=== PATIENT | female | born 1955 | race Caucasian/White ===

== ENCOUNTER 2019-11-29 20:14 | Emergency (ER) | payer MEDICARE, MEDICAID, SELFPAY ==
[2019-11-29 20:29] VITALS: BP 96/64; PULSE 96; RESP 16; TEMP 36.5; O2SAT 98; BMI 17.7
--- NOTE | 2019-11-29 22:26 | W.ED.GENADLT ---
HPI - General Adult General: Chief complaint: General Medical Stated complaint: cut hannah tubing from surgery Time Seen by Provider: 11/29/19 20:59 Source: patient Mode of arrival: ambulatory Limitations: no limitations History of Present Illness: HPI narrative: Patient is a 64-year-old unfortunate lady who was gynecologic and gastrointestinal malignancy and has had multiple surgeries for the same. She most recently had a pelvic clear out surgery in August 2019 and has colostomy and a HANNAH drain. She changes the dressing on her HANNAH drain every day and today well changing the dressing on was caught in the gauze she inadvertently caught to the HANNAH drain tubing. She had material leaking out of the cut end. She is here for evaluation. She has no other symptoms. Associated symptoms: Deny dyspnea, headache(s), nausea, rash, palpitations or vomiting Review of Systems General: Reports: 10 or more systems reviewed and unremarkable except in HPI and below Const: Denies: fever(s), chills or body aches Eyes: Denies: change in vision or blurry vision ENMT: Denies: throat pain, enlarged tonsils, odynophagia, hoarseness, mouth pain or swelling of lips/tongue Card: Denies: palpitations, irregular heart rhythm, edema or swelling of feet/ankles Resp: Denies: dyspnea, productive cough or non-productive cough GI: Reports: abdominal pain (Chronic); Denies: nausea or vomiting : Denies: flank pain, difficulty voiding, dysuria, urinary frequency, urinary urgency or urinary hesitancy Musc: Denies: neck pain, back pain or extremity swelling Skin/Breast: Denies: rash, pruritus or erythema Neuro: Denies: headache(s), numbness in extremities or weakness in extremities Endo: Denies: polyuria, polydipsia or tired all the time PFSH ED PFSH: Social History Smoking and tobacco status: never smoked Alcohol intake: never Substance/Drug Use: never Physical Exam Const: COMMON NORMALS: no acute distress, average body habitus, patient oriented x3, no limitations, healthy appearing, alert and well nourished Neck/C-Spine: COMMON NORMALS: no meningeal signs and no JVD Resp: COMMON NORMALS: normal respiratory effort, No retractions, No use of accessory muscles, clear to auscultation bilaterally and percussion normal AUSCULTATION: clear to auscultation bilaterally PERCUSSION: percussion normal Cardio: COMMON NORMALS: no JVD, regular rate, regular rhythm, S1 normal heart sound present, S2 normal heart sound present, No gallops present (Cardio), No clicks present (Cardio), No murmurs present (Cardio), No rub (Cardio) and Peripheral pulses 2+ throughout RATE: regular rate RHYTHM: regular rhythm HEART SOUNDS: S1 normal heart sound present and S2 normal heart sound present PERIPHERAL PULSES: Peripheral pulses 2+ throughout GI: COMMON NORMALS: Soft to palpation, No hepatosplenomegaly present, no masses and no bruits PALPATION: Yes Soft to palpation and Yes No hepatosplenomegaly present OTHER: She has a urostomy and a colostomy on her lower abdominal wall. She also has a HANNAH drain around the right upper quadrant region. HANNAH drain has been cut and, cut in a diagonal fashion with some brownish material leaking out. About 2 inches of the drain is taken out There is mild erythema around the HANNAH drain sites. : COMMON NORMALS: Yes no CVA tenderness BLADDER/KIDNEY EXAM: Yes no CVA tenderness Back/Pelvis: COMMON NORMALS: no CVA tenderness Neuro: COMMON NORMALS: patient oriented x3 SENSORIUM/ORIENTATION: Yes alert MENINGEAL SIGNS: Yes no meningeal signs Skin: COMMON NORMALS: no rashes or lesions noted, no wounds, turgor normal, no jaundice, no petechiae and no mottling GENERAL SKIN EXAM: no rashes or lesions noted and turgor normal Course Consultations: Consultation #1: Discussed with the surgeon on-call at [facility] he advised that we try to connect the bulb of the HANNAH tube to what his left of the HANNAH tube. She should call tomorrow to follow-up with her surgeons. Vital Signs: Vital signs: Vital Signs Temperature 97.7 F 11/29/19 20:29 Pulse Rate 86 11/29/19 22:41 Respiratory Rate 16 11/29/19 22:41 Blood Pressure 131/58 11/29/19 22:41 Pulse Oximetry 98 11/29/19 22:41 MDM - General Adult MDM Narrative: Medical decision making narrative: 64-year-old female with drain that unfortunately inadvertently cuts the drain while trying to change the dressing. I was able to connect to bulb of the HANNAH drain to the tubing of the HANNAH drain coming out on her abdomen via a size 8 urinary catheter. The connections were taped and a bulky dressing was applied to her abdomen. She is discharged to follow-up with her surgeons tomorrow Medical Records: Attestation: I reviewed the patient's medical records. Discharge Plan Discharge Patient Disposition: Home Clinical Impression: HANNAH drain, broken Qualifiers: Encounter type: initial encounter Qualified Code(s): T85.698A - Other mechanical complication of other specified internal prosthetic devices, implants and grafts, initial encounter Condition: Stable Discharge Orders: Discharge Order (Routine); Ordered 11/29/19 Ordered By: Pasquale Bloom Activity Restrictions/Additional Instructions: Return for any new or worsening symptoms. Take care not to pull the HANNAH drain out. Call the office of the surgeon either Dr. Donovan or Dr. Anders tomorrow for follow-up and to see what the advice you do. Continue other medications and management. Discharge Date/Time: 11/29/19 22:30 Coding Level of Care Code ED Research Test Engine Operator for Chg Fwd Exam Detailed
[2019-11-29 22:41] VITALS: BP 131/58; PULSE 86; RESP 16; O2SAT 98
== END 2019-11-29 22:30 | disposition home or self-care (01) ==
PROVIDERS: Emergency Provider Family Medicine
DX: T85.698A Other mechanical complication of other specified internal prosthetic devices, implants and grafts, initial encounter (principal)
CPT/HCPCS: 12345; 99281

== ENCOUNTER 2020-01-08 19:35 | Emergency (ER) | payer MEDICARE, MEDICAID, SELFPAY ==
[2020-01-08 20:33] VITALS: BP 133/89; PULSE 121; RESP 20; TEMP 36.8; O2SAT 100; BMI 17.6
[2020-01-08 21:00] LABS: Basophils % 0.4 %; Hematocrit 37.4 % (37.0-47.0); Hemoglobin 11.6 g/dL (11.5-15.3); Lymphocytes # 1.4 10^3/uL (0.8-4.8); Mean Corpuscular Volume 83.9 fL (81-99); Mean Platelet Volume 9.9 fL (7.4-10.4); Monocytes # 0.5 10^3/uL (0.2-0.9); Monocytes % 5.2 %; Nucleated Red Blood Cells % 0 %; Platelet Count 430 10^3/cmm (130-400); Red Blood Count 4.46 10^6/uL (4.1-5.3); White Blood Count 9.3 10^3/uL (4.0-10.0)
[2020-01-08 21:17] LABS: Alanine Aminotransferase 46 U/L (0-33); Albumin Level 2.9 g/dL (3.5-5.2); Alkaline Phosphatase 158 IU/L (35-105); Blood Urea Nitrogen 35 mg/dL (8-23); Calcium 9.2 mg/dL (8.5-10.5); Carbon Dioxide 17 mmol/L (22-29); Chloride 102 mmol/L (98-107); Creatinine Clr Calc Pharmacy 54.8777; Globulin 3.7 g/dL (1.3-4.6); Glomerular Filtration Rate 100.3 mL/min (90-130); Glucose 157 mg/dL (65-115); Osmolality Calculated 283 mOsm/kg (285-295); Sodium 131 mmol/L (136-145); Total Bilirubin 0.8 mg/dL (0.15-1.2); Total Protein 6.6 g/dL (6.6-8.7)
[2020-01-08 21:19] LABS: Anion Gap 16.7 (5-19); Aspartate Amino Transferase 38 U/L (0-32); Potassium 4.7 mmol/L (3.5-5.1)
== END 2020-01-09 00:08 ==
LOC: ER 20:21
PROVIDERS: Emergency Provider Family Medicine
DX: Z53.21 Procedure and treatment not carried out due to patient leaving prior to being seen by health care provider (principal)
CPT/HCPCS: 36415; 80053; 85025; 99281

== ENCOUNTER 2020-02-15 15:01 | Outpatient (CLI) | payer MEDICARE, MEDICAID, SELFPAY ==
[2020-02-15 17:12] LABS: Hematocrit 32.1 % (37.0-47.0); Hemoglobin 9.3 g/dL (11.5-15.3); Mean Corpuscular Hemoglobin 27.5 pg (28.0-34.0); Mean Platelet Volume 10.8 fL (7.4-10.4); Platelet Count 323 10^3/cmm (130-400); Red Blood Count 3.38 10^6/uL (4.1-5.3); Red Cell Distribution Width 16.7 % (12.1-15.1); White Blood Count 7.4 10^3/uL (4.0-10.0)
[2020-02-15 17:47] LABS: Alanine Aminotransferase 11 U/L (0-33); Albumin Level 2.9 g/dL (3.5-5.2); Alkaline Phosphatase 121 IU/L (35-105); Aspartate Amino Transferase 16 U/L (0-32); Blood Urea Nitrogen 28 mg/dL (8-23); Calcium 8.8 mg/dL (8.5-10.5); Carbon Dioxide 28 mmol/L (22-29); Chloride 99 mmol/L (98-107); Globulin 3.5 g/dL (1.3-4.6); Glomerular Filtration Rate 160.2 mL/min (90-130); Glucose 91 mg/dL (65-115); Magnesium 2.1 mg/dL (1.7-2.3); Osmolality Calculated 291 mOsm/kg (285-295); Phosphorus 4.5 mg/dL (2.5-4.5); Sodium 138 mmol/L (136-145); Total Bilirubin 0.2 mg/dL (0.15-1.2); Total Protein 6.4 g/dL (6.6-8.7)
[2020-02-15 19:50] LABS: Absolute Segmented Neutrophil 5.6 10/cmm (1.6-7.1); Lymphocytes 21 %; Monocytes Absolute 0.2 10^3/cmm (0.1-0.6); Segmented Neutrophils 75 %; Total Cells Counted 100 (0-100)
[2020-02-15 19:54] LABS: Platelet Estimate Normal (Normal)
[2020-02-15 19:55] LABS: Absolute Neutrophil 5.6 10^3/cmm (1.4-6.5); Eosinophils 0 %
== END 2020-02-15 15:02 | disposition home or self-care (01) ==
LOC: LAB 15:04
PROVIDERS: Visit Provider Colon & Rectal Surgery
DX: Z45.2 Encounter for adjustment and management of vascular access device (principal)
CPT/HCPCS: 80053; 83735; 84100; 85007; 85027

== ENCOUNTER 2020-02-22 16:57 | Outpatient (CLI) | payer MEDICARE, MEDICAID, SELFPAY ==
[2020-02-22 17:38] LABS: Hematocrit 29.4 % (37.0-47.0); Hemoglobin 8.8 g/dL (11.5-15.3); Mean Corpuscular HGB Conc 29.9 g/dL (30.0-36.0); Mean Corpuscular Hemoglobin 27.5 pg (28.0-34.0); Mean Corpuscular Volume 91.9 fL (81-99); Mean Platelet Volume 10.5 fL (7.4-10.4); Platelet Count 333 10^3/cmm (130-400); Red Cell Distribution Width 15.5 % (12.1-15.1); White Blood Count 5.7 10^3/uL (4.0-10.0)
[2020-02-22 18:13] LABS: Absolute Segmented Neutrophil 3.9 10/cmm (1.6-7.1); Band Neutrophils Absolute 0.1 10^3/cmm (0.0-1.2); Eosinophils 1 %; Lymphocytes 24 %; Monocytes Absolute 0.2 10^3/cmm (0.1-0.6); Segmented Neutrophils 69 %; Total Cells Counted 100 (0-100)
[2020-02-22 18:14] LABS: Platelet Estimate Normal (Normal)
[2020-02-22 19:21] LABS: Alanine Aminotransferase 9 U/L (0-33); Albumin Level 2.9 g/dL (3.5-5.2); Alkaline Phosphatase 110 IU/L (35-105); Anion Gap 13.1 (5-19); Aspartate Amino Transferase 20 U/L (0-32); Blood Urea Nitrogen 20 mg/dL (8-23); Carbon Dioxide 25 mmol/L (22-29); Chloride 103 mmol/L (98-107); Globulin 3.7 g/dL (1.3-4.6); Glomerular Filtration Rate 123.8 mL/min (90-130); Glucose 88 mg/dL (65-115); Osmolality Calculated 286 mOsm/kg (285-295); Phosphorus 4.3 mg/dL (2.5-4.5); Potassium 4.1 mmol/L (3.5-5.1); Sodium 137 mmol/L (136-145); Total Bilirubin 0.2 mg/dL (0.15-1.2); Total Protein 6.6 g/dL (6.6-8.7)
== END 2020-02-22 16:58 | disposition home or self-care (01) ==
LOC: LAB 17:01
PROVIDERS: Visit Provider Colon & Rectal Surgery
DX: K63.2 Fistula of intestine (principal)
CPT/HCPCS: 80053; 83735; 84100; 85007; 85027

== ENCOUNTER 2020-02-29 15:06 | Outpatient (CLI) | payer MEDICARE, MEDICAID, SELFPAY ==
[2020-02-29 15:27] LABS: Basophils % 0.6 %; Eosinophils # 0.1 10^3/uL (0.0-0.8); Hematocrit 31.1 % (37.0-47.0); Hemoglobin 9.1 g/dL (11.5-15.3); Lymphocytes # 1.5 10^3/uL (0.8-4.8); Lymphocytes % 31.1 %; Mean Corpuscular HGB Conc 29.3 g/dL (30.0-36.0); Mean Corpuscular Hemoglobin 26.5 pg (28.0-34.0); Mean Corpuscular Volume 90.7 fL (81-99); Mean Platelet Volume 10.4 fL (7.4-10.4); Monocytes # 0.4 10^3/uL (0.2-0.9); Neutrophils % 59.3 %; Nucleated Red Blood Cells % 0 %; Platelet Count 346 10^3/cmm (130-400); Red Blood Count 3.43 10^6/uL (4.1-5.3); Red Cell Distribution Width 15.4 % (12.1-15.1); White Blood Count 4.9 10^3/uL (4.0-10.0)
[2020-02-29 16:15] LABS: Alanine Aminotransferase 10 U/L (0-33); Albumin Level 3.1 g/dL (3.5-5.2); Alkaline Phosphatase 114 IU/L (35-105); Anion Gap 14.5 (5-19); Aspartate Amino Transferase 18 U/L (0-32); Blood Urea Nitrogen 22 mg/dL (8-23); Calcium 9.1 mg/dL (8.5-10.5); Carbon Dioxide 26 mmol/L (22-29); Chloride 103 mmol/L (98-107); Globulin 3.4 g/dL (1.3-4.6); Glomerular Filtration Rate 123.8 mL/min (90-130); Glucose 99 mg/dL (65-115); Osmolality Calculated 291 mOsm/kg (285-295); Phosphorus 4.2 mg/dL (2.5-4.5); Potassium 4.5 mmol/L (3.5-5.1); Sodium 139 mmol/L (136-145); Total Bilirubin 0.2 mg/dL (0.15-1.2); Total Protein 6.5 g/dL (6.6-8.7)
== END 2020-02-29 15:07 | disposition home or self-care (01) ==
PROVIDERS: Visit Provider Colon & Rectal Surgery
DX: K63.2 Fistula of intestine (principal)
CPT/HCPCS: 80053; 83735; 84100; 85025

== ENCOUNTER 2020-03-08 12:13 | Outpatient (CLI) | payer MEDICARE, MEDICAID, SELFPAY ==
[2020-03-08 12:48] LABS: Basophils % 0.5 %; Eosinophils # 0.1 10^3/uL (0.0-0.8); Eosinophils % 0.9 %; Hematocrit 32.6 % (37.0-47.0); Hemoglobin 9.4 g/dL (11.5-15.3); Lymphocytes # 1.5 10^3/uL (0.8-4.8); Lymphocytes % 19.5 %; Mean Corpuscular HGB Conc 28.8 g/dL (30.0-36.0); Mean Corpuscular Hemoglobin 26.1 pg (28.0-34.0); Mean Corpuscular Volume 90.6 fL (81-99); Mean Platelet Volume 10.7 fL (7.4-10.4); Monocytes # 0.5 10^3/uL (0.2-0.9); Monocytes % 6.1 %; Neutrophils # 5.44 10^3/uL (1.8-7.7); Neutrophils % 72.9 %; Nucleated Red Blood Cells % 0 %; Platelet Count 343 10^3/cmm (130-400); Red Cell Distribution Width 15.4 % (12.1-15.1); White Blood Count 7.5 10^3/uL (4.0-10.0)
[2020-03-08 13:23] LABS: Alanine Aminotransferase 12 U/L (0-33); Albumin Level 3.1 g/dL (3.5-5.2); Alkaline Phosphatase 108 IU/L (35-105); Anion Gap 11.4 (5-19); Aspartate Amino Transferase 17 U/L (0-32); Blood Urea Nitrogen 27 mg/dL (8-23); Calcium 8.8 mg/dL (8.5-10.5); Carbon Dioxide 28 mmol/L (22-29); Chloride 104 mmol/L (98-107); Globulin 3.4 g/dL (1.3-4.6); Glomerular Filtration Rate 123.8 mL/min (90-130); Glucose 104 mg/dL (65-115); Magnesium 1.9 mg/dL (1.7-2.3); Osmolality Calculated 293 mOsm/kg (285-295); Phosphorus 4.3 mg/dL (2.5-4.5); Potassium 4.4 mmol/L (3.5-5.1); Sodium 139 mmol/L (136-145); Total Bilirubin 0.2 mg/dL (0.15-1.2); Total Protein 6.5 g/dL (6.6-8.7)
== END 2020-03-08 12:14 | disposition home or self-care (01) ==
LOC: LAB 12:13
PROVIDERS: Visit Provider Colon & Rectal Surgery
DX: K63.2 Fistula of intestine (principal)
CPT/HCPCS: 80053; 83735; 84100; 85025

== ENCOUNTER 2020-03-14 14:32 | Outpatient (CLI) | payer MEDICARE, MEDICAID, SELFPAY ==
[2020-03-14 15:11] LABS: Basophils % 0.3 %; Eosinophils % 0.2 %; Hematocrit 32.9 % (37.0-47.0); Hemoglobin 9.7 g/dL (11.5-15.3); Lymphocytes % 9.9 %; Mean Corpuscular HGB Conc 29.5 g/dL (30.0-36.0); Mean Corpuscular Hemoglobin 25.9 pg (28.0-34.0); Mean Platelet Volume 10.7 fL (7.4-10.4); Monocytes # 0.6 10^3/uL (0.2-0.9); Monocytes % 5.7 %; Neutrophils # 8.63 10^3/uL (1.8-7.7); Neutrophils % 83.7 %; Nucleated Red Blood Cells % 0 %; Platelet Count 350 10^3/cmm (130-400); Red Blood Count 3.74 10^6/uL (4.1-5.3); Red Cell Distribution Width 15.8 % (12.1-15.1); White Blood Count 10.3 10^3/uL (4.0-10.0)
[2020-03-14 15:27] LABS: Alanine Aminotransferase 14 U/L (0-33); Albumin Level 3.3 g/dL (3.5-5.2); Alkaline Phosphatase 117 IU/L (35-105); Anion Gap 16.4 (5-19); Aspartate Amino Transferase 19 U/L (0-32); Blood Urea Nitrogen 29 mg/dL (8-23); Carbon Dioxide 25 mmol/L (22-29); Chloride 101 mmol/L (98-107); Globulin 3.3 g/dL (1.3-4.6); Glomerular Filtration Rate 100.3 mL/min (90-130); Glucose 107 mg/dL (65-115); Osmolality Calculated 292 mOsm/kg (285-295); Phosphorus 4.5 mg/dL (2.5-4.5); Potassium 4.4 mmol/L (3.5-5.1); Sodium 138 mmol/L (136-145); Total Bilirubin 0.2 mg/dL (0.15-1.2); Total Protein 6.6 g/dL (6.6-8.7)
== END 2020-03-14 14:33 | disposition home or self-care (01) ==
PROVIDERS: Visit Provider Colon & Rectal Surgery
DX: K63.2 Fistula of intestine (principal)
CPT/HCPCS: 80053; 83735; 84100; 85025

== ENCOUNTER 2020-03-21 15:06 | Outpatient (CLI) | payer MEDICARE, MEDICAID, SELFPAY ==
[2020-03-21 15:49] LABS: Basophils % 0.5 %; Eosinophils # 0.1 10^3/uL (0.0-0.8); Eosinophils % 1.4 %; Hematocrit 30.8 % (37.0-47.0); Hemoglobin 9.1 g/dL (11.5-15.3); Lymphocytes # 1.9 10^3/uL (0.8-4.8); Lymphocytes % 33.9 %; Mean Corpuscular HGB Conc 29.5 g/dL (30.0-36.0); Mean Corpuscular Hemoglobin 25.8 pg (28.0-34.0); Mean Corpuscular Volume 87.3 fL (81-99); Mean Platelet Volume 10.4 fL (7.4-10.4); Monocytes # 0.4 10^3/uL (0.2-0.9); Monocytes % 7.3 %; Neutrophils # 3.24 10^3/uL (1.8-7.7); Neutrophils % 56.7 %; Nucleated Red Blood Cells % 0 %; Platelet Count 355 10^3/cmm (130-400); Red Blood Count 3.53 10^6/uL (4.1-5.3); Red Cell Distribution Width 15.6 % (12.1-15.1); White Blood Count 5.7 10^3/uL (4.0-10.0)
[2020-03-21 16:37] LABS: Alanine Aminotransferase 10 U/L (0-33); Albumin Level 3.2 g/dL (3.5-5.2); Alkaline Phosphatase 103 IU/L (35-105); Anion Gap 13.3 (5-19); Aspartate Amino Transferase 17 U/L (0-32); Blood Urea Nitrogen 24 mg/dL (8-23); Calcium 9.3 mg/dL (8.5-10.5); Carbon Dioxide 26 mmol/L (22-29); Chloride 107 mmol/L (98-107); Globulin 3.5 g/dL (1.3-4.6); Glomerular Filtration Rate 100.3 mL/min (90-130); Glucose 100 mg/dL (65-115); Osmolality Calculated 298 mOsm/kg (285-295); Phosphorus 3.8 mg/dL (2.5-4.5); Potassium 4.3 mmol/L (3.5-5.1); Sodium 142 mmol/L (136-145); Total Bilirubin 0.2 mg/dL (0.15-1.2); Total Protein 6.7 g/dL (6.6-8.7)
== END 2020-03-21 15:07 | disposition home or self-care (01) ==
PROVIDERS: Visit Provider Colon & Rectal Surgery
DX: K63.2 Fistula of intestine (principal)
CPT/HCPCS: 80053; 83735; 84100; 85025

== ENCOUNTER 2020-03-28 14:34 | Outpatient (CLI) | payer MEDICARE, MEDICAID, SELFPAY ==
[2020-03-28 14:51] LABS: Hemoglobin 9.6 g/dL (11.5-15.3); Mean Corpuscular HGB Conc 29.1 g/dL (30.0-36.0); Mean Corpuscular Hemoglobin 25.5 pg (28.0-34.0); Mean Corpuscular Volume 87.8 fL (81-99); Mean Platelet Volume 10.5 fL (7.4-10.4); Platelet Count 342 10^3/cmm (130-400); Red Blood Count 3.76 10^6/uL (4.1-5.3); Red Cell Distribution Width 15.8 % (12.1-15.1); White Blood Count 7.2 10^3/uL (4.0-10.0)
[2020-03-28 15:12] LABS: Alanine Aminotransferase 11 U/L (0-33); Albumin Level 3.3 g/dL (3.5-5.2); Alkaline Phosphatase 107 IU/L (35-105); Anion Gap 13.1 (5-19); Aspartate Amino Transferase 18 U/L (0-32); Blood Urea Nitrogen 32 mg/dL (8-23); Calcium 9.3 mg/dL (8.5-10.5); Carbon Dioxide 23 mmol/L (22-29); Chloride 109 mmol/L (98-107); Globulin 3.7 g/dL (1.3-4.6); Glomerular Filtration Rate 100.3 mL/min (90-130); Glucose 103 mg/dL (65-115); Osmolality Calculated 299 mOsm/kg (285-295); Phosphorus 3.9 mg/dL (2.5-4.5); Potassium 4.1 mmol/L (3.5-5.1); Sodium 141 mmol/L (136-145); Total Bilirubin 0.3 mg/dL (0.15-1.2)
[2020-03-28 15:43] LABS: Total Cells Counted 100 (0-100)
[2020-03-28 15:46] LABS: Absolute Neutrophil 6.1 10^3/cmm (1.4-6.5); Absolute Segmented Neutrophil 6.1 10/cmm (1.6-7.1); Anisocytosis 1+; Eosinophils 0 %; Lymphocytes 11 %; Monocytes Absolute 0.1 10^3/cmm (0.1-0.6); Platelet Estimate Normal (Normal); Segmented Neutrophils 85 %
== END 2020-03-28 14:35 | disposition home or self-care (01) ==
LOC: LAB 14:37
PROVIDERS: Visit Provider Colon & Rectal Surgery
DX: K63.2 Fistula of intestine (principal)
CPT/HCPCS: 80053; 83735; 84100; 85007; 85027

== ENCOUNTER 2020-04-04 10:08 | Outpatient (CLI) | payer MEDICARE, MEDICAID, SELFPAY ==
[2020-04-04 10:39] LABS: Basophils % 0.5 %; Eosinophils % 0.5 %; Hematocrit 31.2 % (37.0-47.0); Hemoglobin 9.2 g/dL (11.5-15.3); Lymphocytes # 1.5 10^3/uL (0.8-4.8); Lymphocytes % 22.8 %; Mean Corpuscular HGB Conc 29.5 g/dL (30.0-36.0); Mean Corpuscular Hemoglobin 24.7 pg (28.0-34.0); Mean Corpuscular Volume 83.9 fL (81-99); Mean Platelet Volume 11.2 fL (7.4-10.4); Monocytes # 0.5 10^3/uL (0.2-0.9); Monocytes % 7.8 %; Neutrophils # 4.55 10^3/uL (1.8-7.7); Neutrophils % 68.2 %; Nucleated Red Blood Cells % 0 %; Platelet Count 338 10^3/cmm (130-400); Red Blood Count 3.72 10^6/uL (4.1-5.3); Red Cell Distribution Width 15.7 % (12.1-15.1); White Blood Count 6.7 10^3/uL (4.0-10.0)
[2020-04-04 10:56] LABS: Magnesium 1.8 mg/dL (1.7-2.3); Phosphorus 3.8 mg/dL (2.5-4.5)
[2020-04-04 11:50] LABS: Alanine Aminotransferase 10 U/L (0-33); Albumin Level 3.5 g/dL (3.5-5.2); Alkaline Phosphatase 106 IU/L (35-105); Aspartate Amino Transferase 16 U/L (0-32); Blood Urea Nitrogen 27 mg/dL (8-23); Carbon Dioxide 23 mmol/L (22-29); Chloride 105 mmol/L (98-107); Globulin 3.2 g/dL (1.3-4.6); Glomerular Filtration Rate 100.3 mL/min (90-130); Glucose 104 mg/dL (65-115); Osmolality Calculated 297 mOsm/kg (285-295); Sodium 141 mmol/L (136-145); Total Bilirubin 0.2 mg/dL (0.15-1.2); Total Protein 6.7 g/dL (6.6-8.7)
== END 2020-04-04 10:09 | disposition home or self-care (01) ==
LOC: LAB 10:10
PROVIDERS: Visit Provider Colon & Rectal Surgery
DX: K63.2 Fistula of intestine (principal)
CPT/HCPCS: 80053; 83735; 84100; 85025

== ENCOUNTER 2020-04-11 13:37 | Outpatient (CLI) | payer MEDICARE, MEDICAID, SELFPAY ==
[2020-04-11 14:00] LABS: Hematocrit 36.9 % (37.0-47.0); Hemoglobin 10.6 g/dL (11.5-15.3); Mean Corpuscular HGB Conc 28.7 g/dL (30.0-36.0); Mean Corpuscular Hemoglobin 24.1 pg (28.0-34.0); Mean Corpuscular Volume 84.1 fL (81-99); Mean Platelet Volume 10.3 fL (7.4-10.4); Platelet Count 404 10^3/cmm (130-400); Red Blood Count 4.39 10^6/uL (4.1-5.3); Red Cell Distribution Width 15.3 % (12.1-15.1); White Blood Count 7.2 10^3/uL (4.0-10.0)
[2020-04-11 14:33] LABS: Absolute Segmented Neutrophil 5.5 10/cmm (1.6-7.1); Band Neutrophils Absolute 0.1 10^3/cmm (0.0-1.2); Lymphocytes 19 %; Monocytes Absolute 0.2 10^3/cmm (0.1-0.6); Segmented Neutrophils 76 %; Total Cells Counted 100 (0-100)
[2020-04-11 14:35] LABS: Alanine Aminotransferase 8 U/L (0-33); Albumin Level 4.2 g/dL (3.5-5.2); Alkaline Phosphatase 140 IU/L (35-105); Anion Gap 17.2 (5-19); Aspartate Amino Transferase 18 U/L (0-32); Blood Urea Nitrogen 30 mg/dL (8-23); Calcium 9.6 mg/dL (8.5-10.5); Carbon Dioxide 25 mmol/L (22-29); Chloride 101 mmol/L (98-107); Globulin 3.8 g/dL (1.3-4.6); Glucose 94 mg/dL (65-115); Magnesium 2.2 mg/dL (1.7-2.3); Osmolality Calculated 294 mOsm/kg (285-295); Potassium 4.2 mmol/L (3.5-5.1); Sodium 139 mmol/L (136-145); Total Bilirubin 0.2 mg/dL (0.15-1.2)
[2020-04-11 14:39] LABS: Absolute Neutrophil 5.6 10^3/cmm (1.4-6.5); Anisocytosis 1+; Platelet Estimate Normal (Normal)
[2020-04-11 15:31] LABS: Eosinophils 0 %
== END 2020-04-11 13:38 | disposition home or self-care (01) ==
LOC: LAB 13:40
PROVIDERS: Visit Provider Colon & Rectal Surgery
DX: K63.2 Fistula of intestine (principal)
CPT/HCPCS: 80053; 83735; 84100; 85007; 85027

== ENCOUNTER 2020-04-18 16:34 | Outpatient (CLI) | payer MEDICARE, MEDICAID, SELFPAY ==
[2020-04-18 17:14] LABS: Hematocrit 31.6 % (37.0-47.0); Hemoglobin 9.4 g/dL (11.5-15.3); Mean Corpuscular HGB Conc 29.7 g/dL (30.0-36.0); Mean Corpuscular Hemoglobin 24.5 pg (28.0-34.0); Mean Corpuscular Volume 82.5 fL (81-99); Mean Platelet Volume 10.9 fL (7.4-10.4); Platelet Count 346 10^3/cmm (130-400); Red Blood Count 3.83 10^6/uL (4.1-5.3); Red Cell Distribution Width 15.5 % (12.1-15.1); White Blood Count 4.7 10^3/uL (4.0-10.0)
[2020-04-18 17:18] LABS: Alanine Aminotransferase 9 U/L (0-33); Albumin Level 3.8 g/dL (3.5-5.2); Alkaline Phosphatase 124 IU/L (35-105); Anion Gap 16.7 (5-19); Aspartate Amino Transferase 18 U/L (0-32); Blood Urea Nitrogen 22 mg/dL (8-23); Calcium 9.3 mg/dL (8.5-10.5); Carbon Dioxide 26 mmol/L (22-29); Chloride 103 mmol/L (98-107); Globulin 3.7 g/dL (1.3-4.6); Glucose 95 mg/dL (65-115); Magnesium 2.1 mg/dL (1.7-2.3); Osmolality Calculated 297 mOsm/kg (285-295); Phosphorus 3.8 mg/dL (2.5-4.5); Potassium 3.7 mmol/L (3.5-5.1); Sodium 142 mmol/L (136-145); Total Bilirubin 0.2 mg/dL (0.15-1.2); Total Protein 7.5 g/dL (6.6-8.7)
[2020-04-18 17:19] LABS: Absolute Segmented Neutrophil 2.6 10/cmm (1.6-7.1); Band Neutrophils Absolute 0.2 10^3/cmm (0.0-1.2); Eosinophils 0 %; Lymphocytes 38 %; Monocytes Absolute 0.1 10^3/cmm (0.1-0.6); Segmented Neutrophils 55 %; Total Cells Counted 100 (0-100)
[2020-04-18 17:20] LABS: Absolute Neutrophil 2.8 10^3/cmm (1.4-6.5); Anisocytosis Trace; Platelet Estimate Normal (Normal); Poikilocytosis Trace; Smudge Cells 1+
== END 2020-04-18 16:35 | disposition home or self-care (01) ==
LOC: LAB 16:39
PROVIDERS: Visit Provider Colon & Rectal Surgery
DX: K63.2 Fistula of intestine (principal)
CPT/HCPCS: 80053; 83735; 84100; 85007; 85027

== ENCOUNTER 2020-04-25 14:22 | Outpatient (CLI) | payer MEDICARE, MEDICAID, SELFPAY ==
[2020-04-25 14:33] LABS: Basophils % 0.4 %; Eosinophils % 0.1 %; Hematocrit 30.6 % (37.0-47.0); Lymphocytes # 1.3 10^3/uL (0.8-4.8); Lymphocytes % 15.3 %; Mean Corpuscular HGB Conc 29.4 g/dL (30.0-36.0); Mean Corpuscular Hemoglobin 23.6 pg (28.0-34.0); Mean Corpuscular Volume 80.3 fL (81-99); Mean Platelet Volume 10.7 fL (7.4-10.4); Monocytes # 0.5 10^3/uL (0.2-0.9); Monocytes % 5.5 %; Neutrophils # 6.58 10^3/uL (1.8-7.7); Neutrophils % 78.3 %; Nucleated Red Blood Cells % 0 %; Platelet Count 260 10^3/cmm (130-400); Red Blood Count 3.81 10^6/uL (4.1-5.3); Red Cell Distribution Width 15.7 % (12.1-15.1); White Blood Count 8.4 10^3/uL (4.0-10.0)
[2020-04-25 15:06] LABS: Alanine Aminotransferase 8 U/L (0-33); Albumin Level 3.2 g/dL (3.5-5.2); Alkaline Phosphatase 105 IU/L (35-105); Anion Gap 14.6 (5-19); Aspartate Amino Transferase 16 U/L (0-32); Blood Urea Nitrogen 29 mg/dL (8-23); Calcium 8.5 mg/dL (8.5-10.5); Carbon Dioxide 24 mmol/L (22-29); Chloride 100 mmol/L (98-107); Globulin 3.6 g/dL (1.3-4.6); Glomerular Filtration Rate 71.8 mL/min (90-130); Glucose 195 mg/dL (65-115); Magnesium 2.1 mg/dL (1.7-2.3); Osmolality Calculated 291 mOsm/kg (285-295); Phosphorus 3.3 mg/dL (2.5-4.5); Potassium 3.6 mmol/L (3.5-5.1); Sodium 135 mmol/L (136-145); Total Bilirubin 0.4 mg/dL (0.15-1.2); Total Protein 6.8 g/dL (6.6-8.7)
== END 2020-04-25 14:23 | disposition home or self-care (01) ==
LOC: LAB 14:25
PROVIDERS: Visit Provider Colon & Rectal Surgery
DX: K63.2 Fistula of intestine (principal)
CPT/HCPCS: 80053; 83735; 84100; 85025

== ENCOUNTER 2020-05-02 10:45 | Outpatient (CLI) | payer MEDICARE, MEDICAID, SELFPAY ==
[2020-05-02 11:26] LABS: Basophils % 0.5 %; Eosinophils # 0.1 10^3/uL (0.0-0.8); Eosinophils % 1.3 %; Hematocrit 32.6 % (37.0-47.0); Hemoglobin 9.4 g/dL (11.5-15.3); Lymphocytes # 1.6 10^3/uL (0.8-4.8); Lymphocytes % 26.3 %; Mean Corpuscular HGB Conc 28.8 g/dL (30.0-36.0); Mean Corpuscular Hemoglobin 23.6 pg (28.0-34.0); Mean Corpuscular Volume 81.9 fL (81-99); Mean Platelet Volume 10.6 fL (7.4-10.4); Monocytes # 0.5 10^3/uL (0.2-0.9); Monocytes % 8.3 %; Neutrophils # 3.82 10^3/uL (1.8-7.7); Neutrophils % 63.3 %; Nucleated Red Blood Cells % 0 %; Platelet Count 340 10^3/cmm (130-400); Red Blood Count 3.98 10^6/uL (4.1-5.3); Red Cell Distribution Width 15.8 % (12.1-15.1)
[2020-05-02 12:04] LABS: Alanine Aminotransferase 11 U/L (0-33); Albumin Level 3.6 g/dL (3.5-5.2); Alkaline Phosphatase 105 IU/L (35-105); Anion Gap 13.6 (5-19); Aspartate Amino Transferase 17 U/L (0-32); Blood Urea Nitrogen 35 mg/dL (8-23); Calcium 9.2 mg/dL (8.5-10.5); Carbon Dioxide 23 mmol/L (22-29); Chloride 105 mmol/L (98-107); Globulin 3.6 g/dL (1.3-4.6); Glomerular Filtration Rate 83.7 mL/min (90-130); Glucose 134 mg/dL (65-115); Magnesium 2.1 mg/dL (1.7-2.3); Osmolality Calculated 294 mOsm/kg (285-295); Phosphorus 4.3 mg/dL (2.5-4.5); Potassium 4.6 mmol/L (3.5-5.1); Sodium 137 mmol/L (136-145); Total Bilirubin 0.2 mg/dL (0.15-1.2); Total Protein 7.2 g/dL (6.6-8.7)
[2020-05-03 10:51] LABS: Ferritin 56 ng/mL (15-150); Iron 22 ug/dL (37-145); Percent Saturation 6.7 % (20-50); Total Iron Binding Capacity 328 mcg/dl; Unsaturated Iron Binding 306 ug/dL (112-347)
== END 2020-05-02 10:46 | disposition home or self-care (01) ==
PROVIDERS: Visit Provider Colon & Rectal Surgery
DX: Z43.3 Encounter for attention to colostomy; R62.7 Adult failure to thrive; K63.2 Fistula of intestine
CPT/HCPCS: 80053; 82728; 83540; 83550; 83735; 84100; 85025

== ENCOUNTER 2020-05-16 11:22 | Outpatient (CLI) | payer MEDICARE, MEDICAID, SELFPAY ==
[2020-05-16 11:54] LABS: Hematocrit 31.9 % (37.0-47.0); Hemoglobin 9.6 g/dL (11.5-15.3); Mean Corpuscular HGB Conc 30.1 g/dL (30.0-36.0); Mean Corpuscular Hemoglobin 23.8 pg (28.0-34.0); Mean Corpuscular Volume 79.2 fL (81-99); Mean Platelet Volume 11.1 fL (7.4-10.4); Platelet Count 297 10^3/cmm (130-400); Red Blood Count 4.03 10^6/uL (4.1-5.3); Red Cell Distribution Width 16.4 % (12.1-15.1); White Blood Count 9.6 10^3/uL (4.0-10.0)
[2020-05-16 12:09] LABS: Alanine Aminotransferase 12 U/L (0-33); Albumin Level 3.6 g/dL (3.5-5.2); Alkaline Phosphatase 109 IU/L (35-105); Aspartate Amino Transferase 17 U/L (0-32); Blood Urea Nitrogen 27 mg/dL (8-23); Carbon Dioxide 22 mmol/L (22-29); Chloride 101 mmol/L (98-107); Globulin 3.7 g/dL (1.3-4.6); Glomerular Filtration Rate 83.7 mL/min (90-130); Glucose 140 mg/dL (65-115); Magnesium 2.2 mg/dL (1.7-2.3); Osmolality Calculated 289 mOsm/kg (285-295); Sodium 136 mmol/L (136-145); Total Bilirubin 0.6 mg/dL (0.15-1.2); Total Protein 7.3 g/dL (6.6-8.7)
[2020-05-16 12:18] LABS: Absolute Segmented Neutrophil 7.4 10/cmm (1.6-7.1); Lymphocytes 21 %; Monocytes Absolute 0.1 10^3/cmm (0.1-0.6); Segmented Neutrophils 77 %; Total Cells Counted 100 (0-100)
[2020-05-16 12:19] LABS: Anisocytosis Trace; Platelet Estimate Normal (Normal); Poikilocytosis Trace
[2020-05-16 12:20] LABS: Absolute Neutrophil 7.4 10^3/cmm (1.4-6.5); Eosinophils 0 %
== END 2020-05-16 11:23 | disposition home or self-care (01) ==
PROVIDERS: Visit Provider Colon & Rectal Surgery
DX: K63.2 Fistula of intestine (principal)
CPT/HCPCS: 80053; 83735; 84100; 85007; 85027

== ENCOUNTER 2020-06-04 15:55 | Emergency (ER) | payer MEDICARE, MEDICAID, SELFPAY ==
[2020-06-04 16:08] VITALS: BP 154/83; PULSE 86; RESP 18; TEMP 36.8; O2SAT 100; BMI 21.6
--- NOTE | 2020-06-04 16:21 | ECG_ITS ---
[facility] Test Date: 2020-06-04 Pat Name: Deborah Inman Department: Room: Gender: Female Social Service Agency Director: : 1955 Requested By: Pasquale Bloom I Order Number: [id number] Mercedes MD: Sherri Baird M.D. Measurements Intervals [place] Rate: 81 P: 24 MN: 149 QRS: 67 QRSD: 85 T: 48 QT: 367 QTc: 427 Interpretive Statements SINUS RHYTHM No previous ECG available for comparison Electronically Signed On 06-04-2020 19:26:05 VEGETABLE SPECKER by Sherri Baird M.D. [id number]
--- NOTE | 2020-06-04 16:22 | W.ED.GENADLT ---
HPI - General Adult General: Chief complaint: General Medical Stated complaint: Physician requested EKG Time Seen by Provider: 06/04/20 16:07 Source: patient Mode of arrival: ambulatory Limitations: no limitations History of Present Illness: HPI narrative: The patient is a 65-year-old female with history of multiple cancers and has had multiple surgeries for the cancer. She is currently on methadone for pain and her pain specialist needs to increase the dose of the methadone, however prior to that they require an EKG. It appears an EKG request was faxed to outpatient but somehow it was not received or something happened to the order. She is here to obtain an EKG to be faxed to her doctor prior to increase the dose of methadone. The patient has no complaints today. Associated symptoms: Deny dyspnea, headache(s), nausea, rash, palpitations or vomiting Review of Systems General: Reports: 10 or more systems reviewed and unremarkable except in HPI and below Const: Denies: fever(s), chills or body aches Eyes: Denies: change in vision or blurry vision ENMT: Denies: throat pain, enlarged tonsils, odynophagia, hoarseness, mouth pain or swelling of lips/tongue Card: Denies: palpitations, irregular heart rhythm, edema or swelling of feet/ankles Resp: Denies: dyspnea, productive cough or non-productive cough GI: Denies: abdominal pain, nausea or vomiting : Denies: flank pain, difficulty voiding, dysuria, urinary frequency, urinary urgency or urinary hesitancy Musc: Denies: neck pain, back pain or extremity swelling Skin/Breast: Denies: rash, pruritus or erythema Neuro: Denies: headache(s), numbness in extremities or weakness in extremities Endo: Denies: polyuria, polydipsia or tired all the time PFSH ED PFSH: Social History (Reviewed 11/29/19 @ 23:48 by Pasquale Bloom MD, [facility] [place]) Smoking and tobacco status: never smoked Alcohol intake: never Physical Exam Const: COMMON NORMALS: no acute distress, average body habitus, patient oriented x3, no limitations, healthy appearing, alert and well nourished Neck/C-Spine: COMMON NORMALS: no meningeal signs and no JVD Resp: COMMON NORMALS: normal respiratory effort, No retractions, No use of accessory muscles, clear to auscultation bilaterally and percussion normal AUSCULTATION: clear to auscultation bilaterally PERCUSSION: percussion normal Cardio: COMMON NORMALS: no JVD, regular rate, regular rhythm, S1 normal heart sound present, S2 normal heart sound present, No gallops present (Cardio), No clicks present (Cardio), No murmurs present (Cardio), No rub (Cardio) and Peripheral pulses 2+ throughout RATE: regular rate RHYTHM: regular rhythm HEART SOUNDS: S1 normal heart sound present and S2 normal heart sound present PERIPHERAL PULSES: Peripheral pulses 2+ throughout GI: COMMON NORMALS: Normal to inspection, nondistended, normoactive bowel sounds present, Soft to palpation, non-tender, No hepatosplenomegaly present, no masses and no bruits PALPATION: Yes Soft to palpation and Yes No hepatosplenomegaly present Extremity: COMMON NORMALS: normal to inspection, full ROM, capillary refill normal, no calf tenderness and no pedal edema NARRATIVE EXTREMITY EXAM: PICC line in left upper arm. Appears clean and dry, no signs of erythema or cellulitis noted. Neuro: COMMON NORMALS: patient oriented x3 SENSORIUM/ORIENTATION: Yes alert MENINGEAL SIGNS: Yes no meningeal signs Course Reevaluation(s): Reevaluation #1: Discussed my conversation with Dr. Pacheco with her. Explained that I will fax the EKG to her requesting doctor. I also gave her a copy of her EKG so she can have that in case the fax does not go through. She voiced understanding and is in agreement with the plan. She will be discharged home. Time: 16:36 Consultations: Consultation #1: Discussed the patient with Dr. Pacheco who is on-call for Dr. Vivian De Guzman who is the one who requested the EKG. He advised that I fax the EKG to [phone]. Time: 16:20 Vital Signs: Vital signs: Vital Signs Temperature 98.2 F 06/04/20 16:49 Pulse Rate 86 06/04/20 16:49 Respiratory Rate 18 06/04/20 16:49 Blood Pressure 154/83 06/04/20 16:49 Pulse Oximetry 96 06/04/20 16:49 MDM - General Adult MDM Narrative: Medical decision making narrative: 65-year-old female patient who came to the emergency room because she needs an EKG done so her doctor can increase the dose of her methadone. She has no complaints. EKG done and was normal. EKG was faxed to her doctor and she also was given a copy. Medical Records: Attestation: I reviewed the patient's medical records. Discharge Plan Discharge Patient Disposition: Home Clinical Impression: Worried well Condition: Stable Prescriptions: Continued tizanidine 4 mg tablet 4 mg PO Q8H PRN (Reason: Pain) RF: 0 methadone 5 mg tablet 5 mg PO BID PRN (Reason: Pain) RF: 0 Discharge Orders: Discharge ED (Routine); Ordered 06/04/20 Ordered By: Paqsuale Bloom Discharge Diet: Usual diet Discharge Activity: Resume usual activity Patient Instructions: Opioid Safety Activity Restrictions/Additional Instructions: Return for any new or worsening symptoms. Follow-up with your primary care provider within 3 days and pain specialist as scheduled. You have been given a copy of your EKG and one will be faxed to your doctor's office. Coding Level of Care Code ED Orthotist Prosthetist for Jarrett Anna
[2020-06-04 16:49] VITALS: BP 154/83; PULSE 86; RESP 18; TEMP 36.8; O2SAT 96
== END 2020-06-04 16:51 | disposition home or self-care (01) ==
PROVIDERS: Emergency Provider Family Medicine
DX: Z71.1 Person with feared health complaint in whom no diagnosis is made (principal)
CPT/HCPCS: 93005; 99282

== ENCOUNTER 2020-06-06 10:33 | Outpatient (CLI) | payer MEDICARE, MEDICAID, SELFPAY ==
[2020-06-06 11:08] LABS: Hematocrit 29.4 % (37.0-47.0); Hemoglobin 8.5 g/dL (11.5-15.3); Mean Corpuscular HGB Conc 28.9 g/dL (30.0-36.0); Mean Corpuscular Hemoglobin 22.8 pg (28.0-34.0); Mean Corpuscular Volume 78.8 fL (81-99); Mean Platelet Volume 11.1 fL (7.4-10.4); Platelet Count 289 10^3/cmm (130-400); Red Blood Count 3.73 10^6/uL (4.1-5.3); Red Cell Distribution Width 16.9 % (12.1-15.1)
[2020-06-06 11:21] LABS: Alanine Aminotransferase 8 U/L (0-33); Albumin Level 3.4 g/dL (3.5-5.2); Alkaline Phosphatase 105 IU/L (35-105); Anion Gap 13.9 (5-19); Aspartate Amino Transferase 14 U/L (0-32); Blood Urea Nitrogen 30 mg/dL (8-23); Calcium 9.1 mg/dL (8.5-10.5); Carbon Dioxide 28 mmol/L (22-29); Chloride 100 mmol/L (98-107); Globulin 3.6 g/dL (1.3-4.6); Glomerular Filtration Rate 83.7 mL/min (90-130); Glucose 167 mg/dL (65-115); Magnesium 2.2 mg/dL (1.7-2.3); Osmolality Calculated 296 mOsm/kg (285-295); Phosphorus 4.4 mg/dL (2.5-4.5); Potassium 3.9 mmol/L (3.5-5.1); Sodium 138 mmol/L (136-145); Total Bilirubin 0.3 mg/dL (0.15-1.2)
[2020-06-06 11:40] LABS: Absolute Segmented Neutrophil 2.8 10/cmm (1.6-7.1); Band Neutrophils Absolute 0.1 10^3/cmm (0.0-1.2); Eosinophils 1 %; Lymphocytes 24 %; Monocytes Absolute 0.1 10^3/cmm (0.1-0.6); Segmented Neutrophils 70 %; Total Cells Counted 100 (0-100)
[2020-06-06 11:41] LABS: Absolute Neutrophil 2.9 10^3/cmm (1.4-6.5); Anisocytosis Trace; Platelet Estimate Normal (Normal)
== END 2020-06-06 10:34 | disposition home or self-care (01) ==
LOC: LAB 10:37
PROVIDERS: Visit Provider Colon & Rectal Surgery
DX: K63.2 Fistula of intestine (principal)
CPT/HCPCS: 80053; 83735; 84100; 85007; 85027

== ENCOUNTER 2020-08-08 13:17 | Outpatient (CLI) | payer MEDICARE, MEDICAID, SELFPAY ==
[2020-08-08 13:47] LABS: Hematocrit 34.4 % (37.0-47.0); Hemoglobin 10.6 g/dL (11.5-15.3); Mean Corpuscular HGB Conc 30.8 g/dL (30.0-36.0); Mean Corpuscular Hemoglobin 25.7 pg (28.0-34.0); Mean Corpuscular Volume 83.3 fL (81-99); Mean Platelet Volume 9.6 fL (7.4-10.4); Platelet Count 500 10^3/cmm (130-400); Red Blood Count 4.13 10^6/uL (4.1-5.3); White Blood Count 8.3 10^3/uL (4.0-10.0)
[2020-08-08 14:22] LABS: Absolute Segmented Neutrophil 5.9 10/cmm (1.6-7.1); Basophils Absolute 0.1 10^3/cmm (0.0-0.2); Eosinophils 0 %; Lymphocytes 21 %; Monocytes Absolute 0.3 10^3/cmm (0.1-0.6); Segmented Neutrophils 71 %; Total Cells Counted 100 (0-100)
[2020-08-08 14:23] LABS: Absolute Neutrophil 5.9 10^3/cmm (1.4-6.5); Anion Gap 18.2 (5-19); Anisocytosis 1+; Blood Urea Nitrogen 25 mg/dL (8-23); Carbon Dioxide 14 mmol/L (22-29); Chloride 104 mmol/L (98-107); Glomerular Filtration Rate 55.5 mL/min (90-130); Glucose 161 mg/dL (65-115); Magnesium 1.9 mg/dL (1.7-2.3); Osmolality Calculated 282 mOsm/kg (285-295); Phosphorus 3.3 mg/dL (2.5-4.5); Platelet Estimate Normal (Normal); Potassium 4.2 mmol/L (3.5-5.1); Sodium 132 mmol/L (136-145)
== END 2020-08-08 13:18 | disposition home or self-care (01) ==
PROVIDERS: Visit Provider Colon & Rectal Surgery
DX: Z43.1 Encounter for attention to gastrostomy (principal)
CPT/HCPCS: 80048; 83735; 84100; 85007; 85027

== ENCOUNTER → 2021-09-15 15:35 | Outpatient (BNVA) | payer MEDICARE, MEDICAID, SELFPAY | PROVIDERS: Visit Provider Family Medicine | DX: M47.812 Spondylosis without myelopathy or radiculopathy, cervical region (principal); Z76.89 Persons encountering health services in other specified circumstances; Z85.9 Personal history of malignant neoplasm, unspecified; E78.2 Mixed hyperlipidemia | CPT/HCPCS: 80053; 80061; 85025 ==

== ENCOUNTER → 2022-01-10 16:23 | Outpatient (BNVA) | payer MEDICARE, MEDICAID, SELFPAY | PROVIDERS: Visit Provider Family Medicine | DX: K52.9 Noninfective gastroenteritis and colitis, unspecified (principal); L65.9 Nonscarring hair loss, unspecified; R53.83 Other fatigue; R68.89 Other general symptoms and signs; Z85.9 Personal history of malignant neoplasm, unspecified; M47.812 Spondylosis without myelopathy or radiculopathy, cervical region | CPT/HCPCS: 82607; 82746; 84439; 84443; 85025; 87177; 87209; 87493; 87506 ==

== ENCOUNTER 2022-01-15 21:46 | Inpatient (IN) | payer MEDICARE, MEDICAID, SELFPAY ==
[2022-01-15 21:49] VITALS: BMI 13.6
[2022-01-15 21:54] VITALS: BP 154/71; PULSE 73; RESP 22; O2SAT 99
--- NOTE | 2022-01-15 21:57 | CTR_ITS ---
PROCEDURE INFORMATION: Exam: CT Head Without Contrast Exam date and time: 01/15/2022 11:06 PM Age: 66 years old Clinical indication: Injury or trauma; Blunt trauma (contusions or hematomas); Patient HX: Patient found laying in kitchen floor on RT side. Reported patient left alone approximately 1.5 days. States struck head during fall but doesnt remember after. Patient very lethargic with labored breathing. Also C/O of RT side rib pain. History of colon cancer. TECHNIQUE: Imaging protocol: Computed tomography of the head without contrast. Radiation optimization: All CT scans at this facility use at least one of these dose optimization techniques: automated exposure control; mA and/or kV adjustment per patient size (includes targeted exams where dose is matched to clinical indication); or iterative reconstruction. COMPARISON: No relevant prior studies available. RADIATION DOSE METRICS: Total DLP (mGy-cm): 921.98 FINDINGS: Brain: Mild parenchymal volume loss noted. There is decreased attenuation of the periventricular white matter, consistent with mild chronic microangiopathic white matter disease. No intracranial hemorrhage noted. No parenchymal edema identified. Cerebral ventricles: No ventriculomegaly. Paranasal sinuses: Visualized sinuses are unremarkable. No fluid levels. Mastoid air cells: Unremarkable as visualized. No mastoid effusion. Bones/joints: Unremarkable. No acute fracture. Soft tissues: Unremarkable. CT/CT head wo con* [id number] IMPRESSION: No acute intracranial abnormality demonstrated.
--- NOTE | 2022-01-15 21:57 | XRR_ITS ---
PROCEDURE INFORMATION: Exam: XR Chest Exam date and time: 01/15/2022 10:05 PM Age: 66 years old Clinical indication: Pain; Other: PT fell; Patient HX: Very confused unable to cooperate. Unknown history; Additional info: Fall TECHNIQUE: Imaging protocol: Radiologic exam of the chest. Views: 1 view. COMPARISON: No relevant prior studies available. FINDINGS: Lungs: Multiple calcified granulomas scattered throughout both lungs. Dense opacification with surrounding ground-glass opacity in the lateral right upper and middle lobes. Pleural spaces: No pleural effusion. No pneumothorax. Heart/Mediastinum: The cardiac silhouette is mildly enlarged. Mediastinal contours are unremarkable. Surgical clips in the upper abdomen and lower mediastinum. Vasculature: Vascular calcifications in the aorta. Bones/joints: Bones are diffusely osteopenic. Patient has had a previous fusion in the lower cervical spine. No acute fracture. XR/XR chest 1V portable [id number] IMPRESSION: 1. Dense opacification with surrounding ground-glass opacity in the lateral right upper and middle lobes. Findings are mostly suspicious for a right-sided pneumonia. Possible pulmonary contusion cannot be completely ruled out given recent trauma history. Recommend clinical correlation. CT scan of the chest may be obtained for further evaluation if it will change clinical management. Also recommend followup chest imaging after treatment to insure resolution of these findings. 2. No acute fracture. 3. Incidental/nonacute findings are listed in the report. COMMENTS: Urgent results were discussed with CLEVE Knott on 01/15/2022 at 11:36 PM CDT.
--- NOTE | 2022-01-15 21:57 | CTR_ITS ---
PROCEDURE INFORMATION: Exam: CT Cervical Spine Without Contrast Exam date and time: 01/15/2022 11:09 PM Age: 66 years old Clinical indication: Injury or trauma; Blunt trauma; Prior surgery; Surgery type: Cervical fusion; Patient HX: Patient found laying in kitchen floor on RT side. Reported patient left alone approximately 1.5 days. States struck head during fall but doesnt remember after. Patient very lethargic with labored breathing. Also C/O of RT side rib pain. History of colon cancer. TECHNIQUE: Imaging protocol: Computed tomography of the cervical spine without contrast. Radiation optimization: All CT scans at this facility use at least one of these dose optimization techniques: automated exposure control; mA and/or kV adjustment per patient size (includes targeted exams where dose is matched to clinical indication); or iterative reconstruction. COMPARISON: CT head wo con* [id number] 01/15/2022 11:06 PM RADIATION DOSE METRICS: Total DLP (mGy-cm): 127.27 FINDINGS: Bones/joints: Status post anterior interbody fusion C5 through C7. Degenerative disc narrowing noted at C4-C5. No severe cervical spinal canal stenosis demonstrated at any level. Mild degenerative facet joint changes are noted throughout the cervical spine. Lungs: Visualized portions of the lung apices are unremarkable. Pleural spaces: No apical pneumothorax demonstrated. Soft tissues: Unremarkable. CT/CT cervical spin wo con* [id number] IMPRESSION: 1. Status post anterior interbody fusion C5 through C7. Visualized hardware appears intact, and fusions appear solid. 2. No acute abnormality of the cervical spine demonstrated.
--- NOTE | 2022-01-15 22:01 | CTR_ITS ---
PROCEDURE INFORMATION: Exam: CT Chest Without Contrast; Diagnostic Exam date and time: 01/15/2022 11:13 PM Age: 66 years old Clinical indication: Injury or trauma; Generalized; Blunt trauma (contusions or hematomas); Prior surgery; Surgery type: Gb. Colectomy. Colostomy. Urostomy. Patient HX: Patient found laying in kitchen floor on RT side. Reported patient left alone approximately 1.5 days. States struck head during fall but doesnt remember after. Patient very lethargic with labored breathing. Also C/O of RT side rib pain. History of colon cancer. TECHNIQUE: Imaging protocol: Diagnostic computed tomography of the chest without contrast. Radiation optimization: All CT scans at this facility use at least one of these dose optimization techniques: automated exposure control; mA and/or kV adjustment per patient size (includes targeted exams where dose is matched to clinical indication); or iterative reconstruction. COMPARISON: CR (CHEST, ) 01/15/2022 10:05 PM RADIATION DOSE METRICS: Total DLP (mGy-cm): 583.3 FINDINGS: Lungs: Right lung peripheral diffuse airspace opacification suggestive of a pulmonary contusion given history of trauma. Pleural spaces: Unremarkable. No pneumothorax. No pleural effusion. Heart: Cardiomegaly. Coronary artery atherosclerotic calcifications. Lymph nodes: Unremarkable. No enlarged lymph nodes. Vasculature: Unremarkable. No aortic aneurysm. Bones/joints: Right 3rd and 4th lateral possible rib fractures versus motion artifact. Soft tissues: Unremarkable. PROCEDURE INFORMATION: Exam: CT Abdomen And Pelvis Without Contrast Exam date and time: 01/15/2022 11:13 PM Age: 66 years old Clinical indication: Injury or trauma; Generalized; Blunt trauma (contusions or hematomas); Prior surgery; Surgery type: Gb. Colectomy. Colostomy. Urostomy. Patient HX: Patient found laying in kitchen floor on RT side. Reported patient left alone approximately 1.5 days. States struck head during fall but doesnt remember after. Patient very lethargic with labored breathing. Also C/O of RT side rib pain. History of colon cancer. TECHNIQUE: Imaging protocol: Computed tomography of the abdomen and pelvis without contrast. Radiation optimization: All CT scans at this facility use at least one of these dose optimization techniques: automated exposure control; mA and/or kV adjustment per patient size (includes targeted exams where dose is matched to clinical indication); or iterative reconstruction. COMPARISON: CR (CHEST, ) 01/15/2022 10:05 PM RADIATION DOSE METRICS: Total DLP (mGy-cm): 583.3 FINDINGS: Liver: Normal. No mass. Gallbladder and bile ducts: Cholecystectomy. Pancreas: Normal. No ductal dilation. Spleen: Normal. No splenomegaly. Adrenal glands: Normal. No mass. Kidneys and ureters: Left kidney staghorn type calculus without hydronephrosis. Bilateral solitary simple renal cysts, negative for follow-up advised. Right kidney nonobstructive calyceal stone. Moderate right hydronephrosis and hydroureter without obstructing lesion seen. Stomach and bowel: Apparent multiple loops of bowel in the deep pelvis with a right-sided ostomy and left upper abdominal ostomy. Appendix: No evidence of appendicitis. Intraperitoneal space: Unremarkable. No free air. No significant fluid collection. Vasculature: Unremarkable. No abdominal aortic aneurysm. Lymph nodes: Unremarkable. No enlarged lymph nodes. Urinary bladder: Urinary bladder may be absent, please correlate with history. Reproductive: Unremarkable as visualized. Bones/joints: Unremarkable. No acute fracture. Soft tissues: Unremarkable. CT/[place] [id number] IMPRESSION: 1. Right lung peripheral diffuse airspace opacification suggestive of a pulmonary contusion given history of trauma. 2. Cardiomegaly. 3. Coronary artery atherosclerotic calcifications. 4. Right 3rd and 4th lateral possible rib fractures versus motion artifact. IMPRESSION: 1. Negative for traumatic injury to the abdomen or pelvis. 2. Cholecystectomy. 3. Left kidney staghorn type calculus without hydronephrosis. 4. Bilateral solitary simple renal cysts, negative for follow-up advised. 5. Right kidney nonobstructive calyceal stone. 6. Moderate right hydronephrosis and hydroureter without obstructing lesion seen. 7. Apparent multiple loops of bowel in the deep pelvis with a right-sided ostomy and left upper abdominal ostomy. 8. Urinary bladder may be absent, please correlate with history. COMMENTS: Consistent with the [employer]'s Incidental Findings Committee white paper (J Am Sydni Radiol 2018): Any incidental renal lesion less than 1 cm or classified as too small to characterize, or any incidental cystic renal lesion characterized as simple-appearing, is likely benign. No follow-up imaging is recommended for these lesions per consensus recommendations based on imaging criteria.
--- NOTE | 2022-01-15 22:05 | W.ED.GENADLT ---
HPI - General Adult General: Chief complaint: General Medical Stated complaint: FALL Time Seen by Provider: 01/15/22 21:49 Source: patient Mode of arrival: ambulatory Limitations: no limitations History of Present Illness: 66-year-old female is here with EMS for a fall. Patient has had a history of cancer in the past she has had a colectomy she has indwelling Shin patient is extremely frail appearing here and cachectic patient is unsure when she had fell no was seen her in 2 days she thinks she may have fell yesterday has been laying in the floor since then. Patient does appear dehydrated. She does have a headache along with chest and abdominal pain. Associated symptoms: Reports chest pain, headache(s) and malaise; Deny dyspnea, nausea, rash or vomiting Review of Systems Const: Reports: fatigue and malaise; Denies: fever(s), chills, body aches or change in appetite Eyes: Denies: blurry vision or eye discomfort ENMT: Denies: throat pain or dental pain Card: Reports: chest pain Resp: Denies: dyspnea GI: Reports: abdominal pain; Denies: nausea, vomiting or diarrhea : Denies: dysuria Musc: Reports: neck pain; Denies: back pain Skin/Breast: Denies: rash Neuro: Reports: headache(s) and weakness in extremities Psych: Denies: depression Bony/Lymph: Denies: easy bruising All/Imm: Denies: urticaria PFSH ED PFSH: Social History Smoking and tobacco status: never smoked Alcohol intake: never Female Reproductive History: Spontaneous abortions: No Physical Exam Const: COMMON NORMALS: patient oriented x3 GENERAL APPEARANCE: ill appearing and frail appearing HENMT: COMMON NORMALS: normocephalic and atraumatic HEAD & SCALP: normocephalic and atraumatic Eye: COMMON NORMALS: Equal, round and reactive pupils present, EOMs intact bilaterally and conjunctivae normal CONJUNCTIVA: Yes conjunctivae normal PUPIL: Yes Equal, round and reactive pupils present Neck/C-Spine: COMMON NORMALS: full ROM and supple Chest: OTHER: tenderness over right chest wall Resp: COMMON NORMALS: normal respiratory effort, No retractions, No use of accessory muscles and clear to auscultation bilaterally AUSCULTATION: clear to auscultation bilaterally Cardio: COMMON NORMALS: regular rate, regular rhythm and No murmurs present (Cardio) RATE: regular rate RHYTHM: regular rhythm GI: COMMON NORMALS: Soft to palpation and no masses PALPATION: Yes Soft to palpation OTHER: tenderness over right side of abdomen Extremity: COMMON NORMALS: normal to inspection and full ROM Neuro: COMMON NORMALS: patient oriented x3, moves all extremities and no focal motor deficits Psych: COMMON NORMALS: mental status grossly normal, Normal thought process present and cooperative THOUGHT PROCESS: Normal thought process present Skin: COMMON NORMALS: no rashes or lesions noted and no wounds GENERAL SKIN EXAM: no rashes or lesions noted Course Vital Signs: Vital signs: Vital Signs Pulse Rate 74 01/16/22 00:50 Respiratory Rate 10 L 01/16/22 00:50 Blood Pressure 121/71 01/16/22 00:50 Pulse Oximetry 95 01/16/22 00:50 Oxygen Delivery Me thod 01/16/22 00:50 MDM - General Adult Medical Decision Making Patient presents here after a fall likely a long downtime patient is in rhabdomyolysis with elevated CK she is also severely acidotic with acute kidney injury I spoken to family at length patient is DNR/DNI they do not want any aggressive treatment at this time including dialysis we will continue fluids bicarb and antibiotics did discuss comfort care family wants to see how patient does overnight I spoke to hospitalist will admit to ICU. Lab Data : 01/15/22 22:03 01/15/22 22:37 Radiology Impressions Cervical Spine CT 01/15/22 21:57 IMPRESSION: 1. Status post anterior interbody fusion C5 through C7. Visualized hardware appears intact, and fusions appear solid. 2. No acute abnormality of the cervical spine demonstrated. Chest X-Ray 01/15/22 21:57 IMPRESSION: 1. Dense opacification with surrounding ground-glass opacity in the lateral right upper and middle lobes. Findings are mostly suspicious for a right-sided pneumonia. Possible pulmonary contusion cannot be completely ruled out given recent trauma history. Recommend clinical correlation. CT scan of the chest may be obtained for further evaluation if it will change clinical management. Also recommend followup chest imaging after treatment to insure resolution of these findings. 2. No acute fracture. 3. Incidental/nonacute findings are listed in the report. COMMENTS: Urgent results were discussed with CLEVE Knott on 01/15/2022 at 11:[address] 01/15/22 21:57 IMPRESSION: No acute intracranial abnormality demonstrated. Chest/Abdomen/Pelvis CT 01/15/22 22:01 IMPRESSION: 1. Right lung peripheral diffuse airspace opacification suggestive of a pulmonary contusion given history of trauma. 2. Cardiomegaly. 3. Coronary artery atherosclerotic calcifications. 4. Right 3rd and 4th lateral possible rib fractures versus motion artifact. IMPRESSION: 1. Negative for traumatic injury to the abdomen or pelvis. 2. Cholecystectomy. 3. Left kidney staghorn type calculus without hydronephrosis. 4. Bilateral solitary simple renal cysts, negative for follow-up advised. 5. Right kidney nonobstructive calyceal stone. 6. Moderate right hydronephrosis and hydroureter without obstructing lesion seen. 7. Apparent multiple loops of bowel in the deep pelvis with a right-sided ostomy and left upper abdominal ostomy. 8. Urinary bladder may be absent, please correlate with history. COMMENTS: Consistent with the [employer]'s Incidental Findings Committee white paper (J Am Sydni Radiol 2018): Any incidental renal lesion less than 1 cm or classified as too small to characterize, or any incidental cystic renal lesion characterized as simple-appearing, is likely benign. No follow-up imaging is recommended for these lesions per consensus recommendations based on imaging criteria. Laboratory Results WBC 27.3 10^3/uL (4.0-10.0) H 01/15/22 22:03 RBC 4.51 10^6/uL (4.1-5.3) 01/15/22 22:03 Hgb 13.3 g/dL (11.5-15.3) 01/15/22 22:03 Hct 44.4 % (37.0-47.0) 01/15/22 22:03 MCV 98.4 fl (81-99) 01/15/22 22:03 MCH 29.5 pg (28.0-34.0) 01/15/22 22:03 MCHC 30.0 g/dL (30.0-36.0) 01/15/22 22:03 RDW 17.4 % (12.1-15.1) H 10/03/22 22:03 Plt Count 247 10^3/cmm (130-400) 01/15/22 22:03 MPV 10.8 fL (7.4-10.4) H 01/15/22 22:03 Neut % (Auto) 90.3 % 01/15/22 22:03 Lymph % (Auto) 4.9 % 01/15/22 22: [place] % (Auto) 2.4 % 01/15/22 22:03 Eos % (Auto) 0.0 % 01/15/22 22: Baso % (Auto) 0.3 % 01/15/22 22:03 Neut # (Auto) 24.69 10^3/uL (1.8-7.7) H 01/15/22 22: Lymph # (Auto) 1.3 10^3/uL (0.8-4.8) 01/15/22 22: [place] # (Auto) 0.7 10^3/uL (0.2-0.9) 01/15/22 22:03 Eos # (Auto) 0.0 10^3/uL (0.0-0.8) 01/15/22 22:03 Baso # (Auto) 0.1 10^3/uL (0.0-0.1) 01/15/22 22: Nucleated RBC % (auto) 2.2 % 01/15/22: Nucleated RBCs # 0.6 /100WBC 01/15/22 22: PT 15.40 SECONDS (12.1-14.9) H 01/15/22: INR 1.19 (0.8-1.2) 01/15/22: Specimen Type Arterial 01/15/22: Sample Site Brachial, left 01/15/22: ABG pH 6.75 (7.35-7.45) L* 01/15/22: ABG pCO2 19.1 mmHg (35-45) L* 01/15/22: ABG pO2 110.0 mmHg (80.0-100.0) H 01/15/22: ABG HCO3 2.6 mmol/L (22-26) L 01/15/22: ABG Base Excess -32.1 mmol/L (-2.0-2.0) L 01/15/22 23:21 Blane Test Pos 01/15/22 23:21 Hematocrit 40.6 % (37-47) 01/15/22 23:21 O2 Delivery Device Room air 01/15/22 23:21 FiO2 21.0 % 01/15/22 23:21 Public Welfare Worker ID Aracelis 01/15/22 23:21 Sodium 136 mmol/L (136-145) 01/15/22 22:37 Potassium 4.5 mmol/L (3.5-5.1) 01/15/22 22:37 Chloride 114 mmol/L (98-107) H 01/15/22 22:37 Carbon Dioxide 2 mmol/L (22-29) L* 01/15/22 22:37 Anion Gap 24.5 (5-19) H 01/15/22 22:37 BUN 60 mg/dL (8-23) H 01/15/22 22:37 Creatinine 4.2 mg/dL (0.5-0.9) H 01/15/22 22:37 GFR Calculation 10.6 mL/min (90-130) L 01/15/22 22:37 Glucose 173 mg/dL (65-115) H 01/15/22 22:37 Calculated Osmolality 303 mOsm/kg (285-295) H 01/15/22 22:37 Lactate 1.5 mmol/L (0.5-2.2) 01/15/22 22:03 Calcium 8.1 mg/dL (8.5-10.5) L 01/15/22 22:37 Magnesium 2.5 mg/dL (1.7-2.3) H 01/15/22 22:37 Total Bilirubin 0.3 mg/dL (0.15-1.2) 01/15/22 22:37 AST 154 U/L (0-32) H 01/15/22 22:37 ALT 48 U/L (0-33) H 01/15/22 22:37 Alkaline Phosphatase 289 U/L (35-105) H 01/15/22 22:37 Creatine Kinase 7801 U/L (26-192) H* 01/15/22 22:37 Troponin T Baseline 118 ng/L (0-10) H* 01/15/22 22:37 Total Protein 6.2 g/dL (6.6-8.7) L 01/15/22 22:37 Albumin 3.4 g/dL (3.5-5.2) L 01/15/22 22:37 Globulin 2.8 g/dL (1.3-4.6) 01/15/22 22:37 EKG Data EKG 1: I personally reviewed and interpreted this EKG as follows: EKG interpretation date: 01/15/22 EKG interpretation time: 22:36 Interpretation: nsr hr [address] or t wave abnormalities qrs 94 qtc 494 Computer generated interpretation: Cervical Spine CT 01/15/22 21:57 IMPRESSION: 1. Status post anterior interbody fusion C5 through C7. Visualized hardware appears intact, and fusions appear solid. 2. No acute abnormality of the cervical spine demonstrated. Chest X-Ray 01/15/22 21:57 IMPRESSION: 1. Dense opacification with surrounding ground-glass opacity in the lateral right upper and middle lobes. Findings are mostly suspicious for a right-sided pneumonia. Possible pulmonary contusion cannot be completely ruled out given recent trauma history. Recommend clinical correlation. CT scan of the chest may be obtained for further evaluation if it will change clinical management. Also recommend followup chest imaging after treatment to insure resolution of these findings. 2. No acute fracture. 3. Incidental/nonacute findings are listed in the report. COMMENTS: Urgent results were discussed with CLEVE Knott on 01/15/2022 at 11:[address] 01/15/22 21:57 IMPRESSION: No acute intracranial abnormality demonstrated. Chest/Abdomen/Pelvis CT 01/15/22 22:01 IMPRESSION: 1. Right lung peripheral diffuse airspace opacification suggestive of a pulmonary contusion given history of trauma. 2. Cardiomegaly. 3. Coronary artery atherosclerotic calcifications. 4. Right 3rd and 4th lateral possible rib fractures versus motion artifact. IMPRESSION: 1. Negative for traumatic injury to the abdomen or pelvis. 2. Cholecystectomy. 3. Left kidney staghorn type calculus without hydronephrosis. 4. Bilateral solitary simple renal cysts, negative for follow-up advised. 5. Right kidney nonobstructive calyceal stone. 6. Moderate right hydronephrosis and hydroureter without obstructing lesion seen. 7. Apparent multiple loops of bowel in the deep pelvis with a right-sided ostomy and left upper abdominal ostomy. 8. Urinary bladder may be absent, please correlate with history. COMMENTS: Consistent with the [employer]'s Incidental Findings Committee white paper (J Am Sydni Radiol 2018): Any incidental renal lesion less than 1 cm or classified as too small to characterize, or any incidental cystic renal lesion characterized as simple-appearing, is likely benign. No follow-up imaging is recommended for these lesions per consensus recommendations based on imaging criteria. Critical Care Time Critical Care Time: Critical Care Time: Yes Total Critical Care Time: 45 Attestation: The high probability of a clinically significant, sudden or life threatening deterioration of the patient's endocrine system(s) required my full and direct attention, intervention and personal management. The critical care time is as shown. This time is in addition to time spent performing any reported procedures but includes the following: [x] Data and vital sign review and interpretation [x] Patient assessment, examination and intervention [x] Documentation [x] Medication orders and management Discharge Plan Discharge Patient Disposition: Admitted As Inpatient Admit Provider: Caitlyn Parry Clinical Impression: Fall, Rhabdomyolysis, Acidosis, Pneumonia Condition: Stable Coding Level of Care Code ED Tensioning 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 for Chg Fwd Exam Comprehensive
[2022-01-15 22:16] LABS: Basophils # 0.1 10^3/uL (0.0-0.1); Basophils % 0.3 %; Hematocrit 44.4 % (37.0-47.0); Hemoglobin 13.3 g/dL (11.5-15.3); Lymphocytes # 1.3 10^3/uL (0.8-4.8); Lymphocytes % 4.9 %; Mean Corpuscular Hemoglobin 29.5 pg (28.0-34.0); Mean Corpuscular Volume 98.4 fl (81-99); Mean Platelet Volume 10.8 fL (7.4-10.4); Monocytes # 0.7 10^3/uL (0.2-0.9); Monocytes % 2.4 %; Neutrophils # 24.69 10^3/uL (1.8-7.7); Neutrophils % 90.3 %; Nucleated Red Blood Cells # 0.6 /100WBC; Nucleated Red Blood Cells % 2.2 %; Platelet Count 247 10^3/cmm (130-400); Red Blood Count 4.51 10^6/uL (4.1-5.3); Red Cell Distribution Width 17.4 % (12.1-15.1); White Blood Count 27.3 10^3/uL (4.0-10.0)
--- NOTE | 2022-01-15 22:32 | PC.NURSE ---
patient presented with colostomy and urostomy in place; patient had taped up both to skin, all the tape was removed as the colostomy was draining around the appliance and on to the urostomy area; the urostomy is draining to a caballero bag and is cloudy and foul. patient has skin breakdown to the right hip area, unstagable at this time; patient has skin breakdown to the abdomen where the tape was holding the colostomy to. patient is cachetic in appearance.
--- NOTE | 2022-01-15 22:36 | ECG_ITS ---
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 Measurements Intervals [place] Rate: 71 P: 73 NE: 152 QRS: -11 QRSD: 94 T: 77 QT: 472 QTc: 513 Interpretive Statements SINUS RHYTHM POSSIBLE LEFT ATRIAL ENLARGEMENT [-0.1mV P-WAVE IN V1/V2] PROLONGED QT INTERVAL Compared to ECG 06/04/2020 16:32:20 Prolonged QT interval now present Electronically Signed On 01-15-2022 22:42:37 CDT by Jamie Chew M.D. [email or web address] adult care unitUnyqemercy health [facility].[employer]/store/[id number]
[2022-01-15 22:43] LABS: INR 1.19 (0.8-1.2)
[2022-01-15 22:56] LABS: Magnesium 2.5 mg/dL (1.7-2.3)
[2022-01-15 22:57] LABS: Alanine Aminotransferase 48 U/L (0-33); Albumin Level 3.4 g/dL (3.5-5.2); Alkaline Phosphatase 289 U/L (35-105); Blood Urea Nitrogen 60 mg/dL (8-23); Calcium 8.1 mg/dL (8.5-10.5); Chloride 114 mmol/L (98-107); Creatinine Clr Calc Pharmacy 8.3765; Globulin 2.8 g/dL (1.3-4.6); Glomerular Filtration Rate 10.6 mL/min (90-130); Glucose 173 mg/dL (65-115); Osmolality Calculated 303 mOsm/kg (285-295); Sodium 136 mmol/L (136-145); Total Bilirubin 0.3 mg/dL (0.15-1.2); Total Protein 6.2 g/dL (6.6-8.7)
[2022-01-15 23:00] VITALS: RESP 20; O2SAT 99
[2022-01-15] MEDS: HYDROmorphone 1 mg/mL INJ 1 mL 0.5 MG IVP (23:00)
[2022-01-15] MEDS: ondansetron 2 mg/ML SDV 2 mL 4 MG IVP (23:01)
[2022-01-15] MEDS: lactated ringers 1,000 ML 999 ML IV ×2 (23:01→23:48)
[2022-01-15 23:02] VITALS: BP 154/79; PULSE 80; RESP 25; O2SAT 99
[2022-01-15 23:05] LABS: Anion Gap 24.5 (5-19)
[2022-01-15 23:06] LABS: Aspartate Amino Transferase 154 U/L (0-32); Potassium 4.5 mmol/L (3.5-5.1)
[2022-01-15 23:11] LABS: Carbon Dioxide 2 mmol/L (22-29); Troponin(5th) Baseline 118 ng/L (0-10)
[2022-01-15 23:12] LABS: Creatine Phosphokinase 7801 U/L (26-192)
[2022-01-15 23:30] LABS: Lactate (Lactic Acid level) 1.5 mmol/L (0.5-2.2)
[2022-01-15 23:33] LABS: Arterial Blood Gas Hematocrit 40.6 % (37-47); Base Excess ABG -32.1 mmol/L (-2.0-2.0); Blood Gas Allen Test Pos; Blood Gas Operator Identificat MONRO; Blood Gas Sample Site Brachial, left; Blood Gas Sample Type Arterial; HCO3 ABG 2.6 mmol/L (22-26); Oxygen Device ROOM AIR
[2022-01-15 23:34] LABS: ABG PCO2 19.1 mmHg (35-45); ABG PH Result 6.75 (7.35-7.45)
[2022-01-15] MEDS: sodium bicarbonate 8.4% 1 mEq/mL 50mL Syr 50 MEQ IVP (23:48)
[2022-01-15 23:49] VITALS: BP 173/81; PULSE 78; RESP 18; O2SAT 100
[2022-01-15] MEDS: vancomycin 1,000 MG in sodium chloride 0.9% 250 ML 250 MG IV (23:50)
[2022-01-15] MEDS: piperacillin-tazobactam 3.375 GM in sodium chloride 0.9% (plus) 50 ML IV (23:58)
[2022-01-16] VITALS (91 sets, daily range): BP systolic 95–142; BP diastolic 44–95; PULSE 60–120; RESP 7–28; TEMP 33.4–37.4; O2SAT 95–100; BMI 15.0
--- NOTE | 2022-01-16 00:35 | USCV_ITS ---
Deborah Inman Age: 66 Gender: F : 1955 Exam Date: 01/16/2022 02:29 Ordering Phys: Caitlyn Parry MD Technologist: ALVARO Exam Location: [facility] [place] Indication: NSTEMI BP: 141 / 79 HR: 78 Rhythm: Sinus Technical Quality: Adequate MEASUREMENTS (Male / Female) Normal Values 2D ECHO LV Diastolic Diameter PLAX 3.5 cm 4.2 - 5.9 / 3.9 - 5.3 cm LV Systolic Diameter PLAX 2.5 cm IVS Diastolic Thickness 0.9 cm 0.6 - 1.0 / 0.6 - 0.9 cm IVS Systolic Thickness 1.5 cm LVPW Diastolic Thickness 1.0 cm 0.6 - 1.0 / 0.6 - 0.9 cm LVPW Systolic Thickness 1.3 cm LVOT Diameter 2.0 cm LV Ejection Fraction 2D Teich 56.4 % LV Ejection Fraction MOD 2C 71.1 % LV Ejection Fraction 2C AL 71.2 % LA Diameter 3.0 cm LA Width 3.5 cm LA Height 3.4 cm RA Width 2.8 cm RA Height 3.3 cm Aorta at Sinotubular Diameter 3.3 cm IVC Diameter 1.2 cm M-MODE Aortic Annulus Diameter 2.4 cm LA Ao Ratio MM 1.3 MV E Point Septal Separation 0.4 cm DOPPLER AV Peak Velocity 115.0 cm/s LVOT Peak Velocity 96.0 cm/s AV Area Cont Eq vti 2.6 cm squared AV Area Cont Eq pk 2.7 cm squared MV Area PHT 3.3 cm squared Mitral E to A Ratio 0.8 MV E' Velocity 43.5 cm/s Mitral E to MV E' Ratio 9.9 Mitral E to LV E' Lateral Ratio 7.4 Mitral E to LV E' Septal Ratio 14.9 TR Peak Velocity 237.3 cm/s TR Peak Gradient 22.5 mmHg TV Peak E Velocity 48.0 cm/s Right Atrial Pressure 5.0 mmHg Pulmonary Artery Systolic Pressu 27.5 mmHg PV Peak Velocity 98.0 cm/s RV Acceleration Time 0.1 s RV Ejection Time 0.4 s RV AcT/ET 0.3 FINDINGS Left Ventricle Normal left ventricular size, systolic function and wall thickness, with no regional wall motion abnormalities. Left ventricular ejection fraction is estimated at 60 %. Normal diastolic function. Right Ventricle Normal right ventricular size and systolic function. Right ventricular systolic pressure 22 mmHg. Right Atrium Normal right atrial size. Left Atrium Normal left atrial size. Mitral Valve Thickened mitral valve. No mitral valve stenosis. Trace mitral valve regurgitation. Aortic Valve Structurally normal trileaflet aortic valve. No aortic valve stenosis. No aortic valve regurgitation. Tricuspid Valve Structurally normal tricuspid valve. Trace to mild tricuspid valve regurgitation. Pulmonic Valve Pulmonic valve not well visualized. No pulmonary valve stenosis. Pericardium No pericardial effusion. Aorta Normal size aortic root and proximal ascending aorta. IVC Normal sized inferior vena cava. CONCLUSIONS 1. Normal left ventricular size, systolic function and wall thickness, with no regional wall motion abnormalities. Left ventricular ejection fraction is estimated at 60 %. Normal diastolic function. 2. Normal right ventricular size and systolic function. 3. Trace to mild tricuspid valve regurgitation. 4. No prior similar studies to compare. Sherri Baird MD (Electronically Signed) Final Date: 16 January 2022 17:12 S
--- NOTE | 2022-01-16 00:38 | ECG_ITS ---
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 Measurements Intervals [place] Rate: 69 P: 70 ND: 175 QRS: 12 QRSD: 88 T: 74 QT: 390 QTc: 421 Interpretive Statements SINUS RHYTHM POSSIBLE LEFT ATRIAL ENLARGEMENT [-0.1mV P-WAVE IN V1/V2] NONSPECIFIC T-WAVE ABNORMALITY Compared to ECG 01/15/2022 22:36:15 T-wave abnormality now present Prolonged QT interval no longer present Electronically Signed On 01-16-2022 13:55:55 CDT by Sherri Baird M.D. [email or web address] [facility]ubatorst. [facility].[employer]/store/[id number]
--- NOTE | 2022-01-16 01:00 | P.HP_ITS ---
Providers/Chief Complaint Admitting Physician: Caitlyn Parry MD Chief Complaint: FALL History of Present Illness Deborah Inman is a 66 year old female with PMH vulvar cancer s/p ileostomy and colostomy, last surgery 2019, no h/o chemoradiation , known to be cancer free as of 2019, chronic pain brought to the ER today after being found down for an unknown amount of time by her sister. Patient was last seen normal on Saturday (today is Saturday). She was not responding to phone calls, so her sister checked on her and found her on the floor, in altered mental status, lethargic with labored breathing. Brought to ER where she is noted to have severe metabolic acidosis with pH 6.2, bicarb of 2. CT CAP with rib fracture, pulmonary contusion and possible pneumonia. Noted staghorn calculus left kidney, right hydronephrosis with no stones. LORRI cr 4.2. CT head without acute changes. She has a h/o chronic pain and recently visited with her PCP to increase pain medication, however this was declined- it appears she may have been getting opiates from multiple sources- was referred to pain management. Sister denies any suicidal ideation. 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 No h/o alcohol consumption. Review of Systems General: Reports: ROS unobtainable due to medical condition Medications/Allergies Home Medications Medication Instructions Recorded Confirmed Last Taken Type tizanidine 4 mg tablet 4 mg PO Q8H PRN Pain #90 tabs 10/11/21 01/10/22 Unknown Rx oxycodone 20 mg tablet,crush 20 mg PO TID 30 days #90 tabs 01/10/22 01/10/22 Unknown Rx resistant,extended release 12 hr (OxyContin) Allergies Allergy/AdvReac Type Severity Reaction Status Date / Time amitriptyline Allergy ADR-Halluci Verified 01/16/22 04:21 nating gabapentin Allergy ADR-Halluci Verified 01/16/22 04:21 nating haloperidol [From Haldol] Allergy ADR-Confusi Verified 01/16/22 04:21 on morphine Allergy Unconscious Verified 01/16/22 04:21 tiagabine [From Gabitril] Allergy ADR-Agitate Verified 01/16/22 04:21 d PFSH Acute PFSH: Medical History (Updated 01/16/22 @ 03:24 by Caitlyn Parry MD) Colostomy in place Surgical History (Updated 01/16/22 @ 03:18 by Caitlyn Parry MD) History of urostomy Social History Smoking and tobacco status: never smoked Alcohol intake: never Female Reproductive History: Spontaneous abortions: No Vitals/I&O/Wt Last Vital Signs Pulse 74 01/16/22 00:50 Resp 10 L 01/16/22 00:50 BP 121/71 01/16/22 00:50 Pulse Ox 95 01/16/22 00:50 O2 Del Method 01/16/22 00:50 01/15/22 01/15/22 01/16/22 14:59 22:59 06:59 Intake Total 1050 / 1050 Balance 1050 / 1050 Weight last 48 hrs Weight 40.823 kg Physical Exam Narrative: General: Lethargic, states name as Leanna Inman after multiple prompts, unable to participate in conversation, speaks 1-2 words. oriented x 1. Grossly dehydrated. HEENT: PERRLA, pupils bilaterally equal and reactive. Dry conjunctiva Chest: Normal vesicular breath sounds, no added sounds, equal good air entry bilaterally CVS: S1-S2 regular, no murmurs, no tachycardia, no gallops, no rubs Abdomen: Soft, nontender, ileostomy and colostomy in place Neuro: Lethargic, moves both upper etremities in bed, poor tone B/L LE. Data : 01/16/22 03:47 01/16/22 03:47 Other Labs: Radiology Impressions Cervical Spine CT 01/15/22 21:57 IMPRESSION: 1. Status post anterior interbody fusion C5 through C7. Visualized hardware appears intact, and fusions appear solid. 2. No acute abnormality of the cervical spine demonstrated. Chest X-Ray 01/15/22 21:57 IMPRESSION: 1. Dense opacification with surrounding ground-glass opacity in the lateral right upper and middle lobes. Findings are mostly suspicious for a right-sided pneumonia. Possible pulmonary contusion cannot be completely ruled out given recent trauma history. Recommend clinical correlation. CT scan of the chest may be obtained for further evaluation if it will change clinical management. Also recommend followup chest imaging after treatment to insure resolution of these findings. 2. No acute fracture. 3. Incidental/nonacute findings are listed in the report. COMMENTS: Urgent results were discussed with CLEVE Knott on 01/15/2022 at 11:[address] 01/15/22 21:57 IMPRESSION: No acute intracranial abnormality demonstrated. Chest/Abdomen/Pelvis CT 01/15/22 22:01 IMPRESSION: 1. Right lung peripheral diffuse airspace opacification suggestive of a pulmonary contusion given history of trauma. 2. Cardiomegaly. 3. Coronary artery atherosclerotic calcifications. 4. Right 3rd and 4th lateral possible rib fractures versus motion artifact. IMPRESSION: 1. Negative for traumatic injury to the abdomen or pelvis. 2. Cholecystectomy. 3. Left kidney staghorn type calculus without hydronephrosis. 4. Bilateral solitary simple renal cysts, negative for follow-up advised. 5. Right kidney nonobstructive calyceal stone. 6. Moderate right hydronephrosis and hydroureter without obstructing lesion seen. 7. Apparent multiple loops of bowel in the deep pelvis with a right-sided ostomy and left upper abdominal ostomy. 8. Urinary bladder may be absent, please correlate with history. COMMENTS: Consistent with the [place] [employer]'s Incidental Findings Committee white paper (J Am Sydni Radiol 2018): Any incidental renal lesion less than 1 cm or classified as too small to characterize, or any incidental cystic renal lesion characterized as simple-appearing, is likely benign. No follow-up imaging is recommended for these lesions per consensus recommendations based on imaging criteria. Laboratory Results WBC 27.3 10^3/uL (4.0-10.0) H 01/15/22 22:03 RBC 4.51 10^6/uL (4.1-5.3) 01/15/22 22:03 Hgb 13.3 g/dL (11.5-15.3) 01/15/22 22:03 Hct 44.4 % (37.0-47.0) 01/15/22 22:03 MCV 98.4 fl (81-99) 01/15/22 22:03 MCH 29.5 pg (28.0-34.0) 01/15/22 22:03 MCHC 30.0 g/dL (30.0-36.0) 01/15/22 22: RDW 17.4 % (12.1-15.1) H 01/15/22 22:03 Plt Count 247 10^3/cmm (130-400) 01/15/22 22:03 MPV 10.8 fL (7.4-10.4) H 01/15/22 22:03 Neut % (Auto) 90.3 % 01/15/22 22: Lymph % (Auto) 4.9 % 01/15/22 22: [place] % (Auto) 2.4 % 01/15/22 22: Eos % (Auto) 0.0 % 01/15/22: Baso % (Auto) 0.3 % 01/15/22: Neut # (Auto) 24.69 10^3/uL (1.8-7.7) H 01/15/22 22: Lymph # (Auto) 1.3 10^3/uL (0.8-4.8) 01/15/22 22:03 [place] # (Auto) 0.7 10^3/uL (0.2-0.9) 01/15/22 22: Eos # (Auto) 0.0 10^3/uL (0.0-0.8) 01/15/22 22: Baso # (Auto) 0.1 10^3/uL (0.0-0.1) 01/15/22 22: Nucleated RBC % (auto) 2.2 % 01/15/22: Nucleated RBCs # 0.6 /100WBC 01/15/22 22: PT 15.40 SECONDS (12.1-14.9) H 01/15/22: INR 1.19 (0.8-1.2) 01/15/22: Specimen Type Arterial 01/15/22: Sample Site Brachial, left 01/15/22: ABG pH 6.75 (7.35-7.45) L* 01/15/22: ABG pCO2 19.1 mmHg (35-45) L* 01/15/22: ABG pO2 110.0 mmHg (80.0-100.0) H 01/15/22 23:21 ABG HCO3 2.6 mmol/L (22-26) L 01/15/22 23:21 ABG Base Excess -32.1 mmol/L (-2.0-2.0) L 01/15/22 23:21 Blane Test Pos 01/15/22 23:21 Hematocrit 40.6 % (37-47) 01/15/22 23:21 O2 Delivery Device Room air 01/15/22 23:21 FiO2 21.0 % 01/15/22 23:21 Vine Fruit Farming Supervisor ID [place] 01/15/22 23:21 Sodium 136 mmol/L (136-145) 01/15/22 22:37 Potassium 4.5 mmol/L (3.5-5.1) 01/15/22 22:37 Chloride 114 mmol/L (98-107) H 01/15/22 22:37 Carbon Dioxide 2 mmol/L (22-29) L* 01/15/22 22:37 Anion Gap 24.5 (5-19) H 01/15/22 22:37 BUN 60 mg/dL (8-23) H 01/15/22 22:37 Creatinine 4.2 mg/dL (0.5-0.9) H 01/15/22 22:37 GFR Calculation 10.6 mL/min (90-130) L 01/15/22 22:37 Glucose 173 mg/dL (65-115) H 01/15/22 22:37 Calculated Osmolality 303 mOsm/kg (285-295) H 01/15/22 22:37 Lactate 1.5 mmol/L (0.5-2.2) 01/15/22 22:03 Calcium 8.1 mg/dL (8.5-10.5) L 01/15/22 22:37 Magnesium 2.5 mg/dL (1.7-2.3) H 01/15/22 22:37 Total Bilirubin 0.3 mg/dL (0.15-1.2) 01/15/22 22:37 AST 154 U/L (0-32) H 01/15/22 22:37 ALT 48 U/L (0-33) H 01/15/22 22:37 Alkaline Phosphatase 289 U/L (35-105) H 01/15/22 22:37 Creatine Kinase 7801 U/L (26-192) H* 01/15/22 22:37 Troponin T Baseline 118 ng/L (0-10) H* 01/15/22 22:37 Troponin T 120 Minute 107.3 ng/L (0-10) H 01/16/22 01:24 Delta Troponin T -10.7 ABS# (0-10) L 01/16/22 01:24 Total Protein 6.2 g/dL (6.6-8.7) L 01/15/22 22:37 Albumin 3.4 g/dL (3.5-5.2) L 01/15/22 22:37 Globulin 2.8 g/dL (1.3-4.6) 01/15/22 22:37 TSH 0.80 uIU/mL (0.27-4.20) 01/16/22 01:24 Urine Color Leonie (Yellow) 01/16/22 01:08 Urine Appearance Cloudy (CLEAR) 01/16/22 01:08 Urine pH 7.0 (5-7) 01/16/22 01:08 Ur Specific [place] 1.020 (1.005-1.030) 01/16/22 01:08 Urine Protein 2+ (Negative) A 01/16/22 01:08 Urine Glucose (UA) Negative (Normal) 01/16/22 01:08 Urine Ketones Negative (Negative) 01/16/22 01:08 Urine Blood Large (Negative) A 01/16/22 01:08 Urine Nitrate Negative 01/16/22 01:08 Urine Bilirubin Negative (Negative) 01/16/22 01:08 Urine Urobilinogen 0.2 mg/dL (Negative) 01/16/22 01:08 Ur Leukocyte Esterase 3+ (Negative) A 01/16/22 01:08 Urine RBC Too numerous to cnt /hpf (0-2) H 01/16/22 01:08 Urine WBC Too numerous to cnt /hpf (0-5) H 01/16/22 01:08 Ur Squamous Epith Cells 0-4 /hpf (0-5) H 01/16/22 01:08 Amorphous Sediment Not Reportable 01/16/22 01:08 Urine Bacteria 3+ /hpf (NONE) H 01/16/22 01:08 Salicylates < 0.3 mg/dL (3-10) L 01/16/22 01:24 Urine Opiates Screen Negative ng/mL (Negative) 01/16/22 01:08 Acetaminophen < 5.0 ug/mL (10-30) L 01/16/22 01:24 Ur Barbiturates Screen Negative ng/mL (Negative) 01/16/22 01:08 Ur Phencyclidine Scrn Negative ng/mL (Negative) 01/16/22 01:08 Ur Amphetamines Screen Negative ng/mL (Negative) 01/16/22 01:08 U Benzodiazepines Scrn Negative ng/mL (Negative) 01/16/22 01:08 Urine Cocaine Screen Negative ng/mL (Negative) 01/16/22 01:08 U Marijuana (THC) Screen Negative ng/mL (Negative) 01/16/22 01:08 Ethyl Alcohol < 10 mg/dL (0-10) 01/16/22 01:24 SARS-CoV-2 Ag (Rapid) Negative (Negative) 01/16/22 01:08 Micro: Microbiology 01/15/22 23:35 Blood Culture - Preliminary Blood SPECIMEN COLLECTED 01/15/22 23:35 Blood Culture - Preliminary Blood SPECIMEN COLLECTED A&P Assessment and plan (1) Chronic pain: (2) Rhabdomyolysis: (3) Pneumonia: (4) Sepsis: (5) Metabolic acidosis: (6) Hydronephrosis: (7) LORRI (acute kidney injury): (8) Rib fracture: Plan 66F with PMH vulvar ca, not currently known to be active, p/w altered mental status, sepsis, HAGMA # Sepsis as evidenced by leukocytosis, metabolic acidosis, signs of organ dysfunction incl LORRI, metabolic encephalopathy Source may be related to pneumonia vs complicated UTI Empiric treatment with ZOsyn and vancomycin Recieved sepsis bolus in ER, cotninue NS @ 100 cc/hr # severe metabolic acidosis Unclear etilology at this time May be related to sepsis, acute renal failure start bicarb infusion check ABG, CMP in 8 hrs check urine drug screen, blood alcohol and methylalcohol level, salicylate, acetaminopehn level # AMS, likely metabolic encephalopathy CT head normal Check TSH Check drug screen. Patient with h/o opiate use with recently asking for increased doses of opiates. Does not have pin point pupils at this time. Would prefer to try Narcan and assess if encephalopathy improves, however patient's sister currently at bedside does not wish to reverse opiate effect and precipitate pain. This is in keeping with her overall GOC. # Rib fracture : likely from unwitnessed fall with underlyg pulmonary contusion and secondary pneumonia. Abx as above. Spirometry once mental status improved # LORRI: May be related to dehydration, ATN from sepsis, obstructive uropathy from renal stones, rhabdomyolysis left side staghorn calculi, right hydronephrosis, no obvious stone noted on right monitor urine output in stoma may need urology assessment if fails to improve # Rhabdoyolysis : IV hydration as above # Elevated troponins : Baseline troponin at 118, pending 2 hr and [address]-T wave changes on EKG. May be NSTEMI vs type 2 MD. check echocardiogram. Start ASA rectally. will add a/c if significant delta trend or echo with RWMA. CODE status: DNR/DNI: Patient's son in next of kin. There has been discussion between ER physician and patient's son over phone and between me and patient's sister at bedside (I am unable to reach the son at this time). Patient has had poor health dating back many years and has chronic pain. Her GOC at this time would be to try all medical management with IVF, abx, etc, however not to proceed with CPR, intubation, mechanical ventilation or hemodialysis. DVT ppx: lovenox 40 s/c GI ppx: protonix 40mg ivP daily Attestations Medical Necessity Statement*: greater than 2 midnight admission will be needed for above defined care Critical Care Time: The high probability of a clinically significant, sudden or life threatening deterioration of the patient's [renal, pulmonary,cardiac, neurology] system(s) required my full and direct attention, intervention and personal management. The critical care time is as shown. This time is in addition to time spent performing any reported procedures but includes the following: [x] Data and vital sign review and interpretation [x] Patient assessment, examination and intervention [x] Documentation [x] Medication orders and management Critical Care Time (min): 70 Coding Level of Care Code Acute Necktie Centralizing 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 for g Fwd Diagnoses Chronic pain G89.29 Rhabdomyolysis M62.82 Pneumonia J18.9 Sepsis A41.9 Metabolic acidosis E87.20 Hydronephrosis N13.30 LORRI (acute kidney injury) N17.9 Rib fracture S22.39XA
[2022-01-16] MEDS: enoxaparin 40 mg/0.4 mL Syringe SUBCUT (01:02)
[2022-01-16 01:15] LABS: Bilirubin Urine Negative (Negative); Blood Urine Large (Negative); Glucose Urine UA Negative (Normal); Ketones Urine Negative (Negative); Leukocyte Esterase Urine 3+ (Negative); Nitrate Urine Negative; Protein Urine 2+ (Negative); Urine Appearance Cloudy (CLEAR); Urine Color Amber (Yellow); Urobilinogen Urine 0.2 mg/dL (Negative)
[2022-01-16 01:16] LABS: Add Urine Microscopic? YES
[2022-01-16 01:22] LABS: Amphetamines Screen Urine Negative (Negative); Barbiturates Screen Urine Negative (Negative); Benzodiazepines Screen Urine Negative (Negative); Cocaine Screen Urine Negative (Negative); Opiate Screen Urine Negative (Negative); PCP Screen Urine Negative (Negative); THC Screen Urine Negative (Negative)
[2022-01-16 01:28] LABS: Add Urine Culture? Yes; Bacteria Urine 3+ /hpf; RBC Urine TOO NUMEROUS TO CNT /hpf (0-2); Squamous Epithelial Cell Urine 0-4 /hpf (0-5); WBC Urine TOO NUMEROUS TO CNT /hpf (0-5)
[2022-01-16 01:33] LABS: SARS Covid-2 Antigen Negative (Negative)
[2022-01-16 02:04] LABS: Acetaminophen < 5.0 ug/mL (10-30); Alcohol Level < 10 mg/dL (0-10); Salicylate < 0.3 mg/dL (3-10)
[2022-01-16 02:06] LABS: Troponin 5 2HR 107.3 ng/L (0-10); Troponin 5 2HR Delta -10.7 ABS# (0-10)
--- NOTE | 2022-01-16 03:25 | PC.NURSE ---
Received report from ANTOINE Law. Pt arrived from ER via stretcher @[id number]. Belongings at bedside include shirt, pants, and eye glasses. Family in waiting room. Pt connected to continuos pulse ox and cardiac monitoring. Pt on 2L NC breathing deep and labored, SpO2 96%. Pt temp 92.1 on arrival. Several warm blankets placed over pt and room temperature increased to 85. colostomy and urostomy inspected.
[2022-01-16 03:49] LABS: Glucose Point of Care 108 mg/dL (70-110)
[2022-01-16] MEDS: sodium bicarbonate 150 MEQ in dextrose 5% 1,000 ML 100 MEQ IV ×2 (04:04→14:41)
[2022-01-16 04:10] LABS: Basophils # 0.1 10^3/uL (0.0-0.1); Basophils % 0.4 %; Eosinophils # 0.1 10^3/uL (0.0-0.8); Eosinophils % 0.2 %; Hematocrit 41.4 % (37.0-47.0); Hemoglobin 12.6 g/dL (11.5-15.3); Lymphocytes # 1.5 10^3/uL (0.8-4.8); Lymphocytes % 4.9 %; Mean Corpuscular HGB Conc 30.4 g/dL (30.0-36.0); Mean Corpuscular Hemoglobin 29.3 pg (28.0-34.0); Mean Corpuscular Volume 96.3 fl (81-99); Mean Platelet Volume 10.4 fL (7.4-10.4); Monocytes # 1.3 10^3/uL (0.2-0.9); Monocytes % 4.2 %; Neutrophils # 27.58 10^3/uL (1.8-7.7); Neutrophils % 89.1 %; Nucleated Red Blood Cells # 0.5 /100WBC; Nucleated Red Blood Cells % 1.5 %; Platelet Count 207 10^3/cmm (130-400); Red Cell Distribution Width 17.4 % (12.1-15.1)
[2022-01-16] MEDS: dextrose 5%-sod chloride 0.9% 1,000 ML 150 ML IV (04:19)
[2022-01-16 04:33] LABS: Alanine Aminotransferase 57 U/L (0-33); Albumin Level 3.2 g/dL (3.5-5.2); Alkaline Phosphatase 265 U/L (35-105); Anion Gap 24.8 (5-19); Aspartate Amino Transferase 178 U/L (0-32); Blood Urea Nitrogen 59 mg/dL (8-23); Calcium 8.2 mg/dL (8.5-10.5); Chloride 114 mmol/L (98-107); Globulin 2.5 g/dL (1.3-4.6); Glomerular Filtration Rate 12.6 mL/min (90-130); Glucose 122 mg/dL (65-115); Magnesium 2.5 mg/dL (1.7-2.3); Osmolality Calculated 308 mOsm/kg (285-295); Potassium 3.8 mmol/L (3.5-5.1); Sodium 140 mmol/L (136-145); Total Bilirubin 0.4 mg/dL (0.15-1.2); Total Protein 5.7 g/dL (6.6-8.7)
--- NOTE | 2022-01-16 04:38 | ECG_ITS ---
[facility] Test Date: 2022-01-16 Pat Name: Deborah Inman Department: Room: [facility] Gender: Female Machine Tailer: : 1955 Requested By: Tatum Lerma Order Number: [id number] Mercedes MD: Sherri Baird M.D. Measurements Intervals [place] Rate: 81 P: 70 TX: 159 QRS: 11 QRSD: 85 T: 68 QT: 449 QTc: 521 Interpretive Statements SINUS RHYTHM LEFT ATRIAL ENLARGEMENT [-0.15mV P-WAVE IN V1/V2] PROLONGED QT INTERVAL Compared to ECG 01/16/2022 00:34:07 Prolonged QT interval now present T-wave abnormality no longer present Electronically Signed On 01-16-2022 13:55:26 CDT by Sherri Baird M.D. [email or web address]
[2022-01-16 04:54] LABS: Troponin 5 6HR Delta 7.6 ng/L (0-12)
[2022-01-16 04:55] LABS: Carbon Dioxide 5 mmol/L (22-29); Troponin 5 6HR 125.6 ng/L (0-10)
[2022-01-16] MEDS: aspirin 300 mg Supp PR (08:04)
[2022-01-16] MEDS: pantoprazole 40 mg SDV IVP (08:04)
--- NOTE | 2022-01-16 10:40 | PC.CHAP ---
Pastoral Care Encounter/Spiritual Assessment Type of Contact [] Declined drosser visit [] Patient/Family/Request visit [] Outpatient visit [] Follow-up visit [] Physician referral [] Code/Alert [x] Routine visit [] Staff referral [] Actively dying [x] Patient sleeping [] Family support [] [] Out of room [] Palliative care [] [] Receiving care in room [] Pre-surgical visit [] Trauma [] Long length of stay [x] ICU visit [] Other: Relational/Emotional Strength [] Patient feels connected with others/family/visitors/staff [] Distress [] Loneliness/isolation [] Abandonment Spirituality of Patient [] Person of Jerrica [] Attends Holiness of their Jerrica [] Believes in Prayer [] Reads Bible or Alevism materials [] There are Spiritual issues to be addressed Railway Signal Operator Interventions [x] Prayer [] Active listening [] Non-anxious presence [] Spiritual/emotional support [] Crisis/trauma care [] Spiritual counseling [] Bereavement support [] Provided bereavement packet [] Provided Bible/devotional materials [] Provided toy/stuffed animal, coloring book to patient or family member [] Provided Communion [] Anointing/[place] [] Salvation [x] Completed spiritual assessment [] Other: Impact on Illness or Injury [] Angry [] Fearful [] Anxious [] Often cries [] Exhaustion [] Unable to work [] Unable to attend anglican [] Unable to walk/stand [] Unable to read [] Unable to drive [] Unable to eat/drink [] Unable to sleep [] Unable to be with family [] Patient intubated [] Other: Summary Time spent with patient
[2022-01-16 12:28] LABS: Alanine Aminotransferase 47 U/L (0-33); Albumin Level 2.4 g/dL (3.5-5.2); Alkaline Phosphatase 182 U/L (35-105); Anion Gap 20.6 (5-19); Aspartate Amino Transferase 127 U/L (0-32); Blood Urea Nitrogen 55 mg/dL (8-23); Chloride 116 mmol/L (98-107); Globulin 2.2 g/dL (1.3-4.6); Glucose 252 mg/dL (65-115); Osmolality Calculated 316 mOsm/kg (285-295); Sodium 141 mmol/L (136-145); Total Bilirubin 0.3 mg/dL (0.15-1.2); Total Protein 4.6 g/dL (6.6-8.7)
[2022-01-16 12:42] LABS: Carbon Dioxide 7 mmol/L (22-29); Potassium 2.6 mmol/L (3.5-5.1)
[2022-01-16] MEDS: lanolin oint 7 gm 1 APPLIC TOPICAL (12:47)
[2022-01-16] MEDS: artificial tears Op Soln 15 mL Btl 1 DROP EYE-BOTH (12:48)
[2022-01-16 12:52] LABS: Glucose Point of Care 226 mg/dL (70-110)
[2022-01-16] MEDS: piperacillin-tazobactam 3.375 GM in sodium chloride 0.9% (plus) 50 ML IV (13:35)
--- NOTE | 2022-01-16 15:09 | PM.PN ---
Subjective Subjective: Admitted overnight. On examination family at bedside including patient's daughter, son and sister. As per the family patient does not have a DPOA and next of kin daughters and son said family will make the decisions together. We discussed the critical nature of patient's illness secondary to severe metabolic acidosis, rhabdomyolysis, leukocytosis and acute renal failure most likely precipitated by dehydration and fall. We discussed the need for possible dialysis given pH of less than 7 and bicarb of 5. They state patient is DNR/DNI, and past have declined chemotherapy, they do not think patient would want dialysis even if it is for lifesaving measures. We discussed the 2 options including dialysis versus management with fluid and frequent lab work check for next 24 to 48 hours. We also discussed if your numbers do not improve in the next 24 to 48 hours with significant improvement in patient's mentation we will have to have further goals of care discussion regarding hospice care versus comfort measures. Family is agreeable for option 2. Vitals/I&O/Wt Last Vital Signs Temp 97.1 F L 01/16/22 11:30 Pulse 79 01/16/22 13:30 Resp 13 01/16/22 13:30 BP 107/54 01/16/22 13:30 Pulse Ox 99 01/16/22 12:15 O2 Del Method 01/16/22 11:30 O2 Flow Rate 2 01/16/22 11:30 01/16/22 01/16/22 01/16/22 06:59 14:59 22:59 Intake Total 2300 / 2300 2061.667 / 2061.667 Output Total 525 / 525 300 / 300 Balance 1775 / 1775 1761.667 / 1761.667 Weight last 48 hrs Weight 44.996 kg Weight 44.996 kg Weight 40.823 kg Physical Exam Narrative: General: Lethargic, states name as Leanna Inman after multiple prompts, unable to participate in conversation, speaks 1-2 words. oriented x 1. Grossly dehydrated. HEENT: PERRLA, pupils bilaterally equal and reactive. Dry conjunctiva Chest: Normal vesicular breath sounds, no added sounds, equal good air entry bilaterally CVS: S1-S2 regular, no murmurs, no tachycardia, no gallops, no rubs Abdomen: Soft, nontender, ileostomy and colostomy in place Neuro: Lethargic, moves both upper etremities in bed, poor tone B/L LE. Data : 01/16/22 03:47 01/16/22 12:04 Micro: Microbiology 01/15/22 23:35 Blood Culture - Preliminary Blood SPECIMEN COLLECTED 01/15/22 23:35 Blood Culture - Preliminary Blood SPECIMEN COLLECTED A&P Assessment and plan (1) Chronic pain: (2) Rhabdomyolysis: (3) Pneumonia: (4) Sepsis: (5) Metabolic acidosis: (6) Hydronephrosis: (7) LORRI (acute kidney injury): (8) Rib fracture: (9) Goals of care, counseling/discussion: Plan 59-year-old female with past medical history of vulvar cancer, with urostomy and colostomy in place, fibromyalgia on pain medication with possibility of pain medication seeking behavior as an outpatient as per PCPs note brought into the ER after being found down for unknown amount of time and found to be with rib fracture, pneumonia, possible lung contusion, rhabdomyolysis with severe metabolic acidosis and acute kidney injury. As per family members patient would not want any invasive aggressive treatment. Severe metabolic acidosis/acute renal failure: Most likely secondary to rhabdomyolysis and acute renal failure. Family not agreeable for dialysis. For now continue D5W with 150 mg of sodium bicarbonate. Monitor CMP every 8 hourly. Medical reconciliation done for nephrotoxic drugs. Replete electrolytes as needed. Altered mental status: Metabolic encephalopathy: Most likely secondary to severe metabolic acidosis. Urine drug screen negative. Ethyl alcohol level negative. Withheld alcohol level pending. CT head negative for any stroke. Sepsis: As evidenced by leukocytosis, metabolic acidosis, signs of organ dysfunction incl LORRI, metabolic encephalopathy Source may be related to pneumonia vs complicated UTI Empiric treatment with ZOsyn and vancomycin Recieved sepsis bolus in ER, cotninue NS @ 100 cc/hr Rib fracture : likely from unwitnessed fall with underlyg pulmonary contusion and secondary pneumonia. Abx as above. Spirometry once mental status improved Rhabdoyolysis : IV hydration as above Elevated troponins : Most likely type II [place]. Baseline troponin at 118, pending 2 hr and [address]-T wave changes on EKG. May be NSTEMI vs type 2 NH. check echocardiogram. Start ASA rectally. will add a/c if significant delta trend or echo with RWMA. CODE status: DNR/DNI: No aggressive treatment. Discussed in detail with patient's DPOA including son, daughter and sister at bedside. Do not want dialysis. DVT ppx: lovenox 40 s/c GI ppx: protonix 40mg IV Analgesia: Tylenol as needed. Hold off on narcotics given poor mental status Glycemic control: Hypoglycemia protocol Nutrition: N.p.o. Discharge planning: Pending as patient is critically sick. Transfer to [facility]. This documentation was created by [employer] ornamental plaster sticker software. Every effort was made to ensure accuracy of ornamental plaster sticker. Any obvious errors or omissions should be clarified with the author of the document. Attestations Medical Necessity Statement*: Requires further hospitalization for management of severe metabolic acidosis, acute renal failure, rhabdomyolysis, possible sepsis Critical Care Time: The high probability of a clinically significant, sudden or life threatening deterioration of the patient's [renal, ID, goals of care] system(s) required my full and direct attention, intervention and personal management. The critical care time is as shown. This time is in addition to time spent performing any reported procedures but includes the following: [x] Data and vital sign review and interpretation [x] Patient assessment, examination and intervention [x] Documentation [x] Medication orders and management Critical Care Time (min): 60 Coding Level of Care Code Acute Cloth Grader Supervisor for g Fwd Diagnoses Chronic pain G89.29 Rhabdomyolysis M62.82 Pneumonia J18.9 Sepsis A41.9 Metabolic acidosis E87.20 Hydronephrosis N13.30 LORRI (acute kidney injury) N17.9 Rib fracture S22.39XA Goals of care, counseling/discussion Z71.89
[2022-01-16 17:50] LABS: Glucose Point of Care 178 mg/dL (70-110)
--- NOTE | 2022-01-16 17:55 | PC.NURSE ---
Addendum entered by Mitul Waggoner RN 01/16/22 17:58: Shift Summary: Uneventful shift. Patient rested in bed throughout the day. Red, but blanchable area noted to coccyx. Patient has a low BMI and has many bony prominences, Has been frequently turned. Mental status remains unchanged. Withdrawn from pain only. Patient may be attempting to open eyes to command, but difficult to say as the patient doesn't reliably do so. Family reports she will squeeze their hands or move feet to command, but this hasn't been observed by nurse. Urine output has been 475. Original Note: Shift Summary: Uneventful shift. Patient rested in bed throughout the day. Red, but blanchable area noted to coccyx. Patient has a low BMI and has many bony prominences, Has been frequently turned. Mental status remains unchanged. Withdrawn from pain only. Patient may be attempting to open eyes to command, but difficult to say as the patient doesn't reliably do so. Family remorts she qill squeeze their hands or move feet to command, but this hasn't been observed by nurse.
[2022-01-16 20:57] LABS: Glucose Point of Care 220 mg/dL (70-110)
[2022-01-16 22:16] LABS: Alanine Aminotransferase 44 U/L (0-33); Albumin Level 2.4 g/dL (3.5-5.2); Alkaline Phosphatase 162 U/L (35-105); Anion Gap 15.4 (5-19); Aspartate Amino Transferase 97 U/L (0-32); Blood Urea Nitrogen 56 mg/dL (8-23); Carbon Dioxide 14 mmol/L (22-29); Chloride 117 mmol/L (98-107); Glomerular Filtration Rate 11.5 mL/min (90-130); Glucose 246 mg/dL (65-115); Osmolality Calculated 320 mOsm/kg (285-295); Potassium 3.4 mmol/L (3.5-5.1); Sodium 143 mmol/L (136-145); Total Bilirubin 0.3 mg/dL (0.15-1.2); Total Protein 4.4 g/dL (6.6-8.7)
[2022-01-17] VITALS (84 sets, daily range): BP systolic 98–136; BP diastolic 44–75; PULSE 66–95; RESP 0–21; TEMP 36.6–38.1; O2SAT 96–100
[2022-01-17] MEDS: enoxaparin 40 mg/0.4 mL Syringe SUBCUT (00:10)
[2022-01-17] MEDS: artificial tears Op Soln 15 mL Btl 1 DROP EYE-BOTH (00:11)
[2022-01-17] MEDS: lanolin oint 7 gm 1 APPLIC TOPICAL (00:11)
[2022-01-17] MEDS: piperacillin-tazobactam 3.375 GM in sodium chloride 0.9% (plus) 50 ML IV ×2 (01:37→14:23)
[2022-01-17] MEDS: sodium bicarbonate 150 MEQ in dextrose 5% 1,000 ML 100 MEQ IV (03:12)
[2022-01-17 04:11] LABS: Alanine Aminotransferase 42 U/L (0-33); Albumin Level 2.3 g/dL (3.5-5.2); Alkaline Phosphatase 171 U/L (35-105); Aspartate Amino Transferase 92 U/L (0-32); Blood Urea Nitrogen 56 mg/dL (8-23); Carbon Dioxide 15 mmol/L (22-29); Chloride 116 mmol/L (98-107); Globulin 2.1 g/dL (1.3-4.6); Glomerular Filtration Rate 11.8 mL/min (90-130); Glucose 274 mg/dL (65-115); Magnesium 1.7 mg/dL (1.7-2.3); Osmolality Calculated 323 mOsm/kg (285-295); Sodium 144 mmol/L (136-145); Total Bilirubin 0.3 mg/dL (0.15-1.2); Total Protein 4.4 g/dL (6.6-8.7)
[2022-01-17] MEDS: pantoprazole 40 mg SDV IVP (08:35)
[2022-01-17] MEDS: aspirin 300 mg Supp PR (08:39)
[2022-01-17 09:38] LABS: Glucose Point of Care 217 mg/dL (70-110)
--- NOTE | 2022-01-17 09:55 | PC.NURSE ---
Upon morning assessment, here has been a significant improvement in mental status compared to yesterday Yesterday patient was unresponsive. Patient is now answering person, place, and time orientation questions. Following simple commands, and giving short appropriate responses to family's questions. NUrse alerted Dr butler.
[2022-01-17 10:18] LABS: Basophils % 0.1 %; Hematocrit 28.2 % (37.0-47.0); Hemoglobin 9.3 g/dL (11.5-15.3); Lymphocytes # 0.5 10^3/uL (0.8-4.8); Lymphocytes % 3.3 %; Mean Corpuscular Hemoglobin 29.6 pg (28.0-34.0); Mean Corpuscular Volume 89.8 fl (81-99); Mean Platelet Volume 10.4 fL (7.4-10.4); Monocytes # 0.5 10^3/uL (0.2-0.9); Monocytes % 3.5 %; Neutrophils # 13.72 10^3/uL (1.8-7.7); Nucleated Red Blood Cells % 0.1 %; Platelet Count 144 10^3/cmm (130-400); Red Blood Count 3.14 10^6/uL (4.1-5.3); Red Cell Distribution Width 17.3 % (12.1-15.1); White Blood Count 14.9 10^3/uL (4.0-10.0)
[2022-01-17] MEDS: potassium chloride premix 100 ML 25 MEQ IV ×2 (10:35→15:12)
--- NOTE | 2022-01-17 10:38 | PC.CHAP ---
Pastoral Care Encounter/Spiritual Assessment Type of Contact [] Declined commissioned fire officer visit [] Patient/Family/Request visit [] Outpatient visit [] Follow-up visit [] Physician referral [] Code/Alert [x] Routine visit [] Staff referral [] Actively dying [] Patient sleeping [] Family support [] [] Out of room [] Palliative care [] [] Receiving care in room [] Pre-surgical visit [] Trauma [] Long length of stay [x] ICU visit [] Other: Relational/Emotional Strength [] Patient feels connected with others/family/visitors/staff [] Distress [] Loneliness/isolation [] Abandonment Spirituality of Patient [] Person of Jerrica [] Attends Church of their [place] [] Believes in Prayer [] Reads Bible or Hinduism materials [] There are Spiritual issues to be addressed Chain 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 Interventions [x] Prayer [] Active listening [] Non-anxious presence [] Spiritual/emotional support [] Crisis/trauma care [] Spiritual counseling [] Bereavement support [] Provided bereavement packet [] Provided Bible/devotional materials [] Provided toy/stuffed animal, coloring book to patient or family member [] Provided Communion [] Anointing/[place] [] Salvation [x] Completed spiritual assessment [] Other: Impact on Illness or Injury [] Angry [] Fearful [] Anxious [] Often cries [] Exhaustion [] Unable to work [] Unable to attend mu-ism [] Unable to walk/stand [] Unable to read [] Unable to drive [] Unable to eat/drink [] Unable to sleep [] Unable to be with family [] Patient intubated [] Other: Summary Time spent with patient
[2022-01-17 10:41] LABS: Creatine Phosphokinase 1385 U/L (26-192)
[2022-01-17 11:17] LABS: Glucose Point of Care 211 mg/dL (70-110)
[2022-01-17 13:01] LABS: Alanine Aminotransferase 39 U/L (0-33); Albumin Level 2.1 g/dL (3.5-5.2); Alkaline Phosphatase 133 U/L (35-105); Anion Gap 14.2 (5-19); Aspartate Amino Transferase 75 U/L (0-32); Blood Urea Nitrogen 55 mg/dL (8-23); Calcium 6.5 mg/dL (8.5-10.5); Carbon Dioxide 18 mmol/L (22-29); Chloride 116 mmol/L (98-107); Globulin 2.1 g/dL (1.3-4.6); Glomerular Filtration Rate 12.6 mL/min (90-130); Glucose 217 mg/dL (65-115); Osmolality Calculated 322 mOsm/kg (285-295); Potassium 3.2 mmol/L (3.5-5.1); Sodium 145 mmol/L (136-145); Total Bilirubin 0.3 mg/dL (0.15-1.2); Total Protein 4.2 g/dL (6.6-8.7)
[2022-01-17] MEDS: FUROsemide 10 mg/mL SDV 4mL 40 MG IVP (14:00)
--- NOTE | 2022-01-17 14:48 | PC.SLP ---
Orders received, chart reviewed. Two attempts made to assess patient, however, she is unable to fully participate at this time. Will continue to monitor and assess as appropriate.
--- NOTE | 2022-01-17 14:55 | P.PN_ITS ---
Subjective Subjective: No acute events overnight. Patient has remained hemodynamically stable and afebrile. Today morning examination patient responded to verbal and physical stimuli further was laying down with eyes closed. Family at bedside. On waking up she is able to appropriately follow commands though very lethargic and slow to respond. Is alert to self. Vitals/I&O/Wt Last Vital Signs Temp 98.7 F 01/17/22 12:15 Pulse 78 01/17/22 12:15 Resp 14 01/17/22 12:15 BP 105/50 01/17/22 12:15 Pulse Ox 98 01/17/22 12:15 O2 Del Method 01/17/22 12:15 O2 Flow Rate 2 01/17/22 12:15 01/16/22 01/17/22 01/17/22 22:59 06:59 14:59 Intake Total 250 / 2311.667 1200 / 3511.667 Output Total 175 / 475 400 / 875 300 / 300 Balance 75 / 1836.667 800 / 2636.667 -300 / -300 Weight last 48 hrs Weight 44.996 kg Weight 44.996 kg Weight 44.996 kg Weight 40.823 kg Physical Exam Narrative: General: Lethargic, sleeping on examination, wakes up to verbal cue, alert to self and following simple commands. HEENT: PERRLA, pupils bilaterally equal and reactive. Dry conjunctiva Chest: Normal vesicular breath sounds, no added sounds, equal good air entry bilaterally CVS: S1-S2 regular, no murmurs, no tachycardia, no gallops, no rubs Abdomen: Soft, nontender, ileostomy and colostomy in place Neuro: Lethargic, moves both upper etremities in bed, poor tone B/L LE. Data : 01/17/22 10:08 01/17/22 12:17 Micro: Microbiology 01/16/22 01:08 Urine Culture - Preliminary Urine,Clean Catch Gram Negative Rods Gram Negative Rods#2 01/17/22 10:08 Blood Culture - Preliminary Blood SPECIMEN COLLECTED 01/17/22 10:09 Blood Culture - Preliminary Blood SPECIMEN COLLECTED 01/16/22 01:08 MRSA Culture - Final Nose 01/15/22 23:35 Blood Culture - Preliminary Blood 01/15/22 23:35 Blood Culture - Preliminary Blood NEGATIVE TO DATE A&P Assessment and plan (1) Chronic pain: (2) Rhabdomyolysis: (3) Pneumonia: (4) Sepsis: (5) Metabolic acidosis: (6) Hydronephrosis: (7) LORRI (acute kidney injury): (8) Rib fracture: (9) Goals of care, counseling/discussion: (10) Gram-negative bacteremia: Plan 59-year-old female with past medical history of vulvar cancer, with urostomy and colostomy in place, fibromyalgia on pain medication with possibility of pain medication seeking behavior as an outpatient as per PCPs note brought into the ER after being found down for unknown amount of time and found to be with rib fracture, pneumonia, possible lung contusion, rhabdomyolysis with severe metabolic acidosis and acute kidney injury. As per family members patient would not want any invasive aggressive treatment. Severe metabolic acidosis/acute renal failure: Most likely secondary to rhabdomyolysis and acute renal failure. Improving. Family not agreeable for dialysis. Will continue to monitor CMP every 8 hourly and change to fluids and sodium bicarb infusion accordingly. For now changed to D5W with 50 mEq of sodium bicarb. Medical reconciliation done for nephrotoxic drugs. Replete electrolytes as needed. Altered mental status: Metabolic encephalopathy: Most likely secondary to severe metabolic acidosis. Slightly improving. Urine drug screen negative. Ethyl alcohol level negative. Withheld alcohol level pending. CT head negative for any stroke. Sepsis: As evidenced by leukocytosis, metabolic acidosis, signs of organ dysfunction incl LORRI, metabolic encephalopathy Source may be related to pneumonia vs complicated UTI Blood culture positive for gram-negative bacilli. Repeat blood cultures. Urine cultures positive for 2 different gram-negative rods. MRSA negative. For now continue with Zosyn and vancomycin. We will plan to stop vancomycin in the next 24 hours. Rib fracture : likely from unwitnessed fall with underlyg pulmonary contusion and secondary pneumonia. Abx as above. Spirometry once mental status improved Rhabdoyolysis : IV hydration as above Elevated troponins : Most likely type II CO. Baseline troponin at 118, pending 2 hr and [address]-T wave changes on EKG. May be NSTEMI vs type 2 CO. check echocardiogram. Start ASA rectally. will add a/c if significant delta trend or echo with RWMA. CODE status: DNR/DNI: No aggressive treatment. Discussed in detail with patient's DPOA including son, daughter and sister at bedside. Do not want dialysis. DVT ppx: lovenox 40 s/c GI ppx: protonix 40mg IV Analgesia: Tylenol as needed. Hold off on narcotics given poor mental status Glycemic control: Hypoglycemia protocol Nutrition: N.p.o. Discharge planning: Pending as patient is critically sick. Transfer to [facility]. Care discussed in detail with patient's sister at bedside. All the questions were answered. This documentation was created by [employer] forensic investigator software. Every effort was made to ensure accuracy of forensic investigator. Any obvious errors or omissions should be clarified with the author of the document. Attestations Medical Necessity Statement*: Requires further hospitalization for management of severe metabolic acidosis secondary to acute kidney injury, rhabdomyolysis, gram-negative bacteremia Critical Care Time: The high probability of a clinically significant, sudden or life threatening deterioration of the patient's [renal, goals of care] system(s) required my full and direct attention, intervention and personal management. The critical care time is as shown. This time is in addition to time spent performing any reported procedures but includes the following: [x] Data and vital sign review and interpretation [x] Patient assessment, examination and intervention [x] Documentation [x] Medication orders and management Critical Care Time (min): 60 Coding Level of Care Code Acute Fitness Supervisor for [facility] Fwd Diagnoses Chronic pain G89.29 Rhabdomyolysis M62.82 Pneumonia J18.9 Sepsis A41.9 Metabolic acidosis E87.20 Hydronephrosis N13.30 LORRI (acute kidney injury) N17.9 Rib fracture S22.39XA Goals of care, counseling/discussion Z71.89 Gram-negative bacteremia R78.81
[2022-01-17 17:36] LABS: Glucose Point of Care 200 mg/dL (70-110)
--- NOTE | 2022-01-17 19:22 | PC.NURSE ---
Shift SUmmary: patient has rested in bed throughout the day. Turned every hour. Mental status has improved. Patient is able to answer person, place, time, and situation, and answer family questions with short and appropriate responses. Patient is still very lethargic, and does have difficulty answering questions, and mental status is variable. urine output for the day is 925 mL, 525mL of the total urine output occured after lasix administration.
[2022-01-17 20:07] LABS: Alanine Aminotransferase 43 U/L (0-33); Albumin Level 2.2 g/dL (3.5-5.2); Alkaline Phosphatase 143 U/L (35-105); Anion Gap 15.7 (5-19); Aspartate Amino Transferase 75 U/L (0-32); Blood Urea Nitrogen 55 mg/dL (8-23); Calcium 6.6 mg/dL (8.5-10.5); Carbon Dioxide 20 mmol/L (22-29); Chloride 113 mmol/L (98-107); Globulin 2.5 g/dL (1.3-4.6); Glomerular Filtration Rate 12.6 mL/min (90-130); Glucose 220 mg/dL (65-115); Osmolality Calculated 322 mOsm/kg (285-295); Potassium 3.7 mmol/L (3.5-5.1); Sodium 145 mmol/L (136-145); Total Bilirubin 0.4 mg/dL (0.15-1.2); Total Protein 4.7 g/dL (6.6-8.7)
[2022-01-17 20:18] LABS: Glucose Point of Care 212 mg/dL (70-110)
[2022-01-17 21:16] LABS: Glucose Point of Care 201 mg/dL (70-110)
[2022-01-17] MEDS: enoxaparin 30 mg/0.3 mL Syringe SUBCUT (23:53)
[2022-01-18] VITALS (14 sets, daily range): BP systolic 108–148; BP diastolic 64–76; PULSE 56–78; RESP 15–22; TEMP 36.7–37.1; O2SAT 98–99
[2022-01-18] MEDS: piperacillin-tazobactam 3.375 GM in sodium chloride 0.9% (plus) 50 ML IV ×2 (01:54→16:05)
[2022-01-18 04:39] LABS: Basophils % 0.1 %; Eosinophils % 0.3 %; Hemoglobin 8.9 g/dL (11.5-15.3); Lymphocytes # 0.7 10^3/uL (0.8-4.8); Lymphocytes % 4.7 %; Mean Corpuscular HGB Conc 31.8 g/dL (30.0-36.0); Mean Corpuscular Hemoglobin 29.3 pg (28.0-34.0); Mean Corpuscular Volume 92.1 fl (81-99); Mean Platelet Volume 10.4 fL (7.4-10.4); Monocytes # 0.4 10^3/uL (0.2-0.9); Monocytes % 2.9 %; Neutrophils # 13.43 10^3/uL (1.8-7.7); Neutrophils % 90.5 %; Nucleated Red Blood Cells % 0 %; Platelet Count 118 10^3/cmm (130-400); Red Blood Count 3.04 10^6/uL (4.1-5.3); Red Cell Distribution Width 17.7 % (12.1-15.1); White Blood Count 14.8 10^3/uL (4.0-10.0)
[2022-01-18 05:07] LABS: Vancomycin Random 9.5 ug/mL (20.0-40.0)
[2022-01-18 05:18] LABS: Alanine Aminotransferase 45 U/L (0-33); Albumin Level 2.4 g/dL (3.5-5.2); Alkaline Phosphatase 135 U/L (35-105); Aspartate Amino Transferase 71 U/L (0-32); Blood Urea Nitrogen 52 mg/dL (8-23); Calcium 6.5 mg/dL (8.5-10.5); Carbon Dioxide 23 mmol/L (22-29); Chloride 110 mmol/L (98-107); Globulin 1.8 g/dL (1.3-4.6); Glucose 273 mg/dL (65-115); Osmolality Calculated 324 mOsm/kg (285-295); Sodium 145 mmol/L (136-145); Total Bilirubin 0.4 mg/dL (0.15-1.2); Total Protein 4.2 g/dL (6.6-8.7)
[2022-01-18 06:10] LABS: Glucose Point of Care 176 mg/dL (70-110)
[2022-01-18] MEDS: thiamine 100 mg Tablet 50 MG PO (08:38)
[2022-01-18] MEDS: pantoprazole 40 mg SDV IVP (08:42)
[2022-01-18 10:13] LABS: Magnesium 1.7 mg/dL (1.7-2.3)
[2022-01-18 10:28] LABS: 25 Hydroxy Vitamin D 12 ng/mL (30-100)
[2022-01-18 10:43] LABS: Calcium 6.4 mg/dL (8.5-10.5); Parathyroid Hormone 189.6 pg/mL (15-65)
[2022-01-18 10:48] LABS: Glucose Point of Care 212 mg/dL (70-110)
[2022-01-18] MEDS: dextrose 5% 1,000 ML 100 ML IV (12:20)
[2022-01-18] MEDS: calcium chloride 10% Syr 10 mL 1 GM IVP (12:21)
[2022-01-18] MEDS: insulin lispro 100 unit/1 mL SUBCUT (12:22)
[2022-01-18] MEDS: multivitamin therapeutic Tablet 1 TAB PO (12:22)
[2022-01-18] MEDS: oxyCODONE 5 mg IR Tab/Cap PO (12:31)
--- NOTE | 2022-01-18 12:51 | P.PN_ITS ---
Subjective Subjective: No acute vents overnight. Today morning seen with family at bedside on [facility] floor. Patient is more awake today. She is sleeping on presentation but wakes up to verbal cue. On waking up she is able to answer questions completely and have a complete conversation. She states this her name, correctly that she is in the hospital name of the hospital. She states she to the hospital because she fell. She states last thing she remembers is falling. She thinks she tripped. Denies of having any active complaints prior to fall. States she takes OxyContin 20 mg 3 times a day. Denies of having any diarrhea prior to admission. Currently complaining of pain in her back at a particular point. Documented urine output of around 2.3 L in last 24 hours. Remains on room air. Vitals/I&O/Wt Last Vital Signs Temp 98.1 F 01/18/22 11:48 Pulse 69 01/18/22 11:48 Resp 22 H 01/18/22 12:31 BP 108/64 01/18/22 11:48 Pulse Ox 98 01/18/22 11:48 O2 Del Method 01/18/22 11:48 O2 Flow Rate 2 01/18/22 09:30 01/17/22 01/18/22 01/18/22 22:59 06:59 14:59 Intake Total 1200 / 1300 953.333 / 2253.333 120 / 120 Output Total 625 / 925 1400 / 2325 Balance 575 / 375 -446.667 / -71.667 120 / 120 Weight last 48 hrs Weight 47.763 kg Weight 44.996 kg Physical Exam Narrative: General: Sick appearing, weak lethargic, sleeping on examination, wakes up to verbal cue AOx3 on waking up HEENT: PERRLA, pupils bilaterally equal and reactive. Less dry conjunctiva Chest: Normal vesicular breath sounds, no added sounds, equal good air entry bilaterally CVS: S1-S2 regular, no murmurs, no tachycardia, no gallops, no rubs Abdomen: Soft, nontender, ileostomy and colostomy in place Neuro: Lethargic, moves both upper etremities in bed, poor tone B/L LE. Data : 01/18/22 04:30 01/18/22 04:30 Micro: Microbiology 01/17/22 10:09 Blood Culture - Preliminary Blood NEGATIVE TO DATE 01/17/22 10:08 Blood Culture - Preliminary Blood NEGATIVE TO DATE 01/16/22 01:08 Urine Culture - Preliminary Urine,Clean Catch Gram Negative Rods Gram Negative Rods#2 01/16/22 01:08 MRSA Culture - Final Nose A&P Assessment and plan (1) Gram-negative bacteremia: (2) Sepsis: (3) LORRI (acute kidney injury): (4) Pneumonia: (5) Metabolic acidosis: (6) Hydronephrosis: (7) Rhabdomyolysis: (8) Rib fracture: (9) Goals of care, counseling/discussion: (10) Chronic pain: (11) Severe protein-energy malnutrition: (12) Physical deconditioning: Plan 59-year-old female with past medical history of vulvar cancer, with urostomy and colostomy in place, fibromyalgia on pain medication with possibility of pain medication seeking behavior as an outpatient as per PCPs note brought into the ER after being found down for unknown amount of time and found to be with rib fracture, pneumonia, possible lung contusion, rhabdomyolysis with severe metabolic acidosis and acute kidney injury. As per family members patient would not want any invasive aggressive treatment. Severe metabolic acidosis/acute renal failure: Most likely secondary to rhabdomyolysis and acute renal failure. Resolved. Family not agreeable for dialysis. Creatinine stable at 3.5. Recheck CMP in evening. Switch fluids to D5W 100 cc/h. Stop bicarb infusion. . Medical reconciliation done for nephrotoxic drugs. Replete potassium 80 mg, calcium 1 g. Altered mental status: Metabolic encephalopathy: Most likely secondary to severe metabolic acidosis. Resolving. Urine drug screen negative. Ethyl alcohol level negative. Withheld alcohol level pending. CT head negative for any stroke. Sepsis: As evidenced by leukocytosis, metabolic acidosis, signs of organ dysfunction incl LORRI, metabolic encephalopathy Source may be related to pneumonia vs complicated UTI Blood culture positive for gram-negative bacilli. Repeat blood cultures. Urine cultures positive for 2 different gram-negative rods. MRSA negative. Stop vancomycin. Continue with Zosyn. As per creatinine clearance. Hypocalcemia: Replete 1 g IV calcium. Monitor daily. Check vitamin D, PTH. Rib fracture : likely from unwitnessed fall with underlyg pulmonary contusion and secondary pneumonia. Abx as above. Spirometry once mental status improved Rhabdoyolysis : IV hydration as above Elevated troponins : Most likely type II WI. Most likely secondary to type II WI. A cardiogram ruled out regional wall motion abnormality. Normal EF. Start ASA rectally. will add a/c if significant delta trend or echo with RWMA. CODE status: DNR/DNI: No aggressive treatment. Discussed in detail with patient's DPOA including son, daughter and sister at bedside. Do not want dialysis. DVT ppx: lovenox 40 s/c GI ppx: protonix 40mg IV Analgesia: Tylenol as needed. Morphine 1 mg IV every 6 hours as needed Glycemic control: Hypoglycemia protocol Nutrition: To be advanced as per swallow evaluation. Discharge planning: Home with home health versus SNF placement. Physical therapy evaluation. Continue care at [facility] floor. Care discussed in detail with patient's sister at bedside. All the questions were answered. This documentation was created by [employer] roller setter software. Every effort was made to ensure accuracy of roller setter. Any obvious errors or omissions should be clarified with the author of the document. Attestations Medical Necessity Statement*: Requires further hospitalization for acute renal failure, resolving severe metabolic acidosis secondary to rhabdomyolysis, gram- negative bacteremia, severe malnutrition as patient remains critically sick Time Spent in Patient Care: Greater than 35 minutes Coding Level of Care Code Acute Lead Man Over All Dies In Pattern Shop for [facility] Fwd Diagnoses Gram-negative bacteremia R78.81 Sepsis A41.9 LORRI (acute kidney injury) N17.9 Pneumonia J18.9 Metabolic acidosis E87.20 Hydronephrosis N13.30 Rhabdomyolysis M62.82 Rib fracture S22.39XA Goals of care, counseling/discussion Z71.89 Chronic pain G89.29 Severe protein-energy malnutrition E43 Physical deconditioning R53.81
[2022-01-18] MEDS: lidocaine 1% 5 ML in potassium chloride premix 100 ML 25 ML IV ×2 (16:03→21:32)
[2022-01-18 16:49] LABS: Glucose Point of Care 89 mg/dL (70-110)
[2022-01-18 18:28] LABS: Alanine Aminotransferase 46 U/L (0-33); Albumin Level 2.1 g/dL (3.5-5.2); Alkaline Phosphatase 136 U/L (35-105); Aspartate Amino Transferase 65 U/L (0-32); Blood Urea Nitrogen 46 mg/dL (8-23); Calcium 6.7 mg/dL (8.5-10.5); Carbon Dioxide 22 mmol/L (22-29); Chloride 109 mmol/L (98-107); Globulin 2.8 g/dL (1.3-4.6); Glomerular Filtration Rate 16.9 mL/min (90-130); Glucose 138 mg/dL (65-115); Osmolality Calculated 314 mOsm/kg (285-295); Sodium 145 mmol/L (136-145); Total Bilirubin 0.4 mg/dL (0.15-1.2); Total Protein 4.9 g/dL (6.6-8.7)
[2022-01-18 20:24] LABS: Glucose Point of Care 136 mg/dL (70-110)
[2022-01-18] MEDS: morphine 4 mg/mL SDV 1 mL 1 MG IVP (22:57)
[2022-01-18] MEDS: enoxaparin 30 mg/0.3 mL Syringe SUBCUT (23:14)
[2022-01-19] VITALS (13 sets, daily range): BP systolic 130–159; BP diastolic 64–79; PULSE 51–67; RESP 14–19; TEMP 36.4–36.8; O2SAT 95–100
[2022-01-19 00:58] LABS: Alcohol, Methyl NONE DETECTED (NONE DETECTED); Volatile Analysis Performed On WHOLE BLOOD
[2022-01-19] MEDS: piperacillin-tazobactam 3.375 GM in sodium chloride 0.9% (plus) 50 ML IV (02:43)
[2022-01-19] MEDS: dextrose 5% 1,000 ML 100 ML IV ×2 (02:44→16:53)
[2022-01-19 04:59] LABS: Basophils % 0.2 %; Eosinophils # 0.1 10^3/uL (0.0-0.8); Eosinophils % 1.2 %; Hematocrit 28.7 % (37.0-47.0); Hemoglobin 9.1 g/dL (11.5-15.3); Lymphocytes # 0.8 10^3/uL (0.8-4.8); Lymphocytes % 6.6 %; Mean Corpuscular HGB Conc 31.7 g/dL (30.0-36.0); Mean Corpuscular Hemoglobin 29.4 pg (28.0-34.0); Mean Corpuscular Volume 92.9 fl (81-99); Mean Platelet Volume 11.1 fL (7.4-10.4); Monocytes # 0.5 10^3/uL (0.2-0.9); Monocytes % 4.1 %; Neutrophils # 10.02 10^3/uL (1.8-7.7); Neutrophils % 87.5 %; Nucleated Red Blood Cells % 0 %; Platelet Count 92 10^3/cmm (130-400); Red Blood Count 3.09 10^6/uL (4.1-5.3); Red Cell Distribution Width 17.1 % (12.1-15.1); White Blood Count 11.5 10^3/uL (4.0-10.0)
--- NOTE | 2022-01-19 05:10 | PC.NURSE ---
late entry 2299, patient requesting pain med, informed her that morphine was ordered, but morphine was listed as an allergy for her, states it will be okay for me, i can take it.
[2022-01-19 05:18] LABS: Alanine Aminotransferase 46 U/L (0-33); Albumin Level 2.4 g/dL (3.5-5.2); Alkaline Phosphatase 137 U/L (35-105); Anion Gap 13.9 (5-19); Aspartate Amino Transferase 59 U/L (0-32); Blood Urea Nitrogen 45 mg/dL (8-23); Calcium 7.3 mg/dL (8.5-10.5); Carbon Dioxide 23 mmol/L (22-29); Chloride 111 mmol/L (98-107); Globulin 2.4 g/dL (1.3-4.6); Glucose 114 mg/dL (65-115); Osmolality Calculated 310 mOsm/kg (285-295); Potassium 3.9 mmol/L (3.5-5.1); Sodium 144 mmol/L (136-145); Total Bilirubin 0.4 mg/dL (0.15-1.2); Total Protein 4.8 g/dL (6.6-8.7)
[2022-01-19] MEDS: morphine 4 mg/mL SDV 1 mL 1 MG IVP (05:41)
[2022-01-19 06:20] LABS: Glucose Point of Care 120 mg/dL (70-110)
[2022-01-19] MEDS: pantoprazole 40 mg SDV IVP (08:49)
[2022-01-19] MEDS: thiamine 100 mg Tablet 50 MG PO (09:00)
[2022-01-19] MEDS: cefTRIAXone 1,000 MG in sodium chloride 0.9% (plus) 50 ML 100 MG IV (09:01)
--- NOTE | 2022-01-19 09:23 | PC.NURSE ---
During physician rounding received orders for ECG due to new bradycardic episodes and tramadol 50mg Q6 for pain
--- NOTE | 2022-01-19 09:38 | ECG_ITS ---
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 Measurements Intervals [place] Rate: 58 P: 14 TN: 129 QRS: 38 QRSD: 82 T: 60 QT: 425 QTc: 418 Interpretive Statements SINUS BRADYCARDIA WITH MARKED SINUS ARRHYTHMIA Compared to ECG 01/16/2022 04:42:31 Sinus rhythm no longer present Atrial abnormality no longer present Prolonged QT interval no longer present Electronically Signed On 01-19-2022 14:47:43 CDT by Jamie Chew M.D. [id number]
[2022-01-19 10:59] LABS: Glucose Point of Care 103 mg/dL (70-110)
--- NOTE | 2022-01-19 11:15 | PC.SOCIAL ---
IMM update IMM updated with patient and daughter at bedside. Verbalized an understanding. Copy PG 2 provided. Initialled, dated, timed, and placed in chart.
--- NOTE | 2022-01-19 12:48 | XRR_ITS ---
PROCEDURE INFORMATION: Exam: XR Right Elbow Exam date and time: 01/19/2022 2:00 PM Age: 66 years old Clinical indication: Injury or trauma; Bleeding/hemorrhage; Elbow; Right; Injury details: Fall but does not remember when. RT wrist pain; Prior surgery; Surgery type: Carpal tunnel; Additional info: Pain post fall TECHNIQUE: Imaging protocol: Radiologic exam of the Right elbow. Views: 1 or 2 views. COMPARISON: CR XR wrist RT 1V [id number] 01/19/2022 1:53 PM FINDINGS: Bones/joints: Normal. Soft tissues: Probable anterior soft tissue swelling. No soft tissue gas. Other findings: Two views submitted. XR/XR elbow RT 2V [id number] IMPRESSION: No acute fracture. Other findings as above.
--- NOTE | 2022-01-19 12:48 | XRR_ITS ---
PROCEDURE INFORMATION: Exam: XR Right Wrist Exam date and time: 01/19/2022 1:53 PM Age: 66 years old Clinical indication: Injury or trauma; Blunt trauma (contusions or hematomas); Right; Injury details: Fall but does not remember when. RT wrist pain; Prior surgery; Surgery type: Carpal tunnel; Additional info: Pain post fall TECHNIQUE: Imaging protocol: Radiologic exam of the Right wrist. Views: 1 or 2 views. COMPARISON: No relevant prior studies available. FINDINGS: Bones/joints: Osteopenia limiting assessment of nondisplaced acute osseous injury. A limited exam with single projection. No obvious acute fracture. Multi regional degenerative disease with joint space narrowing, subchondral sclerosis and spurring in the TST joints and multiple MCP joints. Probable chronic fracture deformity of the partially visualized 5th proximal phalanx. Soft tissues: Probable mild soft tissue swelling at the medial and lateral aspect. Questionable tiny bony erosion is noted at the base of 5th metacarpal. XR/XR wrist RT 1V [id number] IMPRESSION: 1. Very limited exam with single view. Additional views should be obtained if clinically indicated. 2. No obvious acute displaced fracture. Other findings as above.
--- NOTE | 2022-01-19 12:55 | PM.PN ---
Subjective Subjective: No acute events overnight. Today morning examination daughter at bedside. Patient on entering the room is awake and alert. Able to have complete conversation. As per the daughter patient is back to her baseline mentation. Patient stating she is hungry and would want to eat. Also asking for her pain medications. We discussed that we will start her on full liquid diet today and advance as per swallow evaluation. Also discussed that pain medication for now would be tramadol as needed along with oxycodone 5 mg every 6 hour as needed. Patient wants higher pain regimen as she states she is used to higher doses. We discussed for now this is the dose we will be giving and then go higher as her mentation allows. Vitals/I&O/Wt Last Vital Signs Temp 97.9 F 01/19/22 11:24 Pulse 56 L 01/19/22 11:24 Resp 14 01/19/22 11:24 BP 140/64 01/19/22 11:24 Pulse Ox 99 01/19/22 11:24 O2 Del Method 01/19/22 08:00 O2 Flow Rate 1 01/19/22 07:56 01/18/22 01/19/22 01/19/22 22:59 06:59 14:59 Intake Total 1395.000 / 1755.000 500 / 2255.000 205 / 205 Output Total 1550 / 1550 500 / 500 Balance 1395.000 / 1755.000 -1050 / 705.000 -295 / -295 Weight last 48 hrs Weight 47.627 kg Weight 47.763 kg Physical Exam Narrative: General: Chronically sick appearing, awake and alert today. Not lethargic. Having complete conversation. HEENT: PERRLA, pupils bilaterally equal and reactive. Less dry conjunctiva Chest: Normal vesicular breath sounds, no added sounds, equal good air entry bilaterally CVS: S1-S2 regular, no murmurs, no tachycardia, no gallops, no rubs Abdomen: Soft, nontender, ileostomy and colostomy in place Neuro: No focal deficit, moving all limbs. Data : 01/19/22 04:40 01/19/22 04:40 Micro: Microbiology 01/16/22 01:08 Urine Culture - Final Urine,Clean Catch Klebsiella oxytoca Escherichia coli 01/17/22 10:09 Blood Culture - Preliminary Blood NEGATIVE TO DATE 01/17/22 10:08 Blood Culture - Preliminary Blood NEGATIVE TO DATE A&P Assessment and plan (1) Gram-negative bacteremia: (2) Sepsis: (3) LORRI (acute kidney injury): (4) Pneumonia: (5) Metabolic acidosis: (6) Hydronephrosis: (7) Rhabdomyolysis: (8) Rib fracture: (9) Goals of care, counseling/discussion: (10) Chronic pain: (11) Severe protein-energy malnutrition: (12) Physical deconditioning: Plan 59-year-old female with past medical history of vulvar cancer, with urostomy and colostomy in place, fibromyalgia on pain medication with possibility of pain medication seeking behavior as an outpatient as per PCPs note brought into the ER after being found down for unknown amount of time and found to be with rib fracture, pneumonia, possible lung contusion, rhabdomyolysis with severe metabolic acidosis and acute kidney injury. As per family members patient would not want any invasive aggressive treatment. Severe metabolic acidosis/acute renal failure: Most likely secondary to rhabdomyolysis and acute renal failure. Resolved. Family not agreeable for dialysis. Creatinine stable at 3.5. Recheck CMP in evening. Switch fluids to D5W 100 cc/h. Stop bicarb infusion. . Medical reconciliation done for nephrotoxic drugs. Replete potassium 80 mg, calcium 1 g. Altered mental status: Metabolic encephalopathy: Most likely secondary to severe metabolic acidosis. Resolving. Urine drug screen negative. Ethyl alcohol level negative. Withheld alcohol level pending. CT head negative for any stroke. Sepsis: As evidenced by leukocytosis, metabolic acidosis, signs of organ dysfunction incl LORRI, metabolic encephalopathy Source may be related to pneumonia vs complicated UTI Blood culture positive for gram-negative bacilli. Repeat blood cultures. Urine cultures positive for 2 different gram-negative rods. MRSA negative. Stop vancomycin. Continue with Zosyn. As per creatinine clearance. Hypocalcemia: Replete 1 g IV calcium. Monitor daily. Check vitamin D, PTH. Rib fracture : likely from unwitnessed fall with underlyg pulmonary contusion and secondary pneumonia. Abx as above. Spirometry once mental status improved Rhabdoyolysis : IV hydration as above Elevated troponins : Most likely type II DC. Most likely secondary to type II DC. A cardiogram ruled out regional wall motion abnormality. Normal EF. Start ASA rectally. will add a/c if significant delta trend or echo with RWMA. CODE status: DNR/DNI: No aggressive treatment. Discussed in detail with patient's DPOA including son, daughter and sister at bedside. Do not want dialysis. DVT ppx: lovenox 40 s/c GI ppx: protonix 40mg IV Analgesia: Tylenol as needed. Morphine 1 mg IV every 6 hours as needed Glycemic control: Hypoglycemia protocol Nutrition: To be advanced as per swallow evaluation. Discharge planning: Home with home health versus SNF placement. Physical therapy evaluation. Continue care at [facility] floor. Plan for the day: Stop Zosyn. Switch to IV ceftriaxone as per urine culture sensitivities. Urine culture growing E. coli and Klebsiella. Blood culture speciation still pending. Continue with D5W at 100 cc/h. Check EKG for bradycardia. Full liquid diet. Advance as per swallow evaluation. For pain tramadol 50 every 6 hourly as needed, oxycodone IR 5 mg every 6 hourly as needed. Stop IV morphine. Patient will can thrombocytopenia. Stop Lovenox. Check heparin induced thrombocytopenia panel. We will continue to monitor platelets daily. Physical therapy. X-ray right elbow and wrist for pain to rule out any injuries post fall. Discharge planning Home with home health versus SNF. Care management alerted. Care discussed in detail with patient's sister at bedside. All the questions were answered. This documentation was created by [employer] internal communications manager software. Every effort was made to ensure accuracy of internal communications manager. Any obvious errors or omissions should be clarified with the author of the document. 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
[2022-01-19] MEDS: oxyCODONE 5 mg IR Tab/Cap PO ×2 (13:52→21:32)
[2022-01-19 17:23] LABS: Glucose Point of Care 126 mg/dL (70-110)
--- NOTE | 2022-01-19 19:27 | PC.NURSE ---
Physician orders: Furosemide 40mg IVP once
[2022-01-19] MEDS: FUROsemide 10 mg/mL SDV 4mL 40 MG IVP (21:29)
[2022-01-19 22:16] LABS: Glucose Point of Care 154 mg/dL (70-110)
[2022-01-19] MEDS: insulin lispro 100 unit/1 mL SUBCUT (22:33)
[2022-01-19] MEDS: TRAMadol 50 mg Tablet PO (23:05)
--- NOTE | 2022-01-19 23:23 | PC.NURSE ---
Patient's urostomy bag is empty and bed linens are soaked. Bed linens changed. urostomy appears sealed. unable to determine where leakage has occurred. Consulted with lead nurse, who also came to bedside and examined ostomy appliance.
[2022-01-20] VITALS (14 sets, daily range): BP systolic 127–156; BP diastolic 61–75; PULSE 55–83; RESP 15–20; TEMP 36.4–37; O2SAT 18–98
[2022-01-20] MEDS: oxyCODONE 5 mg IR Tab/Cap PO ×2 (03:21→09:33)
[2022-01-20 04:44] LABS: Alanine Aminotransferase 46 U/L (0-33); Albumin Level 2.5 g/dL (3.5-5.2); Alkaline Phosphatase 145 U/L (35-105); Anion Gap 13.1 (5-19); Aspartate Amino Transferase 45 U/L (0-32); Blood Urea Nitrogen 38 mg/dL (8-23); Calcium 7.1 mg/dL (8.5-10.5); Carbon Dioxide 22 mmol/L (22-29); Chloride 107 mmol/L (98-107); Globulin 2.6 g/dL (1.3-4.6); Glomerular Filtration Rate 18.4 mL/min (90-130); Glucose 143 mg/dL (65-115); Osmolality Calculated 300 mOsm/kg (285-295); Potassium 3.1 mmol/L (3.5-5.1); Sodium 139 mmol/L (136-145); Total Bilirubin 0.2 mg/dL (0.15-1.2); Total Protein 5.1 g/dL (6.6-8.7)
[2022-01-20] MEDS: TRAMadol 50 mg Tablet PO ×2 (05:28→14:25)
[2022-01-20 06:35] LABS: Glucose Point of Care 115 mg/dL (70-110)
[2022-01-20 06:35] LABS: Glucose Point of Care 115 mg/dL (70-110)
[2022-01-20] MEDS: cefTRIAXone 1,000 MG in sodium chloride 0.9% (plus) 50 ML 100 MG IV (09:32)
[2022-01-20] MEDS: thiamine 100 mg Tablet 50 MG PO (09:32)
[2022-01-20] MEDS: multivitamin therapeutic Tablet 1 TAB PO (09:32)
[2022-01-20] MEDS: pantoprazole 40 mg SDV IVP (09:32)
[2022-01-20 11:00] LABS: Glucose Point of Care 161 mg/dL (70-110)
--- NOTE | 2022-01-20 13:21 | PM.PN ---
Subjective Subjective: Patient continues to do better. Today morning he came awake and multiple family members bedside. Hungry. Working well with physical therapy. Appropriate urine output. Has remained hemodynamically stable and afebrile. Vitals/I&O/Wt Last Vital Signs Temp 98.3 F 01/20/22 11:35 Pulse 62 01/20/22 11:35 Resp 15 01/20/22 11:35 BP 133/61 01/20/22 11:35 Pulse Ox 95 01/20/22 11:35 O2 Del Method 01/20/22 11:35 O2 Flow Rate 1 01/20/22 08:48 01/19/22 01/20/22 01/20/22 22:59 06:59 14:59 Intake Total 1240 / 2165 1050 / 1050 Output Total 1060 / 1560 370 / 1930 Balance 180 / 605 -370 / 235 1050 / 1050 Weight last 48 hrs Weight 47.174 kg Weight 47.627 kg Physical Exam Narrative: General: Chronically sick appearing, awake and alert today. Not lethargic. Having complete conversation. HEENT: PERRLA, pupils bilaterally equal and reactive. Less dry conjunctiva Chest: Normal vesicular breath sounds, no added sounds, equal good air entry bilaterally CVS: S1-S2 regular, no murmurs, no tachycardia, no gallops, no rubs Abdomen: Soft, nontender, ileostomy and colostomy in place Neuro: No focal deficit, moving all limbs. Data : 01/19/22 04:40 01/20/22 03:27 Micro: Microbiology 01/15/22 23:35 Blood Culture - Preliminary Blood Providencia rettgeri A&P Assessment and plan (1) Gram-negative bacteremia: (2) Sepsis: (3) LORRI (acute kidney injury): (4) Pneumonia: (5) Metabolic acidosis: (6) Hydronephrosis: (7) Rhabdomyolysis: (8) Rib fracture: (9) Goals of care, counseling/discussion: (10) Chronic pain: (11) Severe protein-energy malnutrition: (12) Physical deconditioning: Plan 59-year-old female with past medical history of vulvar cancer, with urostomy and colostomy in place, fibromyalgia on pain medication with possibility of pain medication seeking behavior as an outpatient as per PCPs note brought into the ER after being found down for unknown amount of time and found to be with rib fracture, pneumonia, possible lung contusion, rhabdomyolysis with severe metabolic acidosis and acute kidney injury. As per family members patient would not want any invasive aggressive treatment. Gram-negative bacteremia: Blood cultures positive for procidentia Urine culture positive for E. coli and Klebsiella. All bacteria sensitive with ceftriaxone. Continue ceftriaxone. We will plan to finish antibiotic course for overall 14 days given gram-negative bacteremia. We will plan to discharge on oral Levaquin as per creatinine clearance as per sensitivities of all bacteria. Severe metabolic acidosis/acute renal failure: Most likely secondary to rhabdomyolysis and acute renal failure. Resolved. Family not agreeable for dialysis. Creatinine continues to trend down. Repeat CMP daily. Decrease fluid to D5W at 75 cc/h. As per oral intake we will plan to stop fluids in the next 24 hours. Medical reconciliation done for nephrotoxic drugs. Replete electrolytes as needed. Altered mental status: Metabolic encephalopathy: Most likely secondary to severe metabolic acidosis. Resolved. Most likely secondary to sepsis and electrolyte and metabolic abnormalities on admission. Withheld alcohol level pending. CT head negative for any stroke. Thrombocytopenia: Awaiting heparin thrombocytopenic panel. Continue to monitor. Continue to hold off on therapeutic DVT prophylaxis. Continue with SCDs. Pain regimen: Patient is supposed to be on oxycodone 20 mg extended release 3 times a day as an outpatient. Multiple documentations done by PCP stating that patient is requesting for more pain medications. I believe 20 mg 3 times a day is high-dose for the patient and was one of the leading factors of her presentation. For now continue with oxycodone 7.5 mg every 6 hours as needed. Tramadol 50 mg every 6 hours as needed. Patient should be discharged on lower pain medications on discharge. Should have a follow-up with pain management on discharge. Physical therapy. Advance diet as per swallow evaluation and speech therapy. Rib fracture : likely from unwitnessed fall with underlyg pulmonary contusion and secondary pneumonia. Abx as above. Spirometry once mental status improved Rhabdoyolysis : IV hydration as above Elevated troponins : Most likely type II FL. Most likely secondary to type II FL. Echocardiogram ruled out regional wall motion abnormality. Normal EF. Start ASA rectally. will add a/c if significant delta trend or echo with RWMA. CODE status: DNR/DNI: No aggressive treatment. Discussed in detail with patient's DPOA including son, daughter and sister at bedside. Do not want dialysis. DVT ppx: lovenox 40 s/c GI ppx: protonix 40mg IV Analgesia: Tylenol as needed. Morphine 1 mg IV every 6 hours as needed Glycemic control: Hypoglycemia protocol Nutrition: To be advanced as per swallow evaluation. Advance to mechanical soft for now. Discharge planning: Home with home health versus SNF placement. Physical therapy evaluation. Continue care at [facility] floor. Care discussed in detail with patient's sister at bedside. All the questions were answered. This documentation was created by [employer] reed worker software. Every effort was made to ensure accuracy of reed worker. Any obvious errors or omissions should be clarified with the author of the document. Attestations Medical Necessity Statement*: Requires further hospitalization for management of gram-negative bacteremia, UTI leading to altered mental status from severe metabolic acidosis, acute kidney injury which seems to be resolving now while safe discharge planning is sought. 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
[2022-01-20] MEDS: dextrose 5% 1,000 ML 50 ML IV (14:25)
[2022-01-20] MEDS: oxyCODONE 5 mg IR Tab/Cap 7.5 MG PO ×2 (15:10→21:04)
[2022-01-20] MEDS: tizanidine 4 mg Tablet 2 MG PO (15:14)
[2022-01-20 16:52] LABS: Glucose Point of Care 171 mg/dL (70-110)
[2022-01-20 21:05] LABS: Glucose Point of Care 125 mg/dL (70-110)
[2022-01-21] VITALS (11 sets, daily range): BP systolic 118–150; BP diastolic 70–81; PULSE 60–89; RESP 14–18; TEMP 36.6–36.8; O2SAT 95–98
[2022-01-21] MEDS: TRAMadol 50 mg Tablet PO ×2 (02:27→16:29)
[2022-01-21] MEDS: dextrose 5% 1,000 ML 100 ML IV (03:12)
[2022-01-21 04:42] LABS: Alanine Aminotransferase 46 U/L (0-33); Albumin Level 2.5 g/dL (3.5-5.2); Alkaline Phosphatase 164 U/L (35-105); Anion Gap 11.6 (5-19); Aspartate Amino Transferase 39 U/L (0-32); Blood Urea Nitrogen 31 mg/dL (8-23); Calcium 7.1 mg/dL (8.5-10.5); Carbon Dioxide 23 mmol/L (22-29); Chloride 107 mmol/L (98-107); Globulin 2.8 g/dL (1.3-4.6); Glomerular Filtration Rate 21.2 mL/min (90-130); Glucose 149 mg/dL (65-115); Osmolality Calculated 295 mOsm/kg (285-295); Potassium 3.6 mmol/L (3.5-5.1); Sodium 138 mmol/L (136-145); Total Bilirubin 0.2 mg/dL (0.15-1.2); Total Protein 5.3 g/dL (6.6-8.7)
[2022-01-21] MEDS: oxyCODONE 5 mg IR Tab/Cap 7.5 MG PO ×3 (06:14→20:44)
[2022-01-21 06:45] LABS: Glucose Point of Care 132 mg/dL (70-110)
[2022-01-21] MEDS: pantoprazole 40 mg SDV IVP (08:24)
[2022-01-21] MEDS: thiamine 100 mg Tablet 50 MG PO (08:48)
[2022-01-21] MEDS: multivitamin therapeutic Tablet 1 TAB PO (08:48)
[2022-01-21] MEDS: cefTRIAXone 1,000 MG in sodium chloride 0.9% (plus) 50 ML 100 MG IV (08:49)
[2022-01-21 11:39] LABS: Glucose Point of Care 146 mg/dL (70-110)
--- NOTE | 2022-01-21 12:56 | PM.PN ---
Subjective Subjective: No acute events overnight. Patient continues to work well with physical therapy. Appetite continues to improve. Good urine output. Family at bedside. Vitals/I&O/Wt Last Vital Signs Temp 98.1 F 01/21/22 11:54 Pulse 64 01/21/22 11:54 Resp 17 01/21/22 11:54 BP 150/76 01/21/22 11:54 Pulse Ox 95 01/21/22 11:54 O2 Del Method 01/21/22 11:54 O2 Flow Rate 1 01/20/22 08:48 01/20/22 01/21/22 01/21/22 22:59 06:59 14:59 Intake Total 1599.167 / 2889.167 168 / 168 Output Total 1300 / 1300 1600 / 2900 250 / 250 Balance -1300 / -10 -0.833 / -10.833 -82 / -82 Weight last 48 hrs Weight 44.5 kg Weight 47.174 kg Physical Exam Narrative: General: Chronically sick appearing, awake and alert today. Not lethargic. Having complete conversation. HEENT: PERRLA, pupils bilaterally equal and reactive. Less dry conjunctiva Chest: Normal vesicular breath sounds, no added sounds, equal good air entry bilaterally CVS: S1-S2 regular, no murmurs, no tachycardia, no gallops, no rubs Abdomen: Soft, nontender, ileostomy and colostomy in place Neuro: No focal deficit, moving all limbs. Data : 01/19/22 04:40 01/21/22 03:52 Micro: Microbiology 01/15/22 23:35 Blood Culture - Final Blood NO GROWTH AFTER 5 DAYS A&P Assessment and plan (1) Gram-negative bacteremia: (2) Sepsis: (3) LORRI (acute kidney injury): (4) Pneumonia: (5) Metabolic acidosis: (6) Hydronephrosis: (7) Rhabdomyolysis: (8) Rib fracture: (9) Goals of care, counseling/discussion: (10) Chronic pain: (11) Severe protein-energy malnutrition: (12) Physical deconditioning: Plan 59-year-old female with past medical history of vulvar cancer, with urostomy and colostomy in place, fibromyalgia on pain medication with possibility of pain medication seeking behavior as an outpatient as per PCPs note brought into the ER after being found down for unknown amount of time and found to be with rib fracture, pneumonia, possible lung contusion, rhabdomyolysis with severe metabolic acidosis and acute kidney injury. As per family members patient would not want any invasive aggressive treatment. Gram-negative bacteremia: Blood cultures positive for procidentia Urine culture positive for E. coli and Klebsiella. All bacteria sensitive with ceftriaxone. Continue ceftriaxone. We will plan to finish antibiotic course for overall 14 days given gram-negative bacteremia. We will plan to discharge on oral Levaquin as per creatinine clearance as per sensitivities of all bacteria. Severe metabolic acidosis/acute renal failure: Most likely secondary to rhabdomyolysis and acute renal failure. Resolved. Family not agreeable for dialysis. Creatinine continues to trend down. Repeat CMP daily. Decrease fluid to D5W at 75 cc/h. As per oral intake we will plan to stop fluids in the next 24 hours. Medical reconciliation done for nephrotoxic drugs. Replete electrolytes as needed. Altered mental status: Metabolic encephalopathy: Most likely secondary to severe metabolic acidosis. Resolved. Most likely secondary to sepsis and electrolyte and metabolic abnormalities on admission. Withheld alcohol level pending. CT head negative for any stroke. Thrombocytopenia: Awaiting heparin thrombocytopenic panel. Continue to monitor. Continue to hold off on therapeutic DVT prophylaxis. Continue with SCDs. Pain regimen: Patient is supposed to be on oxycodone 20 mg extended release 3 times a day as an outpatient. Multiple documentations done by PCP stating that patient is requesting for more pain medications. I believe 20 mg 3 times a day is high-dose for the patient and was one of the leading factors of her presentation. For now continue with oxycodone 7.5 mg every 6 hours as needed. Tramadol 50 mg every 6 hours as needed. Patient should be discharged on lower pain medications on discharge. Should have a follow-up with pain management on discharge. Physical therapy. Advance diet as per swallow evaluation and speech therapy. Rib fracture : likely from unwitnessed fall with underlyg pulmonary contusion and secondary pneumonia. Abx as above. Spirometry once mental status improved Rhabdoyolysis : IV hydration as above Elevated troponins : Most likely type II HI. Most likely secondary to type II HI. Echocardiogram ruled out regional wall motion abnormality. Normal EF. Start ASA rectally. will add a/c if significant delta trend or echo with RWMA. CODE status: DNR/DNI: No aggressive treatment. Discussed in detail with patient's DPOA including son, daughter and sister at bedside. Do not want dialysis. DVT ppx: lovenox 40 s/c GI ppx: protonix 40mg IV Analgesia: Tylenol as needed. Morphine 1 mg IV every 6 hours as needed Glycemic control: Hypoglycemia protocol Nutrition: To be advanced as per swallow evaluation. Advance to mechanical soft for now. Discharge planning: Home with home health versus SNF placement. Physical therapy evaluation. Continue care at [facility] floor. Plan for the day: Stop IV fluids. Advance diet as per swallow evaluation. Otherwise continue soft mechanical diet. Continue with IV ceftriaxone. Can transition over to oral Levaquin as per creatinine clearance on discharge for remainder of the course to finish a 14 days overall. Continue with physical therapy. Continue with oxycodone 7.5 mg every 6 hourly as needed, tramadol 50 mg every 6 hourly as needed. On discharge patient should get a referral to see pain management. Patient is agreeable. Counseled patient in detail regarding possibly limiting the pain medication intake. Patient for now is agreeable. Care discussed in detail with patient's sister at bedside. All the questions were answered. This documentation was created by [employer] patient flow coordinator software. Every effort was made to ensure accuracy of patient flow coordinator. Any obvious errors or omissions should be clarified with the author of the document. Attestations Medical Necessity Statement*: Requires further hospitalization for management of gram-negative bacteremia leading to resolved severe metabolic acidosis, renal failure from rhabdomyolysis post fall in a patient who has severe physical deconditioning while safe discharge planning is sought. 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
[2022-01-21 16:56] LABS: Glucose Point of Care 146 mg/dL (70-110)
[2022-01-21 21:20] LABS: Glucose Point of Care 177 mg/dL (70-110)
[2022-01-21] MEDS: insulin lispro 100 unit/1 mL SUBCUT (21:39)
[2022-01-22] VITALS (10 sets, daily range): BP systolic 129–139; BP diastolic 69–73; PULSE 72–112; RESP 15–17; TEMP 36.4–36.9; O2SAT 97–98
[2022-01-22] MEDS: TRAMadol 50 mg Tablet PO (00:44)
[2022-01-22] MEDS: oxyCODONE 5 mg IR Tab/Cap 7.5 MG PO ×3 (03:15→15:22)
[2022-01-22] MEDS: dextrose 5% 1,000 ML 100 ML IV (04:35)
[2022-01-22 05:35] LABS: Basophils # 0.1 10^3/uL (0.0-0.1); Basophils % 0.5 %; Eosinophils # 0.3 10^3/uL (0.0-0.8); Hematocrit 31.5 % (37.0-47.0); Hemoglobin 9.6 g/dL (11.5-15.3); Lymphocytes # 1.7 10^3/uL (0.8-4.8); Lymphocytes % 16.6 %; Mean Corpuscular HGB Conc 30.5 g/dL (30.0-36.0); Mean Corpuscular Hemoglobin 29.4 pg (28.0-34.0); Mean Corpuscular Volume 96.3 fl (81-99); Monocytes # 0.9 10^3/uL (0.2-0.9); Monocytes % 9.1 %; Neutrophils # 6.99 10^3/uL (1.8-7.7); Neutrophils % 69.6 %; Nucleated Red Blood Cells % 0 %; Platelet Count 136 10^3/cmm (130-400); Red Blood Count 3.27 10^6/uL (4.1-5.3); Red Cell Distribution Width 15.7 % (12.1-15.1)
[2022-01-22 05:59] LABS: Alanine Aminotransferase 42 U/L (0-33); Albumin Level 2.4 g/dL (3.5-5.2); Alkaline Phosphatase 130 U/L (35-105); Anion Gap 11.4 (5-19); Aspartate Amino Transferase 29 U/L (0-32); Blood Urea Nitrogen 29 mg/dL (8-23); Calcium 7.4 mg/dL (8.5-10.5); Carbon Dioxide 21 mmol/L (22-29); Chloride 107 mmol/L (98-107); Globulin 2.8 g/dL (1.3-4.6); Glomerular Filtration Rate 26.4 mL/min (90-130); Glucose 99 mg/dL (65-115); Osmolality Calculated 286 mOsm/kg (285-295); Potassium 4.4 mmol/L (3.5-5.1); Sodium 135 mmol/L (136-145); Total Bilirubin 0.2 mg/dL (0.15-1.2); Total Protein 5.2 g/dL (6.6-8.7)
[2022-01-22 06:47] LABS: Glucose Point of Care 106 mg/dL (70-110)
[2022-01-22] MEDS: thiamine 100 mg Tablet 50 MG PO (09:16)
[2022-01-22] MEDS: cefTRIAXone 1,000 MG in sodium chloride 0.9% (plus) 50 ML 100 MG IV (09:19)
[2022-01-22] MEDS: multivitamin therapeutic Tablet 1 TAB PO (09:19)
[2022-01-22] MEDS: pantoprazole 40 mg SDV IVP (09:19)
[2022-01-22 11:55] LABS: Glucose Point of Care 98 mg/dL (70-110)
--- NOTE | 2022-01-22 16:19 | PM.DCS ---
Discharge Providers Date of Admission: 01/16/22 00:30 Date of Discharge: January 22, 2022 Attending Provider at Admission: Caitlyn Parry MD Attending Provider at Discharge: Son Godoy Diagnoses at Discharge Discharge Diagnosis (1) Gram-negative bacteremia: Status: Acute (2) Sepsis: Status: Acute (3) LORRI (acute kidney injury): Status: Acute (4) Pneumonia: Status: Acute (5) Metabolic acidosis: Status: Acute (6) Hydronephrosis: Status: Acute (7) Rhabdomyolysis: Status: Acute (8) Rib fracture: Status: Acute (9) Goals of care, counseling/discussion: Status: Acute (10) Chronic pain: Status: Acute (11) Severe protein-energy malnutrition: Status: Acute (12) Physical deconditioning: Status: Acute Reason for Visit Reason for Visit: FALL Hospital Course Hospital Course Pleasant 66-year-old lady with history of vulvar cancer, status post ileostomy, colostomy, urostomy, history of chemoradiation, now cancer free as of 2019, fibromyalgia, on chronic opioid, was found laying on kitchen floor on her right side, last known well sometime on Saturday before Saturday of admission. When found had altered mental status, lethargic, with labored breathing. With metabolic acidosis, rhabdomyolysis, LORRI, CT abdomen pelvis with rib fracture pulmonary contusion on the right side, possible pneumonia, noted staghorn calculus left kidney, right kidney nonobstructive calyceal stone, moderate right hydronephrosis and hydroureter without obstructive lesion. CT of the head nonacute. Right elbow x-ray without acute fracture. Soft tissue swelling. Right wrist x-ray Limited exam single view, no obvious displaced fracture. With sepsis on presentation with leukocytosis, low-grade fever up to 100.6, metabolic acidosis, signs of endorgan dysfunction with LORRI, metabolic encephalopathy, source related to pneumonia versus complicated UTI, empirically treated with Zosyn, vancomycin. Incentive spirometer. Received IV fluids. Blood cultures from 10/15 eventually growing Providencia rettgeri resistant to multiple antibiotics, cultures still preliminary, may have another gram-negative wojciech organism. Urine culture eventually growing Klebsiella oxytoca resistant to ampicillin and pansensitive E. coli. MRSA PCR negative. Repeat blood culture 01/17 final without growth. With treatment of urinary tract infection, possible pneumonia, IV fluid rehydration and treatment for rhabdomyolysis metabolic acidosis had improved. Sepsis resolved. Acute kidney injury has been gradually improving, creatinine currently down to 1.9 from initial 4.2. Acute encephalopathy resolved. On presentation noted moderate elevation of troponins up to 125.6, although without clear upward trend. Echocardiogram was obtained and with normal ejection fraction, normal diastolic function, no regional wall motion abnormalities. She continues on aspirin. Changes thought to be secondary to demand ischemia with overall medical condition presentation, however, underlying CAD not excluded. She is referred for additional risk stratification with stress test. Consider addition of statin once rhabdomyolysis no longer concern. Beta-immanuel not initiated due to resting bradycardia in the 50s. With chronic pain and on chronic opioid, concern is also that opiate contributed to her mental status change, possibly also with fluctuating renal function. While in the hospital. Was de-escalated down to 7.5 mg 4 times daily as needed oxycodone, 50 mg tramadol as needed 4 times daily. She is asked to de-escalate as possible off opioids. Naloxone prescriptions provided in case of overdose. Please reassess renal function, continue optimization of management of chronic pain. She is asked to follow-up with pain management clinic. Transient thrombocytopenia was noted in the hospital, likely due to acute infection with platelets dipping down to as low as 92,000, have been so far recovering up 236,000. Please reassess blood counts. She is asked to follow-up with urology with regards to left-sided staghorn calculus, right side nonobstructing calyceal stone and urinary tract infection. She will complete total 14 days antibiotic. So far culture appears to be mixed without necessarily indication of stone infection, however, this may need to be consideration in case of persistent or recurrent infection. Home health is requested for reassessment and continued therapy due to physical deconditioning. Physical Exam Const: COMMON NORMALS: alert GENERAL APPEARANCE: cooperative ORIENTATION/CONSCIOUSNESS: Yes awake HENMT: COMMON NORMALS: oropharynx normal Neck/C-Spine: COMMON NORMALS: no JVD Resp: COMMON NORMALS: normal respiratory effort and clear to auscultation bilaterally AUSCULTATION: clear to auscultation bilaterally Cardio: COMMON NORMALS: no JVD, regular rhythm, S1 normal heart sound present, S2 normal heart sound present and No murmurs present (Cardio) RHYTHM: regular rhythm HEART SOUNDS: S1 normal heart sound present and S2 normal heart sound present GI: COMMON NORMALS: Normal to inspection, nondistended, normoactive bowel sounds present, Soft to palpation and non-tender PALPATION: Yes Soft to palpation Extremity: COMMON NORMALS: no joint enlargement and no pedal edema Neuro: COMMON NORMALS: moves all extremities SENSORIUM/ORIENTATION: Yes alert Skin: COMMON NORMALS: no rashes or lesions noted GENERAL SKIN EXAM: no rashes or lesions noted Discharge Data Studies Completed and Pending Completed Studies During Hospitalization Category Date Time Status CT cervical spin wo con* [id number] Stat Cat Scan 01/15/22 21:[address] chest abdomen pelvis [[place] [id number] Cat Scan 01/15/22 22:01 Completed ] Stat CT head wo con* [id number] Stat Cat Scan 01/15/22 21:57 Completed XR chest 1V portable [id number] Stat Exams 01/15/22 21:57 Completed XR elbow RT 2V [id number] Routine Exams 01/19/22 12:48 Completed XR wrist RT 1V [id number] Routine Exams 01/19/22 12:48 Completed CV. echo complete* [id number] Routine Ultrasound 01/16/22 00:35 Completed Pending at discharge Category Date Time Status Blood Culture Stat Lab 01/15/22 23:35 Results Heparin Induced Thrombocytopen Routine Lab 01/19/22 14:24 Received Sputum Culture and Gram Stain Routine Lab 01/18/22 17:40 Ordered Vitamin D 1,25 Dihydroxy Routine Lab 01/18/22 04:30 Received Radiology Impressions Cervical Spine CT 01/15/22 21:57 IMPRESSION: 1. Status post anterior interbody fusion C5 through C7. Visualized hardware appears intact, and fusions appear solid. 2. No acute abnormality of the cervical spine demonstrated. Chest X-Ray 01/15/22 21:57 IMPRESSION: 1. Dense opacification with surrounding ground-glass opacity in the lateral right upper and middle lobes. Findings are mostly suspicious for a right-sided pneumonia. Possible pulmonary contusion cannot be completely ruled out given recent trauma history. Recommend clinical correlation. CT scan of the chest may be obtained for further evaluation if it will change clinical management. Also recommend followup chest imaging after treatment to insure resolution of these findings. 2. No acute fracture. 3. Incidental/nonacute findings are listed in the report. COMMENTS: Urgent results were discussed with CLEVE Knott on 01/15/2022 at 11:[address] 01/15/22 21:57 IMPRESSION: No acute intracranial abnormality demonstrated. Chest/Abdomen/Pelvis CT 01/15/22 22:01 IMPRESSION: 1. Right lung peripheral diffuse airspace opacification suggestive of a pulmonary contusion given history of trauma. 2. Cardiomegaly. 3. Coronary artery atherosclerotic calcifications. 4. Right 3rd and 4th lateral possible rib fractures versus motion artifact. IMPRESSION: 1. Negative for traumatic injury to the abdomen or pelvis. 2. Cholecystectomy. 3. Left kidney staghorn type calculus without hydronephrosis. 4. Bilateral solitary simple renal cysts, negative for follow-up advised. 5. Right kidney nonobstructive calyceal stone. 6. Moderate right hydronephrosis and hydroureter without obstructing lesion seen. 7. Apparent multiple loops of bowel in the deep pelvis with a right-sided ostomy and left upper abdominal ostomy. 8. Urinary bladder may be absent, please correlate with history. COMMENTS: Consistent with the [employer]'s Incidental Findings Committee white paper (J Am Sydni Radiol 2018): Any incidental renal lesion less than 1 cm or classified as too small to characterize, or any incidental cystic renal lesion characterized as simple-appearing, is likely benign. No follow-up imaging is recommended for these lesions per consensus recommendations based on imaging criteria. Elbow X-Ray 01/19/22 12:48 IMPRESSION: No acute fracture. Other findings as above. Wrist X-Ray 01/19/22 12:48 IMPRESSION: 1. Very limited exam with single view. Additional views should be obtained if clinically indicated. 2. No obvious acute displaced fracture. Other findings as above. Laboratory Results WBC 10.0 10^3/uL (4.0-10.0) 01/22/22 04:51 RBC 3.27 10^6/uL (4.1-5.3) L 01/22/22 04:51 Hgb 9.6 g/dL (11.5-15.3) L 01/22/22 04:51 Hct 31.5 % (37.0-47.0) L 01/22/22 04:51 MCV 96.3 fl (81-99) 01/22/22 04:51 MCH 29.4 pg (28.0-34.0) 01/22/22 04:51 MCHC 30.5 g/dL (30.0-36.0) 01/22/22 04:51 RDW 15.7 % (12.1-15.1) H 01/22/22 04:51 Plt Count 136 10^3/cmm (130-400) 01/22/22 04:51 MPV 11.0 fL (7.4-10.4) H 01/22/22 04:51 Neut % (Auto) 69.6 % 01/22/22 04:51 Lymph % (Auto) 16.6 % 01/22/22 04:51 Centre % (Auto) 9.1 % 01/22/22 04:51 Eos % (Auto) 3.0 % 01/22/22 04:51 Baso % (Auto) 0.5 % 01/22/22 04:51 Neut # (Auto) 6.99 10^3/uL (1.8-7.7) 01/22/22 04:51 Lymph # (Auto) 1.7 10^3/uL (0.8-4.8) 01/22/22 04:51 Centre # (Auto) 0.9 10^3/uL (0.2-0.9) 01/22/22 04:51 Eos # (Auto) 0.3 10^3/uL (0.0-0.8) 01/22/22 04:51 Baso # (Auto) 0.1 10^3/uL (0.0-0.1) 01/22/22 04:51 Nucleated RBC % (auto) 0 % 01/22/22 04:51 Nucleated RBCs # 0.0 /100WBC 01/22/22 04:51 PT 15.40 SECONDS (12.1-14.9) H 01/15/22 22:27 INR 1.19 (0.8-1.2) 01/15/22 22:27 Specimen Type Arterial 01/15/22 23:21 Sample Site Brachial, left 01/15/22 23:21 ABG pH 6.75 (7.35-7.45) L* 01/15/22 23:21 ABG pCO2 19.1 mmHg (35-45) L* 01/15/22 23:21 ABG pO2 110.0 mmHg (80.0-100.0) H 01/15/22 23:21 ABG HCO3 2.6 mmol/L (22-26) L 01/15/22 23:21 ABG Base Excess -32.1 mmol/L (-2.0-2.0) L 01/15/22 23:21 Blane Test Pos 01/15/22 23:21 Hematocrit 40.6 % (37-47) 01/15/22 23:21 O2 Delivery Device Room air 01/15/22 23:21 FiO2 21.0 % 01/15/22 23:21 Office Support ID Shiraro 01/15/22 23:21 Sodium 135 mmol/L (136-145) L 01/22/22 04:51 Potassium 4.4 mmol/L (3.5-5.1) 01/22/22 04:51 Chloride 107 mmol/L (98-107) 01/22/22 04:51 Carbon Dioxide 21 mmol/L (22-29) L 01/22/22 04:51 Anion Gap 11.4 (5-19) 01/22/22 04:51 BUN 29 mg/dL (8-23) H 01/22/22 04:51 Creatinine 1.9 mg/dL (0.5-0.9) H 01/22/22 04:51 GFR Calculation 26.4 mL/min (90-130) L 01/22/22 04:51 Glucose 99 mg/dL (65-115) 01/22/22 04:51 POC Glucose 98 mg/dL (70-110) 01/22/22 11:53 Calculated Osmolality 286 mOsm/kg (285-295) 01/22/22 04:51 Lactate 1.5 mmol/L (0.5-2.2) 01/15/22 22:03 Calcium 7.4 mg/dL (8.5-10.5) L 01/22/22 04:51 Magnesium 1.7 mg/dL (1.7-2.3) 01/18/22 04:30 Total Bilirubin 0.2 mg/dL (0.15-1.2) 01/22/22 04:51 AST 29 U/L (0-32) 01/22/22 04:51 ALT 42 U/L (0-33) H 01/22/22 04:51 Alkaline Phosphatase 130 U/L (35-105) H 01/22/22 04:51 Creatine Kinase 1385 U/L (26-192) H* 01/17/22 10:08 Troponin T Baseline 118 ng/L (0-10) H* 01/15/22 22:37 Troponin T 120 Minute 107.3 ng/L (0-10) H 01/16/22 01:24 Delta Troponin T -10.7 ABS# (0-10) L 01/16/22 01:24 Troponin T Hi Sens 6Hr 125.6 ng/L (0-10) H 01/16/22 03:47 Troponin T Hi Sens 6Hr Delta 7.6 ng/L (0-12) 01/16/22 03:47 Total Protein 5.2 g/dL (6.6-8.7) L 01/22/22 04:51 Albumin 2.4 g/dL (3.5-5.2) L 01/22/22 04:51 Globulin 2.8 g/dL (1.3-4.6) 01/22/22 04:51 25-OH Vitamin D Total 12 ng/mL (30-100) L 01/18/22 04:30 TSH 0.80 uIU/mL (0.27-4.20) 01/16/22 01:24 PTH Intact 189.6 pg/mL (15-65) H 01/18/22 04:30 Calcium (PTH Intact) 6.4 mg/dL (8.5-10.5) L 01/18/22 04:30 Urine Color Leonie (Yellow) 01/16/22 01:08 Urine Appearance Cloudy (CLEAR) 01/16/22 01:08 Urine pH 7.0 (5-7) 01/16/22 01:08 Ur Specific [place] 1.020 (1.005-1.030) 01/16/22 01:08 Urine Protein 2+ (Negative) A 01/16/22 01:08 Urine Glucose (UA) Negative (Normal) 01/16/22 01:08 Urine Ketones Negative (Negative) 01/16/22 01:08 Urine Blood Large (Negative) A 01/16/22 01:08 Urine Nitrate Negative 01/16/22 01:08 Urine Bilirubin Negative (Negative) 01/16/22 01:08 Urine Urobilinogen 0.2 mg/dL (Negative) 01/16/22 01:08 Ur Leukocyte Esterase 3+ (Negative) A 01/16/22 01:08 Urine RBC Too numerous to cnt /hpf (0-2) H 01/16/22 01:08 Urine WBC Too numerous to cnt /hpf (0-5) H 01/16/22 01:08 Ur Squamous Epith Cells 0-4 /hpf (0-5) H 01/16/22 01:08 Amorphous Sediment Not Reportable 01/16/22 01:08 Urine Bacteria 3+ /hpf (NONE) H 01/16/22 01:08 Random Vancomycin 9.5 ug/mL (20.0-40.0) L 01/18/22 04:30 Salicylates < 0.3 mg/dL (3-10) L 01/16/22 01:24 Urine Opiates Screen Negative ng/mL (Negative) 01/16/22 01:08 Acetaminophen < 5.0 ug/mL (10-30) L 01/16/22 01:24 Ur Barbiturates Screen Negative ng/mL (Negative) 01/16/22 01:08 Ur Phencyclidine Scrn Negative ng/mL (Negative) 01/16/22 01:08 Ur Amphetamines Screen Negative ng/mL (Negative) 01/16/22 01:08 U Benzodiazepines Scrn Negative ng/mL (Negative) 01/16/22 01:08 Urine Cocaine Screen Negative ng/mL (Negative) 01/16/22 01:08 U Marijuana (THC) Screen Negative ng/mL (Negative) 01/16/22 01:08 Volat Analys Perform On Whole blood 01/16/22 01:24 Ethyl Alcohol < 10 mg/dL (0-10) 01/16/22 01:24 Methyl Alcohol Level None detected mg/dL (NONE DETECTED) 01/16/22 01:24 SARS-CoV-2 Ag (Rapid) Negative (Negative) 01/16/22 01:08 Vitals Last Vital Signs Temp 98.2 F 01/22/22 11:55 Pulse 112 H 01/22/22 14:00 Resp 16 01/22/22 15:36 BP 129/72 01/22/22 11:55 Pulse Ox 98 01/22/22 11:55 O2 Del Method 01/22/22 11:55 O2 Flow Rate 1 01/20/22 08:48 Discharge Plan Discharge Patient Disposition: Home Health Service Condition: Stable Prescriptions: New tizanidine 2 mg tablet 2 mg PO Q8H PRN (Reason: muscle spasticity) Qty: 60 0RF Isopto Tears 0.5 % Drops 1 drp eye-both Q4H PRN (Reason: Dry Eye(S)) Qty: 15 0RF levofloxacin 750 mg tablet 750 mg PO EVERY OTHER DAY 7 Days Qty: 4 0RF Lanolin (HPA) 100 % Cream 1 applic topical PRN PRN (Reason: Dryness) Qty: 21 0RF tramadol 50 mg Tablet 50 mg PO Q6H PRN (Reason: Moderate Pain) Qty: 28 0RF oxycodone 5 mg Tablet 7.5 mg PO Q6H PRN (Reason: Moderate Pain) Qty: 84 0RF Adult Low Dose Aspirin 81 mg tablet,delayed release (DR/EC) 81 mg PO DAILY Qty: 90 0RF Narcan 4 mg/actuation spray,non-aerosol 1 spray intranasal Q2M PRN (Reason: opioid overdose) Qty: 2 0RF Rx Instructions: spray 1 dose into ONE nostril; alternate nostrils w each dose until help arrives Discontinued tizanidine 4 mg tablet 4 mg PO Q8H PRN (Reason: Pain) Qty: 90 2RF oxycodone [OxyContin] 20 mg tablet,oral only,ext.rel.12 hr 20 mg PO TID 30 Days Qty: 90 0RF Discharge Orders: Discharge Order (Routine); Ordered 01/22/22 Ordered By: Son Godoy Other Ambulatory Orders: Sestamibi Stress Test Request (Routine) Timeframe: 1 Week Facility: [facility] - Location: Cardiac Diagnostic Laboratory Ordered By: Son Godoy DME: [facility] (Order) Location: None Selected Ordered By: Son Godoy Referrals: [facility] Home Care ([facility]) [Outside] Alexandre Edwards DO [Physician] - 01/25/22 8:30 am Moustapha Lake MD [Physician] - 1 week (Pain management will call tomorrow with appointment information. ) Discharge Diet: As Directed Discharge Activity: Increase activity as tolerated and As per PT/OT instructions Patient Instructions: Levofloxacin (By mouth), Naloxone (Into the nose), Acute Kidney Injury (GEN), Kidney Stones (GEN), Rib Fracture (GEN), Rhabdomyolysis (GEN), Chronic Pain (GEN), Narcotic Safety (GEN), Urinary Tract Infection in Older Adults (GEN), Aspiration Precautions (GEN), Opioid Safety Activity Restrictions/Additional Instructions: Complete antibiotic course for urinary tract infection, please follow-up with urology regarding urinary tract infection, as well as staghorn kidney stones, discuss concern regarding possibility of stone infection, although so far cultures have been mixed. Please have your primary doctor follow-up renal function, reassess for improvement of acute kidney injury. Avoid any nephrotoxins, especially NSAIDs. Please reduce pain medication intake given risk of overdose especially with fluctuating kidney function. Medications have been reduced in dose to the way you are taking them in the hospital. Please discontinue any prior medications, currently continue oxycodone 7.5 mg as needed up to 4 times a day, tramadol 50 mg as needed up to 4 times a day. Please follow-up with your primary doctor, follow-up with pain clinic for close monitoring due to chronic pain. Please instruct your family and/or friends on use of intranasal Narcan in case of overdose. Please have your primary doctor reassess platelet counts for continued improvement after decreased platelet levels due to infection. Please continue aspiration precautions, maintain dysphagia level 5 diet with minced and moist foods. Add protein shakes to meals. Follow-up with your primary doctor for assessment of malnutrition. Please continue incentive spirometry at home due to rib fracture, possible lung contusion. Follow-up with your primary doctor for reassessment. Once out of acute illness, please follow-up with stress test due to noted moderate troponin abnormality with infection for additional assessment for coronary artery disease. Please follow-up with your primary doctor with results. Discharge Attestations Time Spent in Discharge Care*: greater than 30 min Quality Metrics Clinical Quality Measures [ No reported AMI, CVA or VTE this stay] Coding Level of Care Code Acute [facility] note Diagnoses Gram-negative bacteremia R78.81 Sepsis A41.9 LORRI (acute kidney injury) N17.9 Pneumonia J18.9 Metabolic acidosis E87.20 Hydronephrosis N13.30 Rhabdomyolysis M62.82 Rib fracture S22.39XA Goals of care, counseling/discussion Z71.89 Chronic pain G89.29 Severe protein-energy malnutrition E43 Physical deconditioning R53.81
[2022-01-23 14:47] LABS: Vit D 1,25 (Oh)2, Total 20 pg/mL (18-72); Vit D2 1,25 (Oh)2 <8 pg/mL; Vit D3 1,25 (Oh)2 20 pg/mL
[2022-01-24 05:47] LABS: Heparin Induced Platelet AB NEGATIVE (NEGATIVE); Patient O.D 0.045
[2022-01-26 03:08] LABS: UFH High Dose, 100 IU/ML 0 % release; UFH Low Dose, 0.1 IU/ML 0 % release; UFH Low Dose, 0.5 IU/ML 0 % release; UFH SRA Result NEGATIVE (NEGATIVE)
== END 2022-01-22 16:42 | disposition home health service (06) | DRG 871 ==
LOC: ER 01-16 00:20 → ER IP 01-16 00:47 → ICU 01-16 03:10 → MEDSURG 01-17 20:23
PROVIDERS: Student in an Organized Health Care Education/Training Program; Admitting Provider Student in an Organized Health Care Education/Training Program; Emergency Provider Emergency Medicine; Visit Provider Internal Medicine
DX: A41.9 Sepsis, unspecified organism (principal); E43 Unspecified severe protein-calorie malnutrition; J18.9 Pneumonia, unspecified organism; G93.41 Metabolic encephalopathy; S22.41XA Multiple fractures of ribs, right side, initial encounter for closed fracture; M62.82 Rhabdomyolysis; N39.0 Urinary tract infection, site not specified; Z16.11 Resistance to penicillins; E87.20 Acidosis, unspecified; N13.2 Hydronephrosis with renal and ureteral calculous obstruction; N17.9 Acute kidney failure, unspecified; I24.8 Other forms of acute ischemic heart disease; Z68.1 Body mass index [BMI] 19.9 or less, adult; S27.321A Contusion of lung, unilateral, initial encounter; W18.30XA Fall on same level, unspecified, initial encounter; B96.1 Klebsiella pneumoniae [K. pneumoniae] as the cause of diseases classified elsewhere; B96.20 Unspecified Escherichia coli [E. coli] as the cause of diseases classified elsewhere; Z98.1 Arthrodesis status; Z85.44 Personal history of malignant neoplasm of other female genital organs; Z93.2 Ileostomy status; Z93.3 Colostomy status; G89.29 Other chronic pain; F63.3 Trichotillomania; D69.6 Thrombocytopenia, unspecified; Z66 Do not resuscitate; E86.0 Dehydration
CPT/HCPCS: 36415; 36416; 36600; 70450; 71045; 71250; 72125; 73070; 73100; 74176; 80053; 80202; 80306; 80307; 80320; 81001; 82306; 82310; 82550; 82652; 82803; 82962; 83605; 83735; 83970; 84443; 84484; 85025; 85610; 87040; 87077; 87086; 87186; 87205; 87426; 87641; 92523; 92526; 92610; 93005; 93306; 94760; 96365; 96366; 96367; 96372; 96375; 97110; 97116; 97161; 97530; 99285; C9113; J0696; J1170; J1650; J1815; J1940; J2270; J2405; J2543; J3370; J3411; J3480; J3490; J7050

== ENCOUNTER 2022-02-05 18:28 | Inpatient (IN) | payer MEDICARE, MEDICAID, SELFPAY ==
[2022-02-05 18:47] VITALS: BMI 12.4
[2022-02-05 18:52] VITALS: BP 144/89; PULSE 73; RESP 16; TEMP 36.1; O2SAT 100
[2022-02-05 19:12] LABS: Basophils # 0.1 10^3/uL (0.0-0.1); Basophils % 0.8 %; Eosinophils % 0.2 %; Hemoglobin 11.9 g/dL (11.5-15.3); Mean Corpuscular HGB Conc 30.5 g/dL (30.0-36.0); Mean Corpuscular Hemoglobin 29.6 pg (28.0-34.0); Mean Platelet Volume 9.8 fL (7.4-10.4); Monocytes # 0.3 10^3/uL (0.2-0.9); Monocytes % 5.1 %; Neutrophils # 4.09 10^3/uL (1.8-7.7); Neutrophils % 62.6 %; Nucleated Red Blood Cells % 0 %; Platelet Count 311 10^3/cmm (130-400); Red Blood Count 4.02 10^6/uL (4.1-5.3); Red Cell Distribution Width 18.1 % (12.1-15.1); White Blood Count 6.5 10^3/uL (4.0-10.0)
[2022-02-05 19:29] LABS: Alanine Aminotransferase 12 U/L (0-33); Albumin Level 3.7 g/dL (3.5-5.2); Alkaline Phosphatase 267 U/L (35-105); Anion Gap 17.6 (5-19); Aspartate Amino Transferase 17 U/L (0-32); Blood Urea Nitrogen 23 mg/dL (8-23); Calcium 8.4 mg/dL (8.5-10.5); Carbon Dioxide 10 mmol/L (22-29); Chloride 106 mmol/L (98-107); Globulin 3.6 g/dL (1.3-4.6); Glomerular Filtration Rate 23.5 mL/min (90-130); Glucose 156 mg/dL (65-115); Osmolality Calculated 277 mOsm/kg (285-295); Potassium 3.6 mmol/L (3.5-5.1); Sodium 130 mmol/L (136-145); Total Bilirubin 0.2 mg/dL (0.15-1.2); Total Protein 7.3 g/dL (6.6-8.7)
--- NOTE | 2022-02-05 21:34 | W.ED.GENADLT ---
HPI - General Adult General: Chief complaint: General Medical Stated complaint: Possible dehydration Time Seen by Provider: 02/05/22 19:52 Source: patient Mode of arrival: ambulatory History of Present Illness: 66-year-old female states that her home health checked her today and felt like she is dehydrated and sent her to the ER states she has had some fatigue has not had much appetite and has not been eating much. Does have a history of cancer that is currently in remission she has had a urostomy and a colectomy. She denies any fever denies any diarrhea denies any pain. Associated symptoms: Reports nausea; Deny chest pain, dyspnea, headache(s) or rash Review of Systems Const: Reports: fatigue Eyes: Denies: blurry vision or eye discomfort ENMT: Denies: throat pain or dental pain Card: Denies: chest pain Resp: Denies: dyspnea GI: Reports: nausea : Denies: dysuria Musc: Denies: neck pain or back pain Skin/Breast: Denies: rash Neuro: Denies: headache(s) Psych: Denies: depression Bony/Lymph: Denies: easy bruising All/Imm: Denies: urticaria PFSH ED PFSH: Medical History Chronic diarrhea Chronic pain Colostomy in place DDD (degenerative disc disease) DJD (degenerative joint disease) of cervical spine Fatigue Fibromyalgia Hair loss History of cancer Pain medication contract needed Vulvar cancer Surgical History History of colostomy History of gastric bypass History of urostomy Social History Smoking and tobacco status: never smoked Alcohol intake: never Female Reproductive History: Spontaneous abortions: No Physical Exam Const: COMMON NORMALS: patient oriented x3 HENMT: COMMON NORMALS: normocephalic and atraumatic HEAD & SCALP: normocephalic and atraumatic Eye: COMMON NORMALS: Equal, round and reactive pupils present and EOMs intact bilaterally PUPIL: Yes Equal, round and reactive pupils present Neck/C-Spine: COMMON NORMALS: full ROM and supple Chest: COMMONS NORMALS: normal inspection of the chest and normal palpation of entire chest wall Resp: COMMON NORMALS: normal respiratory effort, No retractions, No use of accessory muscles and clear to auscultation bilaterally AUSCULTATION: clear to auscultation bilaterally Cardio: COMMON NORMALS: regular rate, regular rhythm and No murmurs present (Cardio) RATE: regular rate RHYTHM: regular rhythm GI: COMMON NORMALS: Normal to inspection, nondistended, normoactive bowel sounds present, Soft to palpation, non-tender and no masses PALPATION: Yes Soft to palpation Extremity: COMMON NORMALS: normal to inspection and full ROM Neuro: COMMON NORMALS: patient oriented x3, moves all extremities and no focal motor deficits Psych: COMMON NORMALS: mental status grossly normal, Normal thought process present and cooperative THOUGHT PROCESS: Normal thought process present Skin: COMMON NORMALS: no rashes or lesions noted and no wounds GENERAL SKIN EXAM: no rashes or lesions noted Course Vital Signs: Vital signs: Vital Signs Temperature 97.0 F L 02/05/22 18:52 Pulse Rate 55 L 02/05/22 22:06 Respiratory Rate 16 02/05/22 22:06 Blood Pressure 154/80 02/05/22 22:06 Pulse Oximetry 100 02/05/22 22:06 Oxygen Delivery Me thod 02/05/22 22:06 MDM - General Adult Medical Decision Making Patient presents here with metabolic acidosis possibly due to dehydration she has no signs of sepsis here today. Her blood pressure is normal I spoke to the hospitalist will admit for observation. Lab Data : 02/05/22 18:59 02/05/22 22:47 Laboratory Results WBC 6.5 10^3/uL (4.0-10.0) 02/05/22 18:59 RBC 4.02 10^6/uL (4.1-5.3) L 02/05/22 18:59 Hgb 11.9 g/dL (11.5-15.3) 02/05/22 18:59 Hct 39.0 % (37.0-47.0) 02/05/22 18:59 MCV 97.0 fl (81-99) 02/05/22 18:59 MCH 29.6 pg (28.0-34.0) 02/05/22 18:59 MCHC 30.5 g/dL (30.0-36.0) 02/05/22 18:59 RDW 18.1 % (12.1-15.1) H 02/05/22 18:59 Plt Count 311 10^3/cmm (130-400) 02/05/22 18:59 MPV 9.8 fL (7.4-10.4) 02/05/22 18:59 Neut % (Auto) 62.6 % 02/05/22 18:59 Lymph % (Auto) 31.0 % 02/05/22 18:59 [place] % (Auto) 5.1 % 02/05/22 18:59 Eos % (Auto) 0.2 % 02/05/22 18:59 Baso % (Auto) 0.8 % 02/05/22 18:59 Neut # (Auto) 4.09 10^3/uL (1.8-7.7) 02/05/22 18:59 Lymph # (Auto) 2.0 10^3/uL (0.8-4.8) 02/05/22 18:59 [place] # (Auto) 0.3 10^3/uL (0.2-0.9) 02/05/22 18:59 Eos # (Auto) 0.0 10^3/uL (0.0-0.8) 02/05/22 18:59 Baso # (Auto) 0.1 10^3/uL (0.0-0.1) 02/05/22 18:59 Nucleated RBC % (auto) 0 % 02/05/22 18:59 Nucleated RBCs # 0.0 /100WBC 02/05/22 18:59 Specimen Type Arterial 02/05/22 23:02 Sample Site Radial, left 02/05/22 23:02 ABG pH 7.21 (7.35-7.45) L 02/05/22 23:02 ABG pCO2 23.8 mmHg (35-45) L 02/05/22 23:02 ABG pO2 117.0 mmHg (80.0-100.0) H 02/05/22 23:02 ABG HCO3 9.4 mmol/L (22-26) L 02/05/22 23:02 ABG Base Excess -16.9 mmol/L (-2.0-2.0) L 02/05/22 23:02 Blane Test Pos 02/05/22 23:02 Hematocrit 29.4 % (37-47) L 02/05/22 23:02 O2 Delivery Device None 02/05/22 23:02 FiO2 21.0 % 02/05/22 23:02 Wood Stock Blank Handler ID Samaria 02/05/22 23:02 Sodium 133 mmol/L (136-145) L 02/05/22 22:47 Potassium 3.4 mmol/L (3.5-5.1) L 02/05/22 22:47 Chloride 111 mmol/L (98-107) H 02/05/22 22:47 Carbon Dioxide 10 mmol/L (22-29) L 02/05/22 22:47 Anion Gap 15.4 (5-19) 02/05/22 22:47 BUN 20 mg/dL (8-23) 02/05/22 22:47 Creatinine 1.7 mg/dL (0.5-0.9) H 02/05/22 22:47 GFR Calculation 30.0 mL/min (90-130) L 02/05/22 22:47 Glucose 93 mg/dL (65-115) 02/05/22 22:47 Calculated Osmolality 278 mOsm/kg (285-295) L 02/05/22 22:47 Calcium 7.6 mg/dL (8.5-10.5) L 02/05/22 22:47 Total Bilirubin 0.2 mg/dL (0.15-1.2) 02/05/22 18:59 AST 17 U/L (0-32) 02/05/22 18:59 ALT 12 U/L (0-33) 02/05/22 18:59 Alkaline Phosphatase 267 U/L (35-105) H 02/05/22 18:59 Total Protein 7.3 g/dL (6.6-8.7) 02/05/22 18:59 Albumin 3.7 g/dL (3.5-5.2) 02/05/22 18:59 Globulin 3.6 g/dL (1.3-4.6) 02/05/22 18:59 Discharge Plan Discharge Patient Disposition: Placed in Observation Clinical Impression: Metabolic acidosis Condition: Stable Prescriptions: No Action tizanidine 2 mg tablet 2 mg PO Q8H PRN (Reason: muscle spasticity) Qty: 60 0RF Isopto Tears 0.5 % Drops 1 drp eye-both Q4H PRN (Reason: Dry Eye(S)) Qty: 15 0RF Lanolin (HPA) 100 % Cream 1 applic topical PRN PRN (Reason: Dryness) Qty: 21 0RF tramadol 50 mg Tablet 50 mg PO Q6H PRN (Reason: Moderate Pain) Qty: 28 0RF oxycodone 5 mg Tablet 7.5 mg PO Q6H PRN (Reason: Moderate Pain) Qty: 84 0RF Adult Low Dose Aspirin 81 mg tablet,delayed release (DR/EC) 81 mg PO DAILY Qty: 90 0RF Narcan 4 mg/actuation spray,non-aerosol 1 spray intranasal Q2M PRN (Reason: opioid overdose) Qty: 2 0RF Rx Instructions: spray 1 dose into ONE nostril; alternate nostrils w each dose until help arrives Referrals: Alexandre Edwards DO [Primary Care Provider] - Coding Level of Care Code ED Associate Embalmer/Funeral Director for Chg Fwd Exam Comprehensive
[2022-02-05] MEDS: lactated ringers 1,000 ML 999 ML IV (21:55)
[2022-02-05 22:06] VITALS: BP 154/80; PULSE 55; RESP 16; O2SAT 100
[2022-02-05] MEDS: lactated ringers 1,000 ML 1000 ML IV (22:27)
[2022-02-05 23:10] LABS: Blood Urea Nitrogen 20 mg/dL (8-23); Calcium 7.6 mg/dL (8.5-10.5); Carbon Dioxide 10 mmol/L (22-29); Chloride 111 mmol/L (98-107); Glucose 93 mg/dL (65-115); Osmolality Calculated 278 mOsm/kg (285-295); Sodium 133 mmol/L (136-145)
[2022-02-05 23:13] LABS: ABG PCO2 23.8 mmHg (35-45); ABG PH Result 7.21 (7.35-7.45); Arterial Blood Gas Hematocrit 29.4 % (37-47); Base Excess ABG -16.9 mmol/L (-2.0-2.0); Blood Gas Allen Test Pos; Blood Gas Operator Identificat WALCI; Blood Gas Sample Site Radial, left; Blood Gas Sample Type Arterial; HCO3 ABG 9.4 mmol/L (22-26)
[2022-02-05 23:14] LABS: Anion Gap 15.4 (5-19); Potassium 3.4 mmol/L (3.5-5.1)
[2022-02-06] VITALS (8 sets, daily range): BP systolic 118–157; BP diastolic 65–78; PULSE 58–96; RESP 16–17; TEMP 36.4–37.2; O2SAT 90–100; BMI 15.5
[2022-02-06] LABS: Lactate (Lactic Acid level) 2.6 mmol/L (0.5-2.2)
--- NOTE | 2022-02-06 00:51 | PM.HP ---
Providers/Chief Complaint Admitting Physician: Son Godoy Primary Care Provider: Alexandre Edwards DO Chief Complaint: Possible dehydration History of Present Illness Pleasant 66-year-old lady with history of vulvar cancer, status post urinary bladder resection, colostomy, urinary diversion with urostomy, history of chemoradiation, now cancer free as of 2019, DJD, fibromyalgia, on chronic opioid, other chronic problems came in for evaluation to ER due to overall feeling unwell, generally weak, with poor appetite and oral intake, during prior admission earlier this month was treated for urinary tract infection, possible pneumonia, on admission with dehydration, metabolic acidosis, acute kidney injury which had resolved with rehydration. Was found to have moderate right hydronephrosis and hydroureter without obstructive lesion, left kidney staghorn calculus and right kidney nonobstructive calyceal stone, for both of which will need follow-up with urology. Bicarb on admission last time was as low as 2 and gradually improved. Currently she is again noted in metabolic acidosis, bicarb of 10, anion gap 17.6, with bicarb of 10 and gap down to 15.4 after rehydration with 1 L of LR. However, without LORRI, creatinine 1.7 is at baseline. BUN 20. She denies any diarrhea or increased colostomy output, in fact with little bit less output than usual as she has not been eating. Review of Systems Const: Reports: change in appetite and fatigue; Denies: fever(s) or chills Eyes: Denies: change in vision, eye discomfort or eye redness ENMT: Denies: throat pain, oral sores or ear or mastoid pain Card: Denies: chest pain, edema, pre-syncope or dyspnea on exertion Resp: Denies: dyspnea, productive cough, change in phlegm color or hemoptysis GI: Denies: abdominal pain, nausea, vomiting, diarrhea, constipation, hematochezia or melena : Denies: flank pain, urinary frequency or hematuria Musc: Denies: back pain, joint swelling or joint redness Skin/Breast: Denies: rash or new lesions Neuro: Denies: headache(s), numbness in extremities, weakness in extremities, dizziness, confusion or seizure-like activity Endo: Denies: polyuria or polydipsia Bnoy/Lymph: Denies: easy bleeding or tender lymph nodes All/Imm: Denies: urticaria or tongue swelling Medications/Allergies Home Medications Medication Instructions Recorded Confirmed Last Taken Type artificial tears(hypromellose) 0.5 1 drp eye-both Q4H PRN Dry Eye(S) 01/22/22 Unknown Rx % eye drops (Isopto Tears) #15 mL aspirin 81 mg tablet,delayed 81 mg PO DAILY #90 tabs 01/22/22 Unknown Rx release (Adult Low Dose Aspirin) modified lanolin 100 % topical 1 applic topical PRN PRN Dryness 01/22/22 Unknown Rx cream (Lanolin (HPA)) #21 grams naloxone 4 mg/actuation nasal 1 spray intranasal Q2M PRN opioid 01/22/22 Unknown Rx spray (Narcan) overdose #2 ea oxycodone 5 mg tablet 7.5 mg PO Q6H PRN Moderate Pain 01/22/22 Unknown Rx #84 tabs tizanidine 2 mg tablet 2 mg PO Q8H PRN muscle spasticity 01/22/22 Unknown Rx #60 tabs tramadol 50 mg tablet 50 mg PO Q6H PRN Moderate Pain #28 01/22/22 Unknown Rx tabs Allergies Allergy/AdvReac Type Severity Reaction Status Date / Time amitriptyline Allergy ADR-Halluci Verified 01/16/22 04:21 nating gabapentin Allergy ADR-Halluci Verified 01/16/22 04:21 nating haloperidol [From Haldol] Allergy ADR-Confusi Verified 01/16/22 04:21 on morphine Allergy Unconscious Verified 01/16/22 04:21 tiagabine [From Gabitril] Allergy ADR-Agitate Verified 01/16/22 04:21 d PFSH Acute PFSH: Medical History Chronic diarrhea Chronic pain Colostomy in place DDD (degenerative disc disease) DJD (degenerative joint disease) of cervical spine Fatigue Fibromyalgia Hair loss History of cancer Pain medication contract needed Vulvar cancer Surgical History History of colostomy History of gastric bypass History of urostomy Social History Smoking and tobacco status: never smoked Alcohol intake: never Female Reproductive History: Spontaneous abortions: No Vitals/I&O/Wt Last Vital Signs Temp 97.0 F L 02/05/22 18:52 Pulse 70 02/06/22 00:44 Resp 16 02/06/22 00:44 BP 135/66 02/06/22 00:44 Pulse Ox 95 02/06/22 00:44 O2 Del Method 02/05/22 22:06 02/05/22 02/05/22 02/06/22 14:59 22:59 06:59 Intake Total 1532.8 / 1532.8 Balance 1532.8 / 1532.8 Weight last 48 hrs Weight 37.195 kg Physical Exam Narrative: Accompanied by her sister at bedside. Const: COMMON NORMALS: patient oriented x3 and alert GENERAL APPEARANCE: cooperative ORIENTATION/CONSCIOUSNESS: Yes awake HENMT: COMMON NORMALS: oropharynx normal Neck/C-Spine: COMMON NORMALS: no JVD Resp: COMMON NORMALS: normal respiratory effort and clear to auscultation bilaterally AUSCULTATION: clear to auscultation bilaterally Cardio: COMMON NORMALS: no JVD, regular rhythm, S1 normal heart sound present, S2 normal heart sound present and No murmurs present (Cardio) RHYTHM: regular rhythm HEART SOUNDS: S1 normal heart sound present and S2 normal heart sound present GI: COMMON NORMALS: Normal to inspection, nondistended, normoactive bowel sounds present, Soft to palpation and non-tender PALPATION: Yes Soft to palpation OTHER: Colostomy L abdomen small amount of soft output, urostomy LLQ Extremity: COMMON NORMALS: no joint enlargement and no pedal edema Neuro: COMMON NORMALS: patient oriented x3 and moves all extremities SENSORIUM/ORIENTATION: Yes alert Skin: COMMON NORMALS: no rashes or lesions noted GENERAL SKIN EXAM: no rashes or lesions noted Data : 02/05/22 18:59 02/05/22 22:47 A&P Assessment and plan (1) Metabolic acidosis: On return again with metabolic acidosis. Has been feeling weak. Poor appetite. Noted non-anion gap metabolic acidosis with hyperchloremia, low potassium, additionally mild lactic acidosis. Some of it likely secondary to dehydration, hypoperfusion. Some response to hydration with 1 L LR anion gap down to 15.4 from 17.6, although CO2 is unchanged at 10. Additional consideration for metabolic acidosis possibly nongap acidosis related to urinary diversion. In the past she had had some diarrhea, but not recently, has not had any increased output from colostomy so this not likely to be contributing. Does have renal dysfunction, consideration of RTA, will assess urine electrolytes, UA, request additional assessment by nephrology. Previously also with hydronephrosis noted on CT, without obstruction so did not have any intervention, but we will follow-up as discussed with her and her sister additional renal CT. Plan Staghorn calculus on the left, nonobstructive calyceal calculus on the right, will need follow-up with urology. Requests to follow-up in [facility] with Dr. Simpson. Hx vulvar cancer, status post urinary bladder resection, colostomy, urinary diversion with urostomy, history of chemoradiation, now cancer free as of 2019, CKD DJD, Fibromyalgia, on chronic opioid Attestations Medical Necessity Statement*: Place in observation for additional assessment and management of persistent and recurrent nongap metabolic acidosis. Coding Level of Care Code Acute Construction Carpenters Helper for Chg Fwd Diagnoses Metabolic acidosis E87.20
--- NOTE | 2022-02-06 01:58 | CTR_ITS ---
PROCEDURE INFORMATION: Exam: CT Abdomen And Pelvis Without Contrast Exam date and time: 02/06/2022 2:46 AM Age: 66 years old Clinical indication: Prior surgery; Surgery type: Gastric bypass. Gb. Colon resection. Colostomy. Urostomy. Patient HX: Recent jared with RT hydronephrosis earlier this month. History of staghorn calculus. ; Additional info: Follow up hydronephrosis TECHNIQUE: Imaging protocol: Computed tomography of the abdomen and pelvis without contrast. Radiation optimization: All CT scans at this facility use at least one of these dose optimization techniques: automated exposure control; mA and/or kV adjustment per patient size (includes targeted exams where dose is matched to clinical indication); or iterative reconstruction. COMPARISON: [place] [id number] 01/15/2022 11:13 PM RADIATION DOSE METRICS: Total DLP (mGy-cm): 263.05 FINDINGS: Tubes, catheters and devices: Multiple surgical sutures are seen in the pelvis. Lungs: In the right posterior basal segment, there is a 7 mm nodule versus nodular scarring. There are calcified granulomata at both lung bases. Liver: Normal size and homogeneous density. No liver mass is seen. Gallbladder and bile ducts: There has been a cholecystectomy. There is a mild, expected degree of common bile duct and intrahepatic ductal dilation. Pancreas: Normal size and homogeneous density. No ductal dilation. Spleen: The spleen is normal in size. There are multiple punctate splenic granulomata. Adrenal glands: Normal. No mass. Kidneys and ureters: There are bilateral duplicated renal collecting systems and moderate bilateral hydronephrosis. In the lower pole of the left kidney, there is a staghorn calculus with maximum measurements of 2.8 x 1.8 cm. Stomach and bowel: There is a right lower quadrant ileostomy. In the interpolar region of the right kidney, there is an 8 mm calculus. There is a transverse colostomy in the mid epigastrium to the left of the midline. In the right hemipelvis, there is an anastomosis and a fluid collection measuring 7 point 7 x 5.8 cm, that may or may not be part of the colon. Appendix: No evidence of appendicitis. Intraperitoneal space: No free air. No significant fluid collection. Vasculature: No abdominal aortic aneurysm. Lymph nodes: No enlarged retroperitoneal or mesenteric lymph nodes. Urinary bladder: The bladder shows a normal contour and is free of calcific opacities. Reproductive: Unremarkable as visualized. Bones/joints: No acute fracture. At L2-L3 there are degenerative disc disease, Schmorl's nodes and bulging disc. There are bulging discs and facet arthrosis at multiple levels in the lumbar spine. Soft tissues: Unremarkable. CT/CT kidney stone [id number] IMPRESSION: 1. Bilateral nonobstructive renal calculi, a staghorn calculus on the left. 2. Bilateral duplicated collecting systems and moderate bilateral hydronephrosis, more prominent on the right. Hydronephrosis is worse bilaterally than on the comparison examination. 3. Status post cystectomy and ileal conduit. 4. Status post partial colectomy with a transverse colostomy. 5. A 7.7 x 5.8 cm fluid collection in the right hemipelvis of uncertain etiology, possibly a dilated cecum or part of the ileal conduit.
[2022-02-06] MEDS: heparin 5,000 unit/mL INJ 1 mL 5000 UNIT SUBCUT ×2 (02:25→18:16)
--- NOTE | 2022-02-06 04:35 | PC.NURSE ---
emptied urostomy into toilet before getting a graduated cylinder
--- NOTE | 2022-02-06 05:35 | PM.CONSULT ---
Providers/Reason For Consult Consulting Physician/Specialty*: Lu Arcos DO, telenephrology Reason for Consult*: recurrent/persistent metabolic acidosis Requesting Physician: Son Godoy Attending Physician: Son Godoy Primary Care Provider: Alexandre Edwards DO History of Present Illness History of Present Illness Deborah Inman is a 66 year old female presented to ER with complaint of weakness. Recent hospitalization for UTI, pneumonia Has ileostomy and ureteral diversion (2 separate ostomies), reports these were created in last [address] Donovan in [place] Review of Systems Const: Reports: other (weakness) GI: Reports: dysphagia (bicarbonate pills too large) and other (ileostomy bag emptied twice today - 550 ml) Medications/Allergies Home Medications Medication Instructions Recorded Confirmed Last Taken Type modified lanolin 100 % topical 1 applic topical PRN PRN Dryness 01/22/22 02/06/22 Unknown Rx cream (Lanolin (HPA)) #21 grams naloxone 4 mg/actuation nasal 1 spray intranasal Q2M PRN opioid 01/22/22 02/06/22 Unknown Rx spray (Narcan) overdose #2 ea oxycodone 5 mg tablet 7.5 mg PO Q6H PRN Moderate Pain 01/22/22 02/06/22 02/05/22 Rx #84 tabs tizanidine 2 mg tablet 2 mg PO Q8H PRN muscle spasticity 01/22/22 02/06/22 Unknown Rx #60 tabs tramadol 50 mg tablet 50 mg PO Q6H PRN Moderate Pain #28 01/22/22 02/06/22 Unknown Rx tabs Allergies Allergy/AdvReac Type Severity Reaction Status Date / Time amitriptyline Allergy ADR-Halluci Verified 01/16/22 04:21 nating gabapentin Allergy ADR-Halluci Verified 01/16/22 04:21 nating haloperidol [From Haldol] Allergy ADR-Confusi Verified 01/16/22 04:21 on morphine Allergy Unconscious Verified 01/16/22 04:21 tiagabine [From Gabitril] Allergy ADR-Agitate Verified 01/16/22 04:21 d Current Medications Generic Name Dose Route Start Last Admin Trade Name Freq PRN Reason Stop Dose Admin Heparin Sodium (Porcine) 5,000 unit 02/06/22 01:58 02/06/22 02:25 Heparin 5,000 Unit/Ml Inj 1 Ml SUBCUT 5,000 unit Q12H ANGEL Administration PFSH Acute PFSH: Medical History Chronic diarrhea Chronic pain Colostomy in place DDD (degenerative disc disease) DJD (degenerative joint disease) of cervical spine Fatigue Fibromyalgia Hair loss History of cancer Pain medication contract needed Vulvar cancer Surgical History History of colostomy History of gastric bypass History of urostomy Social History Smoking and tobacco status: never smoked Alcohol intake: never Female Reproductive History: Spontaneous abortions: No Vitals/I&O/Wt Last Vital Signs Temp 97.5 F L 02/06/22 04:00 Pulse 58 L 02/06/22 04:00 Resp 17 02/06/22 04:00 BP 157/65 02/06/22 04:00 Pulse Ox 97 02/06/22 04:00 O2 Del Method 02/06/22 01:56 02/05/22 02/05/22 02/06/22 14:59 22:59 06:59 Intake Total 1532.8 / 1532.8 Balance 1532.8 / 1532.8 Weight last 48 hrs Weight 39.916 kg Weight 37.195 kg Physical Exam Narrative: cachetic Const: COMMON NORMALS: no acute distress and alert Neuro: SENSORIUM/ORIENTATION: Yes alert Data : 02/05/22 18:59 02/05/22 22:47 Other Labs: lactate 2.6, Calcium 7.6, albumin 3.7, phos 2.1, Mg 1.6 CT Abd/Pel: Radiologist's impression: 1. Bilateral nonobstructive renal calculi, a staghorn calculus on the left. 2. Bilateral duplicated collecting systems and moderate bilateral hydronephrosis, more prominent on the right.? Hydronephrosis is worse bilaterally than on the comparison examination. 3. Status post cystectomy and ileal conduit. 4. Status post partial colectomy with a transverse colostomy. 5. A 7.7 x 5.8 cm fluid collection in the right hemipelvis of uncertain etiology, possibly a dilated cecum or part of the ileal conduit. ABG Interpretation 1: 02/05/22 23:02 ABG pH 7.21 L ABG pCO2 23.8 L ABG pO2 117.0 H ABG HCO3 9.4 L ABG Base Excess -16.9 L A&P Assessment and plan (1) Metabolic acidosis: seen via telehealth with assistance of RN at bedside Plan Impression: 1. normal anion gap metabolic acidosis due to ureteral diversion, also mildly elevated lactate 2. hypokalemia. Potassium deficit is large given hypokalemia during acidosis 3. bilateral renal calculi, staghorn on left, also related to ureteral diversion 4. bilateral hydronephrosis 5. Stage 3b chronic kidney disease, eGFR 32 ml/min, present since September 2021 6. Mild hyponatremia Recommend: IVF with sodium bicarbonate. begin oral sodium bicarbonate and ideally potassium citrate (not available - sodium citrate ordered). Replete potassium, Mg and phos. Needs urologic evaluation. 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
[2022-02-06 06:22] LABS: Magnesium 1.6 mg/dL (1.7-2.3); Phosphorus 2.1 mg/dL (2.5-4.5)
--- NOTE | 2022-02-06 06:27 | FL_ITS ---
WS: [id number] INDICATION: Ileal loopogram TECHNIQUE: RIGHT lower quadrant ileostomy was cannulated with a Shin catheter. Balloon was inflated with saline. Subsequently, 80ccs of Omnipaque was administered. Immediate opacification of the ileal pouch. No evidence of ileal obstruction. Rapid opacification of the LEFT ureter with LEFT hydronephro sis and staghorn calculi as seen on the recent CT. RIGHT ureter does not opacify. Dilated bowel loop with air-fluid level in the recent CT likely repres ents residual colon. FL/FL Ileo Loopogram [id number] IMPRESSION: 1. Normal ileal pouch. No evidence of ileal obstruction. 2. Rapid opacification of the LEFT ureter with LEFT hydronephrosis and staghorn calculi as seen on the recent CT. 3. RIGHT ureter does not opacify.
[2022-02-06] MEDS: citric acid-sodium citrate 30 mL UDC PO ×5 (06:31→20:47)
[2022-02-06] MEDS: potassium chloride ER 20 mEq Tablet 40 MEQ PO (06:31)
[2022-02-06] MEDS: sodium bicarbonate 650 mg Tablet PO (08:56)
[2022-02-06] MEDS: aspirin 81 mg EC Tablet PO (08:56)
--- NOTE | 2022-02-06 09:22 | PM.MISC ---
Miscellaneous Note Note: H&P reviewed Consultation note reviewed Labs and CT scan reviewed Patient is stating currently she is living with her sister, home health nurse asked her to go to the ER because of her worsening of weakness Patient is laying flat Cachectic malnourished muscle mass loss Ileostomy bag intact which is filled with urine Colostomy bag draining stool Cachectic, malnourished No signs of edema Awake and alert Currently on room air Pleasant during my evaluation Assessment and plan Normal anion gap acidosis related to ileal conduit Appreciate nephro recommendations Continue p.o. 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
[2022-02-06 09:46] LABS: Creatine Phosphokinase 61 U/L (26-192)
[2022-02-06 10:11] LABS: Procalcitonin 0.22 ng/mL (0-0.5)
[2022-02-06] MEDS: sodium chloride 0.9% 1,000 ML 75 ML IV (10:55)
[2022-02-06 14:04] LABS: Anion Gap 17.8 (5-19); Blood Urea Nitrogen 17 mg/dL (8-23); Calcium 7.6 mg/dL (8.5-10.5); Carbon Dioxide 13 mmol/L (22-29); Chloride 115 mmol/L (98-107); Glomerular Filtration Rate 28.1 mL/min (90-130); Glucose 103 mg/dL (65-115); Osmolality Calculated 294 mOsm/kg (285-295); Potassium 4.8 mmol/L (3.5-5.1); Sodium 141 mmol/L (136-145)
[2022-02-06] MEDS: sodium bicarbonate 50 MEQ in sodium chloride 0.45% 1,000 ML 100 MEQ IV (14:43)
--- NOTE | 2022-02-06 17:33 | PM.CONSULT ---
Providers/Reason For Consult Consulting Physician/Specialty*: Urology/Simpson Reason for Consult*: Bilateral hydroureteronephrosis and patient is status post urinary diversion with ileal loop Requesting Physician: Dr. Doyle Attending Physician: Milo Doyle MD Primary Care Provider: Alexandre Edwards DO History of Present Illness History of Present Illness Deborah Inman is a 66 year old female who I evaluated for the first time today at the request of the hospitalist service. Chart and previous records reviewed. She is status post what sounds to be a pelvic exoneration for vulvar cancer with urinary diversion and colostomy formation. Patient is not exactly sure what surgeries have been performed she will check with her and her daughter who she is sure knows the details. It sounds as though she had about an 8-hour operation with both Dr. Arias as well as Dr. Frey. Denies any renal colic. Has not had trouble with the stomal stenosis of the urostomy in the past. No gross hematuria. Few weeks back she was hospitalized with severe acidosis. She recovered well. A CT scan at that time showed mild bilateral hydronephrosis, partial staghorn left renal pelvis but no clear evidence of obstruction of the collecting system. Repeat CT scan on this admission showed marked increase in bilateral hydroureter ureter nephrosis of unclear etiology. There appeared to be a fluid collection in her pelvis associated with the bowel that appeared to be collected in the pelvis likely status post pelvic exoneration. The reason for the fluid collection is unclear. A loopogram was ordered and showed no evidence of stomal stenosis with loop dilation. It also showed rapid transit of contrast of the left ureter into the mildly dilated collecting system. There is no filling of the right ureter but some contrast could be seen on delayed films in the right renal pelvis. There is no evidence that the ileal loop is a part of the area that looks like a fluid collection in her pelvis and confluence with the bowel. It is hard to explain the findings of the progression of bilateral hydronephrosis given these issues; the likelihood that she has had sudden development of bilateral ureteral obstruction in the absence of stones is considered small. Review of Systems Const: Reports: malaise; Denies: fever(s) or chills Eyes: Denies: change in vision or eye discharge ENMT: Denies: hoarseness Card: Denies: chest pain or palpitations Resp: Denies: dyspnea or productive cough GI: Denies: nausea, vomiting or bloating : Denies: flank pain or hematuria Musc: Denies: joint redness or joint warmth Skin/Breast: Denies: sores Neuro: Denies: confusion or Slurred speech present Psych: Reports: depression Endo: Denies: flushing Bony/Lymph: Denies: easy bruising or easy bleeding All/Imm: Denies: acute wheezing Medications/Allergies Home Medications Medication Instructions Recorded Confirmed Last Taken Type modified lanolin 100 % topical 1 applic topical PRN PRN Dryness 01/22/22 02/06/22 Unknown Rx cream (Lanolin (HPA)) #21 grams naloxone 4 mg/actuation nasal 1 spray intranasal Q2M PRN opioid 01/22/22 02/06/22 Unknown Rx spray (Narcan) overdose #2 ea oxycodone 5 mg tablet 7.5 mg PO Q6H PRN Moderate Pain 01/22/22 02/06/22 02/05/22 Rx #84 tabs tizanidine 2 mg tablet 2 mg PO Q8H PRN muscle spasticity 01/22/22 02/06/22 Unknown Rx #60 tabs tramadol 50 mg tablet 50 mg PO Q6H PRN Moderate Pain #28 01/22/22 02/06/22 Unknown Rx tabs potassium chloride 10 mEq 10 meq PO DAILY #20 tabs 02/08/22 Unknown Rx tablet,extended release sodium bicarbonate 650 mg tablet 650 mg PO TID #100 tabs 02/08/22 Unknown Rx sodium di- and 1 tab PO DAILY #60 tabs 02/08/22 Unknown Rx monophosphate-potassium phos monobasic 250 mg tablet ([id number]) Allergies Allergy/AdvReac Type Severity Reaction Status Date / Time amitriptyline Allergy ADR-Halluci Verified 01/16/22 04:21 nating gabapentin Allergy ADR-Halluci Verified 01/16/22 04:21 nating haloperidol [From Haldol] Allergy ADR-Confusi Verified 01/16/22 04:21 on morphine Allergy Unconscious Verified 01/16/22 04:21 tiagabine [From Gabitril] Allergy ADR-Agitate Verified 01/16/22 04:21 d Current Medications Generic Name Dose Route Start Last Admin Trade Name Freq PRN Reason Stop Dose Admin Citric Acid/Sodium Citrate 30 ml 02/06/22 11:12 02/06/22 14:44 Citric Acid-Sodium Citrate 30 Ml Udc PO 30 ml QID ANGEL Administration Heparin Sodium (Porcine) 5,000 unit 02/06/22 01:58 02/06/22 02:25 Heparin 5,000 Unit/Ml Inj 1 Ml SUBCUT 5,000 unit Q12H ANGEL Administration Sodium Bicarbonate 75 meq/ 1,075 mls @ 75 mls/hr 02/06/22 16:00 02/06/22 17:01 Dextrose IV 02/07/22 06:19 75 mls/hr .[id number] ONE Administration PFSH Acute PFSH: Medical History Abdominal fluid collection LORRI (acute kidney injury) Chronic diarrhea Chronic pain Colostomy in place DDD (degenerative disc disease) DJD (degenerative joint disease) of cervical spine Fatigue Fibromyalgia Hair loss History of cancer Hydronephrosis Metabolic acidosis Pain medication contract needed Severe protein-energy malnutrition Staghorn renal calculus Vulvar cancer Surgical History History of colostomy History of gastric bypass History of urinary diversion procedure History of urostomy Social History Smoking and tobacco status: never smoked Alcohol intake: never Female Reproductive History: Spontaneous abortions: No Vitals/I&O/Wt Last Vital Signs Temp 98.4 F 02/06/22 11:13 Pulse 67 02/06/22 11:13 Resp 16 02/06/22 11:13 BP 130/77 02/06/22 11:13 Pulse Ox 96 02/06/22 11:13 O2 Del Method 02/06/22 11:13 02/06/22 02/06/22 02/06/22 06:59 14:59 22:59 Intake Total 768.25 / 768.25 105 / 873.25 Output Total 400 / 400 1300 / 1300 500 / 1800 Balance -400 / 1132.8 -531.75 / -531.75 -395 / -926.75 Weight last 48 hrs Weight 88 lb Weight 82 lb Physical Exam Const: COMMON NORMALS: no acute distress and alert GENERAL APPEARANCE: well kempt and well developed ORIENTATION/CONSCIOUSNESS: not confused HENMT: COMMON NORMALS: normocephalic HEAD & SCALP: normal to inspection and normocephalic Eye: COMMON NORMALS: conjunctivae normal and no scleral icterus CONJUNCTIVA: Yes conjunctivae normal Neck/C-Spine: GENERAL: Yes normal visual inspection Lymph: OTHER: No groin lymphadenopathy Chest: OTHER: Normal chest movements Resp: COMMON NORMALS: normal respiratory effort EFFORT & INSPECTION: Yes able to speak in complete sentences, No labored and No Actively coughing GI: OTHER: Urostomy right lower quadrant, bowel ostomy on the left. No palpable masses. Soft. : OTHER: [place] urostomy. Extremity: COMMON NORMALS: no clubbing, cyanosis or edema Neuro: COMMON NORMALS: no focal motor deficits SENSORIUM/ORIENTATION: Yes alert Psych: COMMON NORMALS: mental status grossly normal APPEARANCE: Yes grossly normal and Yes well kempt ATTITUDE: Yes calm and Yes engaged MOOD & AFFECT: Yes depressed mood INSIGHT: Good insight present (Psych) JUDGEMENT: Good judgement present (Psych) Skin: COMMON NORMALS: no jaundice OTHER: Does have some mild irritation rash around the urostomy stoma. Data : 02/08/22 03:29 02/08/22 03:29 Other data: I reviewed her CT scans available and loopogram. A&P Assessment and plan (1) Hydronephrosis: Bilateral hydronephrosis with marked increase from CT scan just several weeks ago. No evidence of obstruction with loopogram on the left kidney and delayed transit on the right. Not much difference between right and left hydronephrosis on CT scan. Etiology unclear. Recommend close observation of renal function May require bilateral percutaneous nephrostomies if persistent or worsening. Will need to have evaluation on outpatient basis. (2) Staghorn renal calculus: (3) Vulvar cancer: (4) History of urinary diversion procedure: (5) Abdominal fluid collection: Consult Attestations Medical Necessity Statement: See attending Coding Level of Care Code Acute Diamond Assorter for Chg Fwd Exam Comprehensive Diagnoses Hydronephrosis N13.30 Staghorn renal calculus N20.0 Vulvar cancer C51.9 History of urinary diversion procedure Z98.890 Abdominal fluid collection R18.8
[2022-02-06] MEDS: iohexol 350 mg/mL 500 mL Btl (per mL) XX (17:53)
[2022-02-07] VITALS (8 sets, daily range): BP systolic 108–140; BP diastolic 61–77; PULSE 75–80; RESP 14–18; TEMP 36.6–37.2; O2SAT 97–100
[2022-02-07] MEDS: heparin 5,000 unit/mL INJ 1 mL 5000 UNIT SUBCUT (01:36)
[2022-02-07 03:39] LABS: Basophils % 0.5 %; Eosinophils % 0.5 %; Hematocrit 26.6 % (37.0-47.0); Hemoglobin 8.4 g/dL (11.5-15.3); Lymphocytes # 2.1 10^3/uL (0.8-4.8); Lymphocytes % 34.2 %; Mean Corpuscular HGB Conc 31.6 g/dL (30.0-36.0); Mean Corpuscular Hemoglobin 29.6 pg (28.0-34.0); Mean Corpuscular Volume 93.7 fl (81-99); Mean Platelet Volume 9.9 fL (7.4-10.4); Monocytes # 0.4 10^3/uL (0.2-0.9); Monocytes % 5.8 %; Neutrophils # 3.51 10^3/uL (1.8-7.7); Neutrophils % 58.7 %; Nucleated Red Blood Cells % 0 %; Platelet Count 226 10^3/cmm (130-400); Red Blood Count 2.84 10^6/uL (4.1-5.3); Red Cell Distribution Width 17.9 % (12.1-15.1)
[2022-02-07 04:19] LABS: Alanine Aminotransferase 8 U/L (0-33); Albumin Level 2.8 g/dL (3.5-5.2); Alkaline Phosphatase 187 U/L (35-105); Anion Gap 12.5 (5-19); Aspartate Amino Transferase 14 U/L (0-32); Blood Urea Nitrogen 16 mg/dL (8-23); Carbon Dioxide 14 mmol/L (22-29); Chloride 118 mmol/L (98-107); Globulin 1.7 g/dL (1.3-4.6); Glomerular Filtration Rate 37.5 mL/min (90-130); Glucose 93 mg/dL (65-115); Osmolality Calculated 293 mOsm/kg (285-295); Phosphorus 2.1 mg/dL (2.5-4.5); Potassium 3.5 mmol/L (3.5-5.1); Sodium 141 mmol/L (136-145); Total Bilirubin 0.2 mg/dL (0.15-1.2); Total Protein 4.5 g/dL (6.6-8.7)
[2022-02-07 05:02] LABS: Lactate (Lactic Acid level) 1.3 mmol/L (0.5-2.2)
[2022-02-07] MEDS: oxyCODONE 5 mg IR Tab/Cap 7.5 MG PO ×3 (08:15→23:09)
[2022-02-07 08:34] LABS: Glucose Urine UA Norm (Normal); Ketones Urine Negative (Negative); Protein Urine Trace (Negative); Urine Appearance Clear (CLEAR); Urine Color Yellow (Yellow); pH Urine 6.5 (5-7)
[2022-02-07 08:35] LABS: Add Urine Microscopic? YES; Bacteria Urine 3+ /hpf; Bilirubin Urine Neg (Negative); Blood Urine 2+ (Negative); Leukocyte Esterase Urine 2+ (Negative); Nitrate Urine Negative (Negative); RBC Urine 0-4 /hpf (0-2); Squamous Epithelial Cell Urine 0-4 /hpf (0-5); Urobilinogen Urine Norm (Negative)
[2022-02-07 08:36] LABS: Calcium Oxalate Crystals Urine 0-4 /hpf
[2022-02-07 08:37] LABS: Add Urine Culture? Yes
[2022-02-07 08:40] LABS: Urine Random Chloride 48 mmol/L; Urine Random Sodium 43 mmol/L
--- NOTE | 2022-02-07 09:20 | PM.PN ---
Subjective Subjective: Pt stating that she is feeling slightly better No overnight events I did discuss recommendations of Dr. Simpson. Her creatinine improved No plan for nephrostomy as of now Continue with fluids I will replenish her electrolytes which were phosphorus Potassium Metabolic acidosis still present Vitals/I&O/Wt Last Vital Signs Temp 98.3 F 02/07/22 07:27 Pulse 80 02/07/22 07:27 Resp 16 02/07/22 08:15 BP 117/69 02/07/22 07:27 Pulse Ox 98 02/07/22 07:27 O2 Del Method 02/07/22 07:27 02/06/22 02/07/22 02/07/22 22:59 06:59 14:59 Intake Total 105 / 873.25 120 / 120 Output Total 500 / 1800 175 / 1975 Balance -395 / -926.75 -175 / -1101.75 120 / 120 Weight last 48 hrs Weight 39.916 kg Weight 37.195 kg Physical Exam Narrative: Patient was eating breakfast Awake and alert Nonfocal neuro exam Abdomen soft Adequate output from ileostomy and colostomy bag Cachectic, malnourished Tolerating her diet Pleasant and cooperative Doing well on room air No audible stridor or wheezing Data : 02/07/22 03:13 02/07/22 03:13 A&P Assessment and plan (1) Metabolic acidosis: (2) History of urinary diversion procedure: (3) Staghorn renal calculus: (4) LORRI (acute kidney injury): (5) Severe protein-energy malnutrition: Plan Severe metabolic acidosis, normal anion gap Related to ileal conduit Continue bicarb tablets, continue with fluids Hypophosphatemia: Repleted Hypokalemia: Repleted Hypomagnesemia: Repleted Patient is awake and alert stable LORRI: Creatinine is improving No plan for nephrostomy tube as of now Patient is not showing signs of worsening I would like to watch her for 1 more day and if she keeps showing signs of improvement we will give her outpatient referral with Dr. Simpson and electronic page makeup system operator DNR/DNI Moderate protein calorie malnourishment, will ask dietitian to see her as well Patient is stating that she is not a big fan of Ensure she does not like the taste of it Attestations Medical Necessity Statement*: Discharge tomorrow if stable Time Spent in Patient Care: 30 Coding Level of Care Code Acute Core Cutter And Reamer for Chg Fwd Diagnoses Metabolic acidosis E87.20 History of urinary diversion procedure Z98.890 Staghorn renal calculus N20.0 LORRI (acute kidney injury) N17.9 Severe protein-energy malnutrition E43
[2022-02-07 09:36] LABS: Urine Random Potassium 14 mmol/L
--- NOTE | 2022-02-07 10:03 | P.PN_ITS ---
Subjective Subjective: feeling better ate breakfast, reports loose BM with every meal cannot swallow bicarbonate tablets Vitals/I&O/Wt Last Vital Signs Temp 98.3 F 02/07/22 07:27 Pulse 80 02/07/22 07:27 Resp 16 02/07/22 08:15 BP 117/69 02/07/22 07:27 Pulse Ox 98 02/07/22 07:27 O2 Del Method 02/07/22 07:27 02/06/22 02/07/22 02/07/22 22:59 06:59 14:59 Intake Total 105 / 873.25 120 / 120 Output Total 500 / 1800 / 1974 Balance -395 / -926.75 -175 / -1101.75 120 / 120 Weight last 48 hrs Weight 39.916 kg Weight 37.195 kg Physical Exam Const: COMMON NORMALS: no acute distress and alert Extremity: NARRATIVE EXTREMITY EXAM: no edema Neuro: SENSORIUM/ORIENTATION: Yes alert Data : 02/07/22 03:13 02/07/22 03:13 Other Labs: lactate normal, Ca 7, Mg 2, phos 2.1 A&P Assessment and plan (1) Metabolic acidosis: seen via telehealth with assistance of RN at bedside Plan Impression: 1. normal anion gap metabolic acidosis due to ureteral diversion, improved but bicarbonate requirements will be quite high long-term. She is unable to swallow bicarbonate tablets. Tolerating bicitra. Per pharmacy, bicarbonate tablets can be dissolved in water. Will add today. Lactate now normal 2. hypokalemia. Potassium deficit is large given hypokalemia during acidosis. Replete with KCl elixir 3. bilateral renal calculi, s,bilateral hydronephrosis, taghorn on left, also related to ureteral diversion. Seen by urology yesterday 4. Stage 3b chronic kidney disease, eGFR 32 ml/min, present since September 2021. Improved with hydration Recommend: see above. Could stool bulk forming agent be added? metamucil, questran? Attestations Medical Necessity Statement*: see above Time Spent in Patient Care: 16 - 35 minutes Coding Level of Care Code Acute Mortgage Processing Manager for Chg Fwd Diagnoses Metabolic acidosis E87.20
[2022-02-07] MEDS: citric acid-sodium citrate 30 mL UDC PO ×4 (10:27→21:35)
[2022-02-07] MEDS: sodium chloride 0.9% 1,000 ML 75 ML IV ×2 (10:27→21:36)
[2022-02-07] MEDS: sodium bicarbonate 650 mg Tablet PO ×2 (14:25→21:32)
[2022-02-07] MEDS: TRAMadol 50 mg Tablet PO (14:51)
[2022-02-08] VITALS (7 sets, daily range): BP systolic 93–128; BP diastolic 53–75; PULSE 58–79; RESP 14–18; TEMP 36.6–37.1; O2SAT 98–100
[2022-02-08] MEDS: tizanidine 4 mg Tablet 2 MG PO (02:08)
[2022-02-08 04:11] LABS: Basophils % 0.8 %; Eosinophils # 0.1 10^3/uL (0.0-0.8); Eosinophils % 1.1 %; Hemoglobin 7.8 g/dL (11.5-15.3); Lymphocytes % 37.5 %; Mean Corpuscular HGB Conc 31.2 g/dL (30.0-36.0); Mean Corpuscular Hemoglobin 29.7 pg (28.0-34.0); Mean Corpuscular Volume 95.1 fl (81-99); Mean Platelet Volume 10.2 fL (7.4-10.4); Monocytes # 0.3 10^3/uL (0.2-0.9); Monocytes % 6.4 %; Neutrophils # 2.87 10^3/uL (1.8-7.7); Nucleated Red Blood Cells % 0 %; Platelet Count 201 10^3/cmm (130-400); Red Blood Count 2.63 10^6/uL (4.1-5.3); Red Cell Distribution Width 18.4 % (12.1-15.1); White Blood Count 5.3 10^3/uL (4.0-10.0)
[2022-02-08 04:35] LABS: Alanine Aminotransferase 11 U/L (0-33); Albumin Level 2.5 g/dL (3.5-5.2); Alkaline Phosphatase 163 U/L (35-105); Anion Gap 10.9 (5-19); Aspartate Amino Transferase 19 U/L (0-32); Blood Urea Nitrogen 15 mg/dL (8-23); Calcium 6.8 mg/dL (8.5-10.5); Carbon Dioxide 14 mmol/L (22-29); Chloride 120 mmol/L (98-107); Globulin 1.8 g/dL (1.3-4.6); Glomerular Filtration Rate 44.8 mL/min (90-130); Glucose 85 mg/dL (65-115); Magnesium 1.9 mg/dL (1.7-2.3); Osmolality Calculated 292 mOsm/kg (285-295); Phosphorus 2.3 mg/dL (2.5-4.5); Potassium 3.9 mmol/L (3.5-5.1); Sodium 141 mmol/L (136-145); Total Bilirubin 0.2 mg/dL (0.15-1.2); Total Protein 4.3 g/dL (6.6-8.7)
[2022-02-08] MEDS: oxyCODONE 5 mg IR Tab/Cap 7.5 MG PO ×2 (06:07→13:44)
[2022-02-08] MEDS: sodium bicarbonate 650 mg Tablet PO ×2 (08:57→14:27)
[2022-02-08] MEDS: potassium chloride oral liq 20 mEq/15 mL UDC 40 MEQ PO (08:58)
--- NOTE | 2022-02-08 09:19 | PM.DCS ---
Discharge Providers Date of Admission: 02/07/22 16:07 Date of Discharge: February 08, 2022 Attending Provider at Admission: Stormy Hdz Attending Provider at Discharge: Milo Doyle MD Primary Care Provider: Alexandre Edwards DO Diagnoses at Discharge Discharge Diagnosis (1) Metabolic acidosis: Status: Acute Reason for Visit Reason for Visit: Possible dehydration Hospital Course Hospital Course 66-year-old female with history of vulvar cancer status post cystectomy, ileal conduit formation, colostomy, presented to the hospital for generalized weakness and fatigue, she was diagnosed with severe metabolic acidosis related to ileal conduit loss of bicarb she was hypokalemic hypomagnesemic and hypophosphatemic at risk of refeeding syndrome, she has been losing weight, she lives with her sister, she was given excessive bicarb, electrolytes were replenished she remained hemodynamically stable, there was concern for obstructed ileal conduit secondary to staghorn calculi, her creatinine improved with IV fluid hydration, Dr. Simpson recommended conservative management, she did not worsen, he did recommend nephrostomy tube in case she gets worse in future, nephrology was consulted for management of severe acidosis. At the time of discharge she will get bicarb tablets, she can also take half a teaspoon of baking soda to replenish her loss of bicarb, she will also get phosphorus and potassium. She never showed any signs of UTI, she was given antibiotics empirically. She does have mild protein calorie malnourishment dietitian was consulted as well. Physical Exam Narrative: Mild protein calorie malnourishment Cachectic, malnourished Abdomen has ileostomy bag and ileal conduit Awake and alert Eating breakfast In good spirits Currently on room air Discharge Data Studies Completed and Pending Completed Studies During Hospitalization Category Date Time Status [place] kidney stone 63314 Routine Cat Scan 02/06/22 01:58 Completed [place] Loopogram [id number] Routine Exams 02/06/22 06:27 Completed Pending at discharge Category Date Time Status Complete Blood Count w/Auto AM LABS Lab 02/09/22 04:00 Ordered Comprehensive Metabolic Panel AM LABS Lab 02/09/22 04:00 Ordered Magnesium AM LABS Lab 02/09/22 04:00 Ordered Phosphorus AM LABS Lab 02/09/22 04:00 Ordered Urine Culture Routine Lab 02/07/22 08:07 Received Urine Stone Risk Routine Lab 02/07/22 06:15 Received Radiology Impressions Abdomen/Pelvis CT 02/06/22 01:58 IMPRESSION: 1. Bilateral nonobstructive renal calculi, a staghorn calculus on the left. 2. Bilateral duplicated collecting systems and moderate bilateral hydronephrosis, more prominent on the right. Hydronephrosis is worse bilaterally than on the comparison examination. 3. Status post cystectomy and ileal conduit. 4. Status post partial colectomy with a transverse colostomy. 5. A 7.7 x 5.8 cm fluid collection in the right hemipelvis of uncertain etiology, possibly a dilated cecum or part of the ileal conduit. ADDENDUM: 02/06/22 0449 Findings were discussed with STORMY HDZ at 02/06/2022 4:47 AM CDT. Ileo Loopogram 02/06/22 06:27 IMPRESSION: 1. Normal ileal pouch. No evidence of ileal obstruction. 2. Rapid opacification of the LEFT ureter with LEFT hydronephrosis and staghorn calculi as seen on the recent CT. 3. RIGHT ureter does not opacify. Laboratory Results WBC 5.3 10^3/uL (4.0-10.0) 02/08/22 03:29 RBC 2.63 10^6/uL (4.1-5.3) L 02/08/22 03:29 Hgb 7.8 g/dL (11.5-15.3) L 02/08/22 03:29 Hct 25.0 % (37.0-47.0) L 02/08/22 03:29 MCV 95.1 fl (81-99) 02/08/22 03:29 MCH 29.7 pg (28.0-34.0) 02/08/22 03:29 MCHC 31.2 g/dL (30.0-36.0) 02/08/22 03:29 RDW 18.4 % (12.1-15.1) H 02/08/22 03:29 Plt Count 201 10^3/cmm (130-400) 02/08/22 03:29 MPV 10.2 fL (7.4-10.4) 02/08/22 03:29 Neut % (Auto) 54.0 % 02/08/22 03:29 Lymph % (Auto) 37.5 % 02/08/22 03: [place] % (Auto) 6.4 % 02/08/22 03:29 Eos % (Auto) 1.1 % 02/08/22 03: Baso % (Auto) 0.8 % 02/08/22 03:29 Neut # (Auto) 2.87 10^3/uL (1.8-7.7) 02/08/22 03: Lymph # (Auto) 2.0 10^3/uL (0.8-4.8) 02/08/22 03:29 [place] # (Auto) 0.3 10^3/uL (0.2-0.9) 02/08/22 03: Eos # (Auto) 0.1 10^3/uL (0.0-0.8) 02/08/22 03: Baso # (Auto) 0.0 10^3/uL (0.0-0.1) 02/08/22 03: Nucleated RBC % (auto) 0 % 02/08/22 03: Nucleated RBCs # 0.0 /100WBC 02/08/22 03:29 Specimen Type Arterial 02/05/22 23:02 Sample Site Radial, left 02/05/22 23:02 ABG pH 7.21 (7.35-7.45) L 02/05/22 23:02 ABG pCO2 23.8 mmHg (35-45) L 02/05/22 23:02 ABG pO2 117.0 mmHg (80.0-100.0) H 02/05/22 23:02 ABG HCO3 9.4 mmol/L (22-26) L 02/05/22 23:02 ABG Base Excess -16.9 mmol/L (-2.0-2.0) L 02/05/22 23:02 Blane Test Pos 02/05/22 23:02 Hematocrit 29.4 % (37-47) L 02/05/22 23:02 O2 Delivery Device None 02/05/22 23:02 FiO2 21.0 % 02/05/22 23:02 [employer]ed [employer] Contact Printer ID Samaria 02/05/22 23:02 Sodium 141 mmol/L (136-145) 02/08/22 03:29 Potassium 3.9 mmol/L (3.5-5.1) 02/08/22 03:29 Chloride 120 mmol/L (98-107) H 02/08/22 03:29 Carbon Dioxide 14 mmol/L (22-29) L 02/08/22 03:29 Anion Gap 10.9 (5-19) 02/08/22 03:29 BUN 15 mg/dL (8-23) 02/08/22 03:29 Creatinine 1.2 mg/dL (0.5-0.9) H 02/08/22 03:29 GFR Calculation 44.8 mL/min (90-130) L 02/08/22 03:29 Glucose 85 mg/dL (65-115) 02/08/22 03:29 Calculated Osmolality 292 mOsm/kg (285-295) 02/08/22 03:29 Lactate 1.3 mmol/L (0.5-2.2) 02/07/22 04:35 Calcium 6.8 mg/dL (8.5-10.5) L 02/08/22 03:29 Phosphorus 2.3 mg/dL (2.5-4.5) L 02/08/22 03:29 Magnesium 1.9 mg/dL (1.7-2.3) 02/08/22 03:29 Total Bilirubin 0.2 mg/dL (0.15-1.2) 02/08/22 03:29 AST 19 U/L (0-32) 02/08/22 03:29 ALT 11 U/L (0-33) 02/08/22 03:29 Alkaline Phosphatase 163 U/L (35-105) H 02/08/22 03:29 Creatine Kinase 61 U/L (26-192) 02/05/22 22:47 C-Reactive Protein 3.0 mg/L (0.0-4.9) 02/07/22 03:13 Total Protein 4.3 g/dL (6.6-8.7) L 02/08/22 03:29 Albumin 2.5 g/dL (3.5-5.2) L 02/08/22 03:29 Globulin 1.8 g/dL (1.3-4.6) 02/08/22 03:29 Procalcitonin 0.22 ng/mL (0-0.5) 02/05/22 22:47 Urine Color Yellow (Yellow) 02/07/22 08:07 Urine Appearance Clear (CLEAR) 02/07/22 08:07 Urine pH 6.5 (5-7) 02/07/22 08:07 Ur Specific [place] 1.010 (1.005-1.030) 02/07/22 08:07 Urine Protein Trace (Negative) 02/07/22 08:07 Urine Glucose (UA) Norm (Normal) 02/07/22 08:07 Urine Ketones Negative (Negative) 02/07/22 08:07 Urine Blood 2+ (Negative) H 02/07/22 08:07 Urine Nitrate Negative (Negative) 02/07/22 08:07 Urine Bilirubin Neg (Negative) 02/07/22 08:07 Urine Urobilinogen Norm mg/dL (Negative) 02/07/22 08:07 Ur Leukocyte Esterase 2+ (Negative) H 02/07/22 08:07 Urine RBC 0-4 /hpf (0-2) H 02/07/22 08:07 Urine WBC 5-10 /hpf (0-5) H 02/07/22 08:07 Ur Squamous Epith Cells 0-4 /hpf (0-5) H 02/07/22 08:07 Calcium Oxalate Crystal 0-4 /hpf H 02/07/22 08:07 Amorphous Sediment Not Reportable 02/07/22 08:07 Urine Bacteria 3+ /hpf (NONE) H 02/07/22 08:07 Ur Random Sodium 43 mmol/L 02/07/22 08:07 Ur Random Potassium 14 mmol/L 02/07/22 08:07 Ur Random Chloride 48 mmol/L 02/07/22 08:07 Vitals Last Vital Signs Temp 97.9 F 02/08/22 07:35 Pulse 58 L 02/08/22 07:35 Resp 14 02/08/22 07:35 BP 128/75 02/08/22 07:35 Pulse Ox 100 02/08/22 07:35 O2 Del Method 02/08/22 07:35 Discharge Plan Discharge Patient Disposition: Home Condition: Stable Prescriptions: New sodium bicarbonate 650 mg Tablet 650 mg PO TID Qty: 100 3RF potassium chloride 10 mEq tablet extended release 10 meq PO DAILY Qty: 20 0RF C-Wnde-Elqlusn 250 mg tablet 1 tab PO DAILY Qty: 60 3RF Continued tizanidine 2 mg tablet 2 mg PO Q8H PRN (Reason: muscle spasticity) Qty: 60 0RF Lanolin (HPA) 100 % Cream 1 applic topical PRN PRN (Reason: Dryness) Qty: 21 0RF tramadol 50 mg Tablet 50 mg PO Q6H PRN (Reason: Moderate Pain) Qty: 28 0RF oxycodone 5 mg Tablet 7.5 mg PO Q6H PRN (Reason: Moderate Pain) Qty: 84 0RF naloxone [Narcan] 4 mg/actuation spray,non-aerosol 1 spray intranasal Q2M PRN (Reason: opioid overdose) Qty: 2 0RF Rx Instructions: spray 1 dose into ONE nostril; alternate nostrils w each dose until help arrives Discharge Orders: Discharge Order (Routine); Ordered 02/08/22 Ordered By: Milo Doyle Referrals: [facility] ([facility]) [Outside] Alexandre Edwards DO [Primary Care Provider] - 02/12/22 9:15 am Patient Instructions: Opioid Safety Discharge Attestations Time Spent in Discharge Care*: less than 30 min Quality Metrics Clinical Quality Measures [ No reported AMI, CVA or VTE this stay] Coding Level of Care Code Acute Chg FW DC note Diagnoses Metabolic acidosis E87.20
[2022-02-08] MEDS: citric acid-sodium citrate 30 mL UDC PO ×2 (09:20→14:23)
--- NOTE | 2022-02-08 10:25 | PC.CHAP ---
Pastoral Care Encounter/Spiritual Assessment Type of Contact [] Declined trimmer tailer visit [] Patient/Family/Request visit [] Outpatient visit [] Follow-up visit [] Physician referral [] Code/Alert [x] Routine visit [] Staff referral [] Actively dying [] Patient sleeping [] Family support [] [] Out of room [] Palliative care [] [x] Receiving care in room [] Pre-surgical visit [] Trauma [] Long length of stay [] ICU visit [] Other: Relational/Emotional Strength [x] Patient feels connected with others/family/visitors/staff [] Distress [] Loneliness/isolation [] Abandonment Spirituality of Patient [x] Person of [place] [] Attends Church of their [place] [x] Believes in Prayer [] Reads Bible or Orthodox materials [] There are Spiritual issues to be addressed Farm Products Shipper Interventions [x] Prayer [x] Active listening [x] Non-anxious presence [x] Spiritual/emotional support [] Crisis/trauma care [x] Spiritual counseling [] Bereavement support [] Provided bereavement packet [] Provided Bible/devotional materials [] Provided toy/stuffed animal, coloring book to patient or family member [] Provided Communion [] Anointing/[place] [] Salvation [x] Completed spiritual assessment [] Other: Impact on Illness or Injury [] Angry [] Fearful [] Anxious [] Often cries [] Exhaustion [] Unable to work [] Unable to attend anabaptist [] Unable to walk/stand [] Unable to read [] Unable to drive [] Unable to eat/drink [] Unable to sleep [] Unable to be with family [] Patient intubated [] Other: Summary kindy infection cealering up has a good attitude well be going home soon Time spent with patient 10 mins
[2022-02-08] MEDS: sodium chloride 0.9% 1,000 ML 75 ML IV (14:24)
[2022-02-13 15:57] LABS: Calcium-Oxalate 1.25 (<2.00); Uric Stone 0.19 (<2.00); Urine Ammonia 24 Hour 25 mEq/day (14-62); Urine Citric Acid 24 Hour 41 mg/day (>320); Urine PH 24 Hour 6.8 (5.5-7.0); Urine Phosphorus 24 Hour 363 mg/day (<1100); Urine Potassium 24 Hour 28 mEq/day (19-135); Urine Sulfate 24 Hour 1 mmol/day (<30)
== END 2022-02-08 15:17 | disposition home health service (06) | DRG 641 ==
LOC: ER 23:56 → MEDSURG 02-06 00:10
PROVIDERS: Internal Medicine; Admitting Provider Internal Medicine; Emergency Provider Emergency Medicine; PCP Family Medicine; Visit Provider Internal Medicine
DX: E87.20 Acidosis, unspecified (principal); R64 Cachexia; Z68.1 Body mass index [BMI] 19.9 or less, adult; N13.30 Unspecified hydronephrosis; N17.9 Acute kidney failure, unspecified; E44.1 Mild protein-calorie malnutrition; E87.6 Hypokalemia; E83.42 Hypomagnesemia; E83.39 Other disorders of phosphorus metabolism; N20.0 Calculus of kidney; E86.0 Dehydration; M79.7 Fibromyalgia; N18.32 Chronic kidney disease, stage 3b; E87.1 Hypo-osmolality and hyponatremia; Z85.44 Personal history of malignant neoplasm of other female genital organs; Z90.6 Acquired absence of other parts of urinary tract; Z93.3 Colostomy status; Z93.6 Other artificial openings of urinary tract status; Z90.49 Acquired absence of other specified parts of digestive tract; Z98.84 Bariatric surgery status; Z92.21 Personal history of antineoplastic chemotherapy; Z92.3 Personal history of irradiation; Z79.891 Long term (current) use of opiate analgesic; Z66 Do not resuscitate
CPT/HCPCS: 36415; 36600; 74176; 74425; 80048; 80053; 81001; 81003; 82131; 82140; 82340; 82436; 82507; 82550; 82570; 82803; 83605; 83735; 83935; 84100; 84133; 84145; 84300; 85025; 86140; 87077; 87086; 87186; 96360; 96372; 97110; 97161; 99285; G0378; J1644; J3475; J7030; J7070; J7120; Q3014; Q9967

== ENCOUNTER 2022-02-12 09:21 | Outpatient (CLI) | payer MEDICARE, MEDICAID, SELFPAY ==
--- NOTE | 2022-02-12 09:41 | US_ITS ---
WS: [id number] RENAL ULTRASOUND HISTORY: stone COMPARISON: None available. TECHNIQUE: 2-D and color Doppler imaging of the kidney submitted. Right kidney: 10.1 cm x 4.5 cm x 3.1 cm. Moderate distention of the RIGHT renal pelvis as seen on prior imaging studies. There is increased ec hogenicity. Calcification superior pole measures 9 x 4 mm. Small cyst mid kidney measures 2.0 x 1.4 c m. Left kidney: 8.6 cm x 3.1 cm x 4.5 cm. Small size kidney with moderate hydronephrosis. Several small cysts within the LEFT kidney. These are simple cysts with the largest measuring 1.7 x 1.8 cm. There is also a branching calcification from t he mid to lower renal pelvis with a maximum diameter of 2.1 cm. Aorta: Not visualized. Urinary Bladder: Nondistended. Patient has an ileal conduit. US/US renal BI* [id number] IMPRESSION: 1. Mild bilateral hydronephrosis. The RIGHT hydronephrosis appears improved as compared to the CT of 02/06/2022. 2. Bilateral renal calculi and bilateral renal cysts. 3. Staghorn calculus mid to lower LEFT kidney.
--- NOTE | 2022-02-12 09:41 | XR_ITS ---
WS: [id number], AP view, 02/12/2022 Clinical Data: stone Comparison: CT abdomen pelvis, 02/06/2022 Findings: There is a 1.4 cm calcification overlying the right ilium which represents a right renal calcificatio n. There is a 3.5 cm calcification overlying the left kidney, again a left renal calcification. There is a density in the pelvis overlying the sacrum which has the appearance of a tablet. There are clip s in the upper abdomen from surgery. There is a clip overlying the left pubic ramus and in both ingui nal regions from surgery. The bowel gas pattern shows minimal air but no evidence of obstruction. The re is a right lower quadrant ileostomy. No abnormal intraabdominal masses are seen. There is no dilatated small bowel or evidence of obstruct ion. XR/XR KUB [id number] Impression: 1. Bilateral renal calcifications unchanged. 2. Right lower quadrant ileostomy or ileal conduit. 3. Multiple surgical clips in the upper abdomen and in the inguinal regions.
== END 2022-02-12 09:22 | disposition home or self-care (01) ==
LOC: RAD 09:26
PROVIDERS: PCP Family Medicine; Visit Provider Urology
DX: N20.0 Calculus of kidney (principal); N13.30 Unspecified hydronephrosis; N28.1 Cyst of kidney, acquired
CPT/HCPCS: 74018; 76770

== ENCOUNTER 2022-02-26 15:48 | Inpatient (IN) | payer MEDICARE, MEDICAID, SELFPAY ==
[2022-02-26] VITALS (12 sets, daily range): BP systolic 115–154; BP diastolic 55–82; PULSE 85–120; RESP 16–18; O2SAT 98–100
--- NOTE | 2022-02-26 15:52 | W.ED.SOB ---
HPI - SOB/Dyspnea General: Chief Complaint: Shortness of Breath/Dyspnea Stated Complaint: SOB Time Seen by Provider: 02/26/22 15:51 History of Present Illness: HPI Narrative: Ms. Inman is a 66-year-old lady with history of urinary catheter, ostomy presenting to the emergency department due to shortness of breath. Onset of symptoms was last night and gradual. Notes mild cough but no other infectious symptoms. Symptoms are progressed and are moderate in intensity and worse with exertion. No associated chest pain. Denies frequent similar episodes in the past. No sick contact. No other specific changes in health, exacerbating, or alleviating factors identified. Onset (ago): day(s) Timing: progressively worsening Severity: moderate Exacerbating factors: exertion Associated symptoms: Reports no associated symptoms Review of Systems General: Reports: 10 or more systems reviewed and unremarkable except in HPI and below PFSH ED PFSH: Medical History (Updated 03/01/22 @ 15:31 by Franc Lopez MD) Abdominal fluid collection LORRI (acute kidney injury) Chronic diarrhea Chronic pain Colostomy in place DDD (degenerative disc disease) DJD (degenerative joint disease) of cervical spine Fatigue Fibromyalgia Gram-negative bacteremia Hair loss History of cancer Hydronephrosis Metabolic acidosis Pain medication contract needed Protein-energy malnutrition Severe protein-energy malnutrition Staghorn renal calculus Vulvar cancer Surgical History History of colostomy History of gastric bypass History of urinary diversion procedure History of urostomy Social History Smoking and tobacco status: never smoked Alcohol intake: never Female Reproductive History: Spontaneous abortions: No Physical Exam Const: COMMON NORMALS: alert GENERAL APPEARANCE: cooperative, well developed and ill appearing (Chronically) HENMT: COMMON NORMALS: normocephalic and atraumatic HEAD & SCALP: normocephalic and atraumatic THROAT: posterior oropharynx normal Eye: COMMON NORMALS: conjunctivae normal CONJUNCTIVA: Yes conjunctivae normal SCLERA: sclerae normal Neck/C-Spine: COMMON NORMALS: supple GENERAL: Yes trachea midline Resp: COMMON NORMALS: clear to auscultation bilaterally EFFORT & INSPECTION: Yes able to speak in complete sentences AUSCULTATION: clear to auscultation bilaterally Cardio: COMMON NORMALS: regular rate and regular rhythm RATE: regular rate RHYTHM: regular rhythm GI: COMMON NORMALS: Soft to palpation PALPATION: Yes Soft to palpation and No Tenderness to palpation present (GI) Extremity: GENERAL: Yes normal exam except as noted and No edema Neuro: COMMON NORMALS: moves all extremities SENSORIUM/ORIENTATION: Yes alert and No Orientation impaired Psych: COMMON NORMALS: mental status grossly normal and Normal thought process present THOUGHT PROCESS: Normal thought process present Course Vital Signs: Vital signs: Vital Signs Temperature 98.6 F 03/07/22 12:00 Pulse Rate 86 03/07/22 12:00 Respiratory Rate 18 03/07/22 18:45 Blood Pressure 124/69 03/07/22 12:00 Pulse Oximetry 97 03/07/22 12:00 Oxygen Delivery Me thod 03/07/22 12:00 MDM - SOB/Dyspnea Medical Decision Making 66-year-old lady presenting with respiratory symptoms. Exam as above. EKG notable for sinus rhythm, no STEMI. Labs notable for significant leukocytosis and hemoconcentration compared to prior. Metabolic panel with marked abnormality and LORRI. Likely metabolic acidosis with respiratory partial compensation. UTI difficult to exclude given ileal conduit. Chest x-ray with no lobar consolidation or pneumothorax. Given severity of patient's illness without clear etiology advanced imaging is necessary. CT imaging appears somewhat similar to prior. Abnormal overall. During ED course patient given fluids, antibiotics. Most likely cause of patient symptoms is somewhat unclear though patient has significant metabolic derangement and LORRI requiring further inpatient management. The results of ED evaluation were discussed with the patient including plan for admission due to requirement for level of care not available if discharged to prevent significant worsening/deterioration. Patient agreeable with plan. Discussed with hospitalist service who was agreeable to admit patient. Medical Records I reviewed the patient's medical records. Lab Data I reviewed the patient's lab results. 02/26/22 17:26 02/26/22 17:26 Labs/Radiology: Radiology Impressions Chest X-Ray 02/26/22 16:10 IMPRESSION: Negative for infiltrate. Chest/Abdomen/Pelvis CT 02/26/22 18:17 IMPRESSION: 1. Negative for airspace infiltrates 2. Coronary artery atherosclerotic calcifications. 3. Emphysematous changes. 4. Scattered calcified benign granulomas. IMPRESSION: 1. 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 2. Right kidney interpolar region nonobstructive calyceal stone, similar to prior exam. 3. Left kidney appears duplicated with a lower pole nonobstructive staghorn calculus, similar to prior exam. 4. Severe left hydronephrosis and hydroureter, distal extent of the ureter is not well seen given bowel loops and air-fluid collection in the pelvis, similar to prior exam. 5. Complex collection of fluid and air in the urinary bladder measuring at least 12 cm, similar to prior exam again may reflect a dilated cecum or part of the ileal conduit, a CT with intravenous and enteric contrast could help better define this. 6. Cholecystectomy. 7. Several left kidney cysts, negative for follow-up advised. Laboratory Results WBC 17.2 10^3/uL (4.0-10.0) H 02/26/22 17: RBC 3.85 10^6/uL (4.1-5.3) L 02/26/22 17: Hgb 11.5 g/dL (11.5-15.3) 02/26/22 17: Hct 37.3 % (37.0-47.0) 02/26/22 17: MCV 96.9 fl (81-99) 02/26/22 17: MCH 29.9 pg (28.0-34.0) 02/26/22 17: MCHC 30.8 g/dL (30.0-36.0) 02/26/22 17: RDW 18.2 % (12.1-15.1) H 02/26/22 17: Plt Count 182 10^3/cmm (130-400) 02/26/22 17: MPV 11.2 fL (7.4-10.4) H 02/26/22 17: Neut % (Auto) 90.7 % 02/26/22 17: Lymph % (Auto) 1.9 % 02/26/22 17: [place] % (Auto) 4.4 % 02/26/22 17: Eos % (Auto) 0.3 % 02/26/22 17: Baso % (Auto) 0.6 % 02/26/22 17: Neut # (Auto) 15.54 10^3/uL (1.8-7.7) H 02/26/22 17: Lymph # (Auto) 0.3 10^3/uL (0.8-4.8) L 02/26/22 17: [place] # (Auto) 0.8 10^3/uL (0.2-0.9) 02/26/22 17: Eos # (Auto) 0.1 10^3/uL (0.0-0.8) 02/26/22: Baso # (Auto) 0.1 10^3/uL (0.0-0.1) 02/26/22 17: Nucleated RBC % (auto) 0 % 02/26/22: Nucleated RBCs # 0.0 /100WBC 02/26/22 17: Specimen Type Arterial 02/26/22 20:14 Sample Site Brachial, right 02/26/22 20:14 ABG pH 7.14 (7.35-7.45) L* 02/26/22 20:14 ABG pCO2 15.6 mmHg (35-45) L* 02/26/22 20:14 ABG pO2 124.0 mmHg (80.0-100.0) H 02/26/22 20:14 ABG HCO3 5.3 mmol/L (22-26) L 02/26/22 20:14 ABG Base Excess -21.8 mmol/L (-2.0-2.0) L 02/26/22 20:14 Blane Test N/a 02/26/22 20:14 Hematocrit 32.6 % (37-47) L 02/26/22 20:14 O2 Delivery Device Room air 02/26/22 20:14 Clinical Informatics Director ID Dylan 02/26/22 20:14 Sodium 119 mmol/L (136-145) L* 02/26/22 17: Potassium 3.6 mmol/L (3.5-5.1) 02/26/22 17: Chloride 95 mmol/L (98-107) L 02/26/22 17: Carbon Dioxide 6 mmol/L (22-29) L* 02/26/22 17:26 Anion Gap 21.6 (5-19) H 02/26/22 17:26 BUN 42 mg/dL (8-23) H 02/26/22 17:26 Creatinine 2.6 mg/dL (0.5-0.9) H 02/26/22 17:26 GFR Calculation 18.4 mL/min (90-130) L 02/26/22 17:26 Glucose 153 mg/dL (65-115) H 02/26/22 17:26 Calculated Osmolality 262 mOsm/kg (285-295) L 02/26/22 17:26 Lactic Acid 1.6 mmol/L (0.5-2.2) 02/26/22 19: Calcium 8.4 mg/dL (8.5-10.5) L 02/26/22 17:26 Magnesium 2.2 mg/dL (1.7-2.3) 02/26/22 17:26 Total Bilirubin 0.3 mg/dL (0.15-1.2) 02/26/22 17:26 AST 12 U/L (0-32) 02/26/22 17:26 ALT 7 U/L (0-33) 02/26/22 17:26 Alkaline Phosphatase 168 U/L (35-105) H 02/26/22 17:26 Troponin T Baseline 33 ng/L (0-10) H 02/26/22 17:26 Troponin T 120 Minute 31.04 ng/L (0-10) H 02/26/22 19:22 Delta Troponin T -1.96 ABS# (0-10) L 02/26/22 19:22 C-Reactive Protein 245.4 mg/L (0.0-4.9) H 02/26/22 17:26 NT-Pro-B Natriuret Pep 1551 pg/mL (0-125) H 02/26/22 17:26 Total Protein 6.4 g/dL (6.6-8.7) L 02/26/22 17:26 Albumin 2.9 g/dL (3.5-5.2) L 02/26/22 17:26 Globulin 3.5 g/dL (1.3-4.6) 02/26/22 17:26 Procalcitonin 58.21 ng/mL (0-0.5) H 02/26/22 17:26 TSH 0.39 uIU/mL (0.27-4.20) 02/26/22 17:26 Urine Color Light yellow (Yellow) 02/26/22 19:58 Urine Appearance Turbid (CLEAR) A 02/26/22 19:58 Urine pH 6 (5-7) 02/26/22 19:58 Ur Specific [place] 1.015 (1.005-1.030) 02/26/22 19:58 Urine Protein 2+ (Negative) H 02/26/22 19:58 Urine Glucose (UA) Norm (Normal) 02/26/22 19:58 Urine Ketones Negative (Negative) 02/26/22 19:58 Urine Blood 3+ (Negative) H 02/26/22 19:58 Urine Nitrate Negative (Negative) 02/26/22 19:58 Urine Bilirubin Neg (Negative) 02/26/22 19:58 Urine Urobilinogen Norm mg/dL (Negative) 02/26/22 19:58 Ur Leukocyte Esterase 2+ (Negative) H 02/26/22 19:58 Urine RBC Too numerous to cnt /hpf (0-2) H 02/26/22 19:58 Urine WBC Too numerous to cnt /hpf (0-5) H 02/26/22 19:58 Ur Squamous Epith Cells None /hpf (0-5) 02/26/22 19:58 Amorphous Sediment Not Reportable 02/26/22 19:58 Urine Bacteria 4+ /hpf (NONE) H 02/26/22 19:58 Urine Mucus 3+ /hpf 02/26/22 19:58 Coronavirus 229E (PCR) Not detected (NOT DETECT) 02/26/22 19:58 SARS-CoV-2 (PCR) Not detected (NOT DETECT) 02/26/22 19:58 Critical Care Time Critical Care Time: Critical Care Time: Yes Total Critical Care Time: 45 Attestation: Due to a high probability of clinically significant, possibly life threatening deterioration, the patient required my highest level of attention and preparedness to intervene emergently and I personally spent this critical care time directly and personally managing the patient. This critical care time included obtaining a history; examining the patient; pulse oximetry; ordering and review of laboratory and imaging studies; arranging urgent treatment with development of a management plan; evaluation of patient's response to treatment; frequent reassessment; and, discussions with other providers as applicable. It was exclusive of separately billable procedures. Primary system involved in metabolic. Discharge Plan Discharge Patient Disposition: Admitted As Inpatient Admit Provider: Caitlyn Parry Clinical Impression: Metabolic acidosis, Dehydration, Leukocytosis Condition: Stable Discharge Diet: Regular Discharge Activity: Resume usual activity and Increase activity as tolerated Coding Level of Care Code ED Credit Underwriter for Chg Fwd Exam Comprehensive
--- NOTE | 2022-02-26 16:10 | XRR_ITS ---
PROCEDURE INFORMATION: Exam: XR Chest Exam date and time: 02/26/2022 5:20 PM Age: 66 years old Clinical indication: Shortness of breath; Additional info: SOB TECHNIQUE: Imaging protocol: Radiologic exam of the chest. Views: 1 view. COMPARISON: [place] [id number] 01/15/2022 11:13 PM FINDINGS: Tubes, catheters and devices: Cervical spine surgical hardware. Lungs: Scattered calcified benign granulomas. Pleural spaces: Unremarkable. No pleural effusion. No pneumothorax. Heart/Mediastinum: Unremarkable. No cardiomegaly. Bones/joints: Unremarkable. XR/XR chest 1V portable [id number] IMPRESSION: Negative for infiltrate.
[2022-02-26 17:44] LABS: Basophils # 0.1 10^3/uL (0.0-0.1); Basophils % 0.6 %; Eosinophils # 0.1 10^3/uL (0.0-0.8); Eosinophils % 0.3 %; Hematocrit 37.3 % (37.0-47.0); Hemoglobin 11.5 g/dL (11.5-15.3); Lymphocytes # 0.3 10^3/uL (0.8-4.8); Lymphocytes % 1.9 %; Mean Corpuscular HGB Conc 30.8 g/dL (30.0-36.0); Mean Corpuscular Hemoglobin 29.9 pg (28.0-34.0); Mean Corpuscular Volume 96.9 fl (81-99); Mean Platelet Volume 11.2 fL (7.4-10.4); Monocytes # 0.8 10^3/uL (0.2-0.9); Monocytes % 4.4 %; Neutrophils # 15.54 10^3/uL (1.8-7.7); Neutrophils % 90.7 %; Nucleated Red Blood Cells % 0 %; Platelet Count 182 10^3/cmm (130-400); Red Blood Count 3.85 10^6/uL (4.1-5.3); Red Cell Distribution Width 18.2 % (12.1-15.1); White Blood Count 17.2 10^3/uL (4.0-10.0)
--- NOTE | 2022-02-26 17:51 | ECG_ITS ---
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 Measurements Intervals Kelly Rate: 85 P: 73 AL: 154 QRS: 81 QRSD: 85 T: 78 QT: 370 QTc: 442 Interpretive Statements SINUS RHYTHM Compared to ECG 01/19/2022 09:38:40 Sinus bradycardia no longer present Sinus arrhythmia no longer present Electronically Signed On 02-27-2022 7:09:55 LICENSED EMBALMER by Alonzo Portillo M.D. [id number]
[2022-02-26 18:05] LABS: Troponin(5th) Baseline 33 ng/L (0-10)
[2022-02-26 18:16] LABS: NT Pro B Type Natriuretic Pept 1551 pg/mL (0-125); Procalcitonin 58.21 ng/mL (0-0.5); Thyroid Stimulating Hormone 0.39 uIU/mL (0.27-4.20)
--- NOTE | 2022-02-26 18:17 | CTR_ITS ---
PROCEDURE INFORMATION: Exam: CT Chest Without Contrast; Diagnostic Exam date and time: 02/26/2022 7:31 PM Age: 66 years old Clinical indication: Other: SOB; Shortness of breath; Additional info: SOB, leukocytosis ? source of infection, HX abd surgeries TECHNIQUE: Imaging protocol: Diagnostic computed tomography of the chest without contrast. Radiation optimization: All CT scans at this facility use at least one of these dose optimization techniques: automated exposure control; mA and/or kV adjustment per patient size (includes targeted exams where dose is matched to clinical indication); or iterative reconstruction. COMPARISON: [place] [id number] 01/15/2022 11:13 PM RADIATION DOSE METRICS: Total DLP (mGy-cm): 512.51 FINDINGS: Lungs: Emphysematous changes. Pleural spaces: Unremarkable. No pneumothorax. No pleural effusion. Heart: Coronary artery atherosclerotic calcifications. Lymph nodes: Unremarkable. No enlarged lymph nodes. Vasculature: Unremarkable. No aortic aneurysm. Bones/joints: Unremarkable. No acute fracture. Soft tissues: Unremarkable. Other findings: Scattered calcified benign granulomas. PROCEDURE INFORMATION: Exam: CT Abdomen And Pelvis Without Contrast Exam date and time: 02/26/2022 7:31 PM Age: 66 years old Clinical indication: Other: SOB; Shortness of breath; Additional info: SOB, leukocytosis ? source of infection, HX abd surgeries TECHNIQUE: Imaging protocol: Computed tomography of the abdomen and pelvis without contrast. Radiation optimization: All CT scans at this facility use at least one of these dose optimization techniques: automated exposure control; mA and/or kV adjustment per patient size (includes targeted exams where dose is matched to clinical indication); or iterative reconstruction. COMPARISON: CT kidney stone [id number] 02/06/2022 2:46 AM RADIATION DOSE METRICS: Total DLP (mGy-cm): 512.51 FINDINGS: Liver: Normal. No mass. Gallbladder and bile ducts: Cholecystectomy. Pancreas: Normal. No ductal dilation. Spleen: Normal. No splenomegaly. Adrenal glands: Normal. No mass. Kidneys and ureters: Severe right hydronephrosis and hydroureter with a duplicated renal collecting system extending to the pelvic region, however, given multiple fluid-filled bowel loops and on air fluid collection in the pelvis, the distal extent of the ureter is not visualized. Right kidney interpolar region nonobstructive calyceal stone. Left kidney appears duplicated with a lower pole nonobstructive staghorn calculus. Severe left hydronephrosis and hydroureter, distal extent of the ureter is not well seen given bowel loops and air-fluid collection in the pelvis. Several left kidney cysts, negative for follow-up advised. Stomach and bowel: Complex collection of fluid and air in the urinary bladder measuring at least 12 cm, similar to prior exam again may reflect a dilated cecum or part of the ileal conduit, a CT with intravenous and enteric contrast could help better define this. Appendix: No evidence of appendicitis. Intraperitoneal space: Unremarkable. No free air. No significant fluid collection. Vasculature: See Stomach and bowel finding. Lymph nodes: Unremarkable. No enlarged lymph nodes. Urinary bladder: See Stomach and bowel finding. Reproductive: Unremarkable as visualized. Bones/joints: Unremarkable. No acute fracture. Soft tissues: Unremarkable. CT/[place] [id number] IMPRESSION: 1. Negative for airspace infiltrates 2. Coronary artery atherosclerotic calcifications. 3. Emphysematous changes. 4. Scattered calcified benign granulomas. IMPRESSION: 1. 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 2. Right kidney interpolar region nonobstructive calyceal stone, similar to prior exam. 3. Left kidney appears duplicated with a lower pole nonobstructive staghorn calculus, similar to prior exam. 4. Severe left hydronephrosis and hydroureter, distal extent of the ureter is not well seen given bowel loops and air-fluid collection in the pelvis, similar to prior exam. 5. Complex collection of fluid and air in the urinary bladder measuring at least 12 cm, similar to prior exam again may reflect a dilated cecum or part of the ileal conduit, a CT with intravenous and enteric contrast could help better define this. 6. Cholecystectomy. 7. Several left kidney cysts, negative for follow-up advised.
[2022-02-26 18:29] LABS: Alanine Aminotransferase 7 U/L (0-33); Albumin Level 2.9 g/dL (3.5-5.2); Alkaline Phosphatase 168 U/L (35-105); Anion Gap 21.6 (5-19); Aspartate Amino Transferase 12 U/L (0-32); Blood Urea Nitrogen 42 mg/dL (8-23); C Reactive Protein 245.4 mg/L (0.0-4.9); Calcium 8.4 mg/dL (8.5-10.5); Chloride 95 mmol/L (98-107); Globulin 3.5 g/dL (1.3-4.6); Glomerular Filtration Rate 18.4 mL/min (90-130); Glucose 153 mg/dL (65-115); Magnesium 2.2 mg/dL (1.7-2.3); Osmolality Calculated 262 mOsm/kg (285-295); Potassium 3.6 mmol/L (3.5-5.1); Total Bilirubin 0.3 mg/dL (0.15-1.2); Total Protein 6.4 g/dL (6.6-8.7)
[2022-02-26 18:42] LABS: Carbon Dioxide 6 mmol/L (22-29); Sodium 119 mmol/L (136-145)
[2022-02-26] MEDS: cefepime 2,000 MG in sodium chloride 0.9% (plus) 50 ML 100 MG IV (19:18)
[2022-02-26] MEDS: sodium chloride 0.9% 1,000 ML 999 ML IV (19:18)
[2022-02-26 19:59] LABS: Lactic Sepsis W/Reflex 1.6 mmol/L (0.5-2.2)
[2022-02-26 20:05] LABS: Troponin 5 2HR 31.04 ng/L (0-10); Troponin 5 2HR Delta -1.96 ABS# (0-10)
[2022-02-26 20:13] LABS: Arterial Blood Gas Hematocrit 32.6 % (37-47); Base Excess ABG -21.8 mmol/L (-2.0-2.0); Blood Gas Sample Type Arterial; HCO3 ABG 5.3 mmol/L (22-26)
[2022-02-26 20:14] LABS: Blood Gas Sample Site Brachial, right; Oxygen Device ROOM AIR
[2022-02-26] MEDS: vancomycin 1,000 MG in sodium chloride 0.9% 250 ML 250 MG IV (20:14)
[2022-02-26 20:17] LABS: ABG PCO2 15.6 mmHg (35-45); ABG PH Result 7.14 (7.35-7.45)
[2022-02-26 20:30] LABS: Add Urine Microscopic? YES; Bilirubin Urine Neg (Negative); Blood Urine 3+ (Negative); Glucose Urine UA Norm (Normal); Ketones Urine Negative (Negative); Leukocyte Esterase Urine 2+ (Negative); Nitrate Urine Negative (Negative); Protein Urine 2+ (Negative); Specific Gravity, Urine 1.015 (1.005-1.030); Urine Appearance Turbid (CLEAR); Urine Color Light Yellow (Yellow); Urobilinogen Urine Norm (Negative); pH Urine 6 (5-7)
[2022-02-26 20:38] LABS: Add Urine Culture? Yes; Bacteria Urine 4+ /hpf; Mucus Urine 3+ /hpf; RBC Urine TOO NUMEROUS TO CNT /hpf (0-2); WBC Urine TOO NUMEROUS TO CNT /hpf (0-5)
[2022-02-26 22:39] LABS: Adenovirus Not Detected (NOT DETECT); Chlamydia Pneumoniae Not Detected (NOT DETECT); Coronavirus 229E,HKU1,NL63,OC4 Not Detected (NOT DETECT); Human Metapneumovirus Not Detected (NOT DETECT); Human Rhinovirus/Enterovirus Not Detected (NOT DETECT); Influenza A Not Detected (NOT DETECT); Influenza A H1 Not Detected (NOT DETECT); Influenza A H1-2009 Not Detected (NOT DETECT); Influenza A H3 Not Detected (NOT DETECT); Influenza B Not Detected (NOT DETECT); Mycoplasma Pneumoniae Not Detected (NOT DETECT); Parainfluenza Virus Type 1 Not Detected (NOT DETECT); Parainfluenza Virus Type 2 Not Detected (NOT DETECT); Parainfluenza Virus Type 3 Not Detected (NOT DETECT); Parainfluenza Virus Type 4 Not Detected (NOT DETECT); Respiratory Syncytial Virus A Not Detected (NOT DETECT); Respiratory Syncytial Virus B Not Detected (NOT DETECT); SARS-COV-2 Not Detected (NOT DETECT)
[2022-02-26 23:20] LABS: Troponin 5 6HR 29.29 ng/L (0-10)
[2022-02-26 23:22] LABS: Troponin 5 6HR Delta -3.71 ng/L (0-12)
[2022-02-27] VITALS (159 sets, daily range): BP systolic 111–165; BP diastolic 58–114; PULSE 73–120; RESP 12–36; TEMP 36.6–36.8; O2SAT 70–100; BMI 14.1
[2022-02-27] MEDS: sodium bicarbonate 150 MEQ in dextrose 5% 1,000 ML 50 MEQ IV ×2 (00:29→23:35)
[2022-02-27] MEDS: lactated ringers 1,000 ML 75 ML IV (00:37)
[2022-02-27] MEDS: heparin 5,000 unit/mL INJ 1 mL 5000 UNIT SUBCUT ×3 (00:37→23:35)
[2022-02-27 01:21] LABS: Alanine Aminotransferase 7 U/L (0-33); Alkaline Phosphatase 159 U/L (35-105); Anion Gap 19.8 (5-19); Aspartate Amino Transferase 11 U/L (0-32); Blood Urea Nitrogen 42 mg/dL (8-23); Calcium 8.3 mg/dL (8.5-10.5); Chloride 105 mmol/L (98-107); Globulin 3.3 g/dL (1.3-4.6); Glomerular Filtration Rate 20.1 mL/min (90-130); Glucose 86 mg/dL (65-115); Osmolality Calculated 276 mOsm/kg (285-295); Potassium 3.8 mmol/L (3.5-5.1); Sodium 128 mmol/L (136-145); Total Bilirubin 0.4 mg/dL (0.15-1.2); Total Protein 6.3 g/dL (6.6-8.7)
[2022-02-27 01:31] LABS: Carbon Dioxide 7 mmol/L (22-29)
[2022-02-27] MEDS: piperacillin-tazobactam 3.375 GM in sodium chloride 0.9% (plus) 50 ML IV ×2 (02:36→12:13)
[2022-02-27 06:43] LABS: Basophils # 0.1 10^3/uL (0.0-0.1); Basophils % 0.7 %; Hematocrit 33.8 % (37.0-47.0); Hemoglobin 10.6 g/dL (11.5-15.3); Lymphocytes # 0.4 10^3/uL (0.8-4.8); Lymphocytes % 2.6 %; Mean Corpuscular HGB Conc 31.4 g/dL (30.0-36.0); Mean Corpuscular Hemoglobin 30.2 pg (28.0-34.0); Mean Corpuscular Volume 96.3 fl (81-99); Mean Platelet Volume 12.3 fL (7.4-10.4); Monocytes # 0.5 10^3/uL (0.2-0.9); Monocytes % 3.1 %; Neutrophils # 13.82 10^3/uL (1.8-7.7); Neutrophils % 91.5 %; Nucleated Red Blood Cells % 0 %; Platelet Count 148 10^3/cmm (130-400); Red Blood Count 3.51 10^6/uL (4.1-5.3); Red Cell Distribution Width 18.2 % (12.1-15.1); White Blood Count 15.1 10^3/uL (4.0-10.0)
--- NOTE | 2022-02-27 07:04 | PC.NURSE ---
Patient arrived from ED 2350. Ileostomy and urostomy were both leaking were changed with patient's supplies. Patient reports attempts to stretch out bag replacements to save supplies. Patient complains of generalized lower abdominal pain radiating to hips. Left AC IV infiltrated and new 20g IV's were started in both the left and right AC. Patient's sacral pressure ulcer dressing was changed and cleansed.
[2022-02-27] MEDS: phosphorus 250 mg Tablet PO (08:05)
[2022-02-27] MEDS: pantoprazole DR 40 mg Tablet PO (08:05)
[2022-02-27 08:28] LABS: Slide Review Slide Review Perform
--- NOTE | 2022-02-27 08:41 | PM.HP ---
Providers/Chief Complaint Admitting Physician: Caitlyn Parry MD Primary Care Provider: Alexandre Edwards DO Chief Complaint: SOB History of Present Illness Deborah Inman is a 66 year old female with PMH vulvar cancer s/p ileostomy, ileal conduit, known chonic B/L hydronephrosis. last surgery 2019, no h/o chemoradiation , last known to be cancer free as of 2019, chronic pain. She presents to the emergency room today with feeling generalized unwell, having some fevers. She has been having difficulty managing her stomas at home, has had a lot of leakage around the stoma's, attempted to place tapes around stomas to keep them from leaking contents. Upon her arrival at the ER today she is found to have multiple electrolyte abnormalities including hyponatremia 119 upon arrival. This corrected to 128 within a matter of 6 hours after receiving IV fluid boluses. Additionally she is noted to have leukocytosis at 17, severe metabolic acidosis with pH of 7.14, CO2 15.6, PO2 124, bicarb of 5.3. Additionally has had LORRI with CKD, appears most recent baseline to be between 1.2-1.8 on the creatinine, currently she is at 2.6. She has had similar admissions in the past for multiple electrolyte abnormalities, managed conservatively. I had discussed the case with ER physician prior to her admission and due to concern for pyelonephritis as a result of vesicoureteric reflux versus obstruction had recommended transfer to a higher center where anterograde approach to deal with her staghorn calculi and or cystoscopy plus minus stenting may be able to be performed. Previously she was followed at [facility]. I was told that [facility] and [facility] were both contacted and there are no current beds available for her transfer. Patient had refused transfer up to [place] or [place]. She is therefore being admitted here for medical management. Review of Systems General: Reports: 10 or more systems reviewed and unremarkable except in HPI and below Const: Denies: fever(s), chills or body aches Eyes: Denies: change in vision, blurry vision or photophobia ENMT: Reports: hoarseness; Denies: throat pain, enlarged tonsils, odynophagia or nasal congestion Card: Denies: chest pain, palpitations, irregular heart rhythm, edema, swelling of feet/ankles, lightheadedness, pre-syncope, dyspnea on exertion or orthopnea Resp: Denies: dyspnea, productive cough, non-productive cough, wheezing, stridor, pain on inspiration, change in phlegm color, hemoptysis or chest congestion GI: Denies: abdominal pain, nausea, vomiting, hematemesis, coffee ground emesis, dysphagia, heartburn, diarrhea, constipation, GI cramping, change in stool character, hematochezia or melena : Denies: flank pain, difficulty voiding, dysuria, urinary frequency, urinary urgency, urinary hesitancy or hematuria Musc: Denies: neck pain, back pain, extremity pain, joint swelling, joint warmth or deformity Neuro: Denies: headache(s), numbness in extremities, weakness in extremities, sensory changes, difficulty walking, frequent falls, dizziness, vertigo, behavioral changes, Slurred speech present or seizure-like activity Psych: Denies: anxiety, depression, suicidal ideation or homicidal ideation Endo: Denies: polyuria, polydipsia, tired all the time, cold intolerance or hot flashes Bony/Lymph: Denies: easy bruising or easy bleeding Medications/Allergies Home Medications Medication Instructions Recorded Confirmed Last Taken Type modified lanolin 100 % topical 1 applic topical PRN PRN Dryness 01/22/22 02/26/22 Unknown Rx cream (Lanolin (HPA)) #21 grams naloxone 4 mg/actuation nasal 1 spray intranasal Q2M PRN opioid 01/22/22 02/26/22 Unknown Rx spray (Narcan) overdose #2 ea tizanidine 2 mg tablet 2 mg PO Q8H PRN muscle spasticity 01/22/22 02/26/22 Unknown Rx #60 tabs potassium chloride 10 mEq 10 meq PO DAILY #20 tabs 02/08/22 02/26/22 02/25/22 Rx tablet,extended release sodium bicarbonate 650 mg tablet 650 mg PO TID #100 tabs 02/08/22 02/26/22 02/25/22 Rx sodium di- and 1 tab PO DAILY #60 tabs 02/08/22 02/26/22 02/25/22 Rx monophosphate-potassium phos monobasic 250 mg tablet (Y-[id number]) oxycodone 5 mg tablet 7.5 mg PO Q6H PRN Moderate Pain 30 02/15/22 02/26/22 02/26/22 Rx days #84 tabs Allergies Allergy/AdvReac Type Severity Reaction Status Date / Time amitriptyline Allergy ADR-Halluci Verified 01/16/22 04:21 nating gabapentin Allergy ADR-Halluci Verified 01/16/22 04:21 nating haloperidol [From Haldol] Allergy ADR-Confusi Verified 01/16/22 04:21 on morphine Allergy Unconscious Verified 01/16/22 04:21 tiagabine [From Gabitril] Allergy ADR-Agitate Verified 01/16/22 04:21 d PFSH Acute PFSH: Medical History Abdominal fluid collection LORRI (acute kidney injury) Chronic diarrhea Chronic pain Colostomy in place DDD (degenerative disc disease) DJD (degenerative joint disease) of cervical spine Fatigue Fibromyalgia Hair loss History of cancer Hydronephrosis Metabolic acidosis Pain medication contract needed Severe protein-energy malnutrition Staghorn renal calculus Vulvar cancer Surgical History History of colostomy History of gastric bypass History of urinary diversion procedure History of urostomy Social History Smoking and tobacco status: never smoked Alcohol intake: never Female Reproductive History: Spontaneous abortions: No Vitals/I&O/Wt Last Vital Signs Temp 98.2 F 02/27/22 00:00 Pulse 111 H 02/27/22 06:00 Resp 18 02/27/22 05:05 BP 126/99 02/27/22 04:00 Pulse Ox 100 02/27/22 04:45 O2 Del Method 02/27/22 00:07 02/26/22 02/27/22 02/27/22 22:59 06:59 14:59 Intake Total 300 / 300 1453.75 / 1753.75 800 / 800 Output Total 1150 / 1150 Balance 300 / 300 1453.75 / 1753.75 -350 / -350 Weight last 48 hrs Weight 36.061 kg Weight 38.102 kg Physical Exam Narrative: General: Significantly cachectic female lying in bed, reports feeling cold wants to be covered in 3 blankets. HEENT: PERRLA, pupils bilaterally equal and reactive, pallors not present Chest: Normal vesicular breath sounds, no added sounds, equal good air entry bilaterally CVS: S1-S2 regular, no murmurs, no tachycardia, no gallops, no rubs Abdomen: Malnourished, 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 Colostomy with fecal contents, no gross diarrhea. Maceration noted over anterior abdominal wall likely from leakage from stoma's. Neuro: No focal deficits, no facial deformity, AO x3, power 5/5 in all limbs Data : 02/27/22 06:35 02/26/22 22:42 Micro: Microbiology 02/26/22 16:46 Blood Culture - Preliminary Blood SPECIMEN COLLECTED 02/26/22 16:38 Blood Culture - Preliminary Blood SPECIMEN COLLECTED A&P Assessment and plan (1) Metabolic acidosis: (2) Dehydration: (3) Leukocytosis: (4) Hyponatremia: (5) Acute kidney injury: Plan 66-year-old lady with a past medical history as outlined above presenting today with dehydration, possible sepsis, multiple electrolyte derangements including metabolic acidosis, hyponatremia. For the hyponatremia, patient has this for received 2 L of IV fluid bolus in the emergency room. Sodium went from 1 1 9-1 28 between 5:30 to 10:30 PM. We will start the patient on bicarb infusion with sodium bicarb at 50 cc an hour. Recheck sodium in 6 hours and trend every 6 hours. We will aim to correct no more than 8-10 mEq over 24 hours. Trend CMP every 6 hours. Dehydration may be related to high stoma outputs from her ileal conduit and ileostomy. Noted also to have LORRI on CKD which may be related to dehydration versus progressive hydronephrosis. Because of her persisting hydronephrosis is not entirely clear. This may be related to renal calculi versus reflux at the UPJ junction. 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 She will likely need an anterograde approach for further cystoscopic evaluation and percutaneous intervention for her calculi. Transfer to a higher center was recommended overnight for these reasons however it appears [facility] [place] were out of beds. Reportedly patient refused to be transferred to [place] or [place] per discussion with ER physician. She has previously responded well to medical management with IV fluids and correction of electrolyte abnormalities. We will attempt to continue the same for now. Concern for possible sepsis from pyelonephritis. We will start her on empiric treatment with piperacillin tazobactam for the same. Urine and blood cultures are pending. Previously urine culture and blood cultures have shown Klebsiella, E. coli, Providencia spp. Additionally noted to have some maceration over her anterior abdominal wall from stomas. Stoma and wound care for the same. Attestations Medical Necessity Statement*: Patient will need greater than 2 midnight admission for management of multiple electrolyte abnormalities, severe metabolic acidosis, hyponatremia, possible sepsis. Critical Care Time: The high probability of a clinically significant, sudden or life threatening deterioration of the patient's [renal,electrolytes,infectious] system(s) required my full and direct attention, intervention and personal management. The critical care time is as shown. This time is in addition to time spent performing any reported procedures but includes the following: [x] Data and vital sign review and interpretation [x] Patient assessment, examination and intervention [x] Documentation [x] Medication orders and management Coding Level of Care Code Acute Customer Relations Advisor for [facility] Diagnoses Metabolic acidosis E87.20 Dehydration E86.0 Leukocytosis D72.829 Hyponatremia E87.1 Acute kidney injury N17.9
[2022-02-27 09:34] LABS: Albumin Level 2.3 g/dL (3.5-5.2); Alkaline Phosphatase 131 U/L (35-105); Blood Urea Nitrogen 36 mg/dL (8-23); Chloride 103 mmol/L (98-107); Globulin 3.3 g/dL (1.3-4.6); Glomerular Filtration Rate 23.5 mL/min (90-130); Glucose 68 mg/dL (65-115); Total Bilirubin 0.4 mg/dL (0.15-1.2); Total Protein 5.6 g/dL (6.6-8.7)
[2022-02-27 09:35] LABS: Carbon Dioxide 6 mmol/L (22-29); Osmolality Calculated 267 mOsm/kg (285-295); Sodium 125 mmol/L (136-145)
[2022-02-27 09:57] LABS: ABG PH Result 7.29 (7.35-7.45); Alveolar-Arterial Oxygen Gradi 3.1 mmHg (5-10); Arterial Blood Gas Hematocrit 32.5 % (37-47); Base Excess ABG -17.4 mmol/L (-2.0-2.0); Blood Gas Allen Test Pos; Blood Gas Operator Identificat CAK; Blood Gas Sample Site Brachial, left; Blood Gas Sample Type Arterial; Carboxyhemoglobin 0.9 %THgb (0.4-20.1); Ionized Calcium Level - ABG 1.2 mmol/L (1.1-1.4); Methemoglobin 1.1 % (0.4-1.5); Oxygen Device ROOM AIR; Potassium Level - ABG 2.6 mmol/L (3.5-5.0); Total Hemoglobin 10.6 g/dL (12-16)
[2022-02-27 09:58] LABS: ABG PCO2 14.7 mmHg (35-45)
[2022-02-27] MEDS: sodium chloride 0.9% 1,000 ML 75 ML IV (10:05)
[2022-02-27 12:17] LABS: Blood Urea Nitrogen 33 mg/dL (8-23); Calcium 7.7 mg/dL (8.5-10.5); Chloride 104 mmol/L (98-107); Glomerular Filtration Rate 24.9 mL/min (90-130); Glucose 137 mg/dL (65-115); Osmolality Calculated 275 mOsm/kg (285-295); Sodium 128 mmol/L (136-145)
[2022-02-27 12:21] LABS: Carbon Dioxide 9 mmol/L (22-29)
[2022-02-27] MEDS: sodium bicarbonate 650 mg Tablet PO ×2 (14:05→21:07)
--- NOTE | 2022-02-27 16:21 | PM.PN ---
Subjective Subjective: Admitted overnight. Patient had labs appreciated. Examination patient lying comfortably in bed. Stated is awake and alert. Denies any nausea, vomiting, headache. Patient having ostomy and urostomy in place. Vitals/I&O/Wt Last Vital Signs Temp 98.2 F 02/27/22 00:00 Pulse 99 02/27/22 12:15 Resp 16 02/27/22 12:15 BP 146/74 02/27/22 12:15 Pulse Ox 100 02/27/22 12:15 O2 Del Method 02/27/22 00:07 02/27/22 02/27/22 02/27/22 06:59 14:59 22:59 Intake Total 1453.75 / 1753.75 1100 / 1100 Output Total 2500 / 2500 Balance 1453.75 / 1753.75 -1400 / -1400 Weight last 48 hrs Weight 36.061 kg Weight 38.102 kg Physical Exam Narrative: General: Significantly cachectic female lying in bed, reports feeling cold wants to be covered in 3 blankets. HEENT: PERRLA, pupils bilaterally equal and reactive, pallors not present Chest: Normal vesicular breath sounds, no added sounds, equal good air entry bilaterally CVS: S1-S2 regular, no murmurs, no tachycardia, no gallops, no rubs Abdomen: Malnourished, 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 Colostomy with fecal contents, no gross diarrhea. Maceration noted over anterior abdominal wall likely from leakage from stoma's. Neuro: No focal deficits, no facial deformity, AO x3, power 5/5 in all limbs Data : 02/27/22 06:35 02/27/22 11:48 Micro: Microbiology 02/26/22 16:38 Blood Culture - Preliminary Blood 02/26/22 16:46 Blood Culture - Preliminary Blood A&P Assessment and plan (1) Metabolic acidosis: Most likely secondary to dehydration. Continue with normal saline at 75 cc/h along with sodium bicarb infusion at 50 cc/h. Monitor BMP every 4 hours. Check into output charting. Restart home dose of sodium bicarbonate. (2) Dehydration: IV fluid as above. (3) Leukocytosis: Could be secondary dehydration but cannot rule out UTI/pyelonephritis given complicated urinary anatomy, bilateral hydronephrosis and calculi. Continue with Zosyn for now. Culture history appreciated. Monitor blood culture, urine culture. (4) Hyponatremia: Again secondary dehydration. IV fluid as above. Monitor every 4 hours. (5) Acute kidney injury: Baseline creatinine seems to be 1.4-1.6. Currently on admission 2.6. Secondary dehydration. Medical reconciliation done for nephrotoxic drugs. Plan Analgesia: Oxycodone 5 mg every 8 hour as needed. Glycemic control: Not needed. Check A1c. Nutrition: Regular diet with protein shakes in each meal CODE STATUS: DNR/DNI PUD prophylaxis: Protonix DVT prophylaxis: Heparin 501 every 12 hourly Discharge planning: Given recurrent admissions secondary to dehydration, metabolic acidosis with electrolyte abnormality along with chronic sickness patient would do better for likely short-term SNF placement. Discussed with the patient. She would like to think further. We discussed with family again. Case management Alerted. Continue with care at ICU. This documentation was created by [email or web address] local company tanker driver software. Every effort was made to ensure accuracy of local company tanker driver. Any obvious errors or omissions should be clarified with the author of the document. Attestations Medical Necessity Statement*: Requires further hospitalization for management of metabolic acidosis, hyponatremia and acute kidney injury secondary dehydration in a patient with chronic colostomy, urostomy secondary to vulvar cancer, leukocytosis while UTI is ruled out Critical Care Time: The high probability of a clinically significant, sudden or life threatening deterioration of the patient's [renal] system(s) required my full and direct attention, intervention and personal management. The critical care time is as shown. This time is in addition to time spent performing any reported procedures but includes the following: [x] Data and vital sign review and interpretation [x] Patient assessment, examination and intervention [x] Documentation [x] Medication orders and management Critical Care Time (min): 60 Coding Level of Care Code Acute Cash Room Clerk for g Fwd Diagnoses Metabolic acidosis E87.20 Dehydration E86.0 Leukocytosis D72.829 Hyponatremia E87.1 Acute kidney injury N17.9
[2022-02-27 17:11] LABS: Anion Gap 17.5 (5-19); Blood Urea Nitrogen 29 mg/dL (8-23); Calcium 7.4 mg/dL (8.5-10.5); Carbon Dioxide 10 mmol/L (22-29); Chloride 111 mmol/L (98-107); Glomerular Filtration Rate 26.4 mL/min (90-130); Glucose 199 mg/dL (65-115); Osmolality Calculated 293 mOsm/kg (285-295); Sodium 136 mmol/L (136-145)
[2022-02-27 17:20] LABS: Potassium 2.5 mmol/L (3.5-5.1)
[2022-02-27] MEDS: potassium chloride ER 20 mEq Tablet 80 MEQ PO (17:41)
[2022-02-27] MEDS: sodium chlor 0.45% +KCl 20 mEq 20 MEQ/1,000 ML BAG 75 MEQ IV (17:41)
--- NOTE | 2022-02-27 18:21 | PC.NURSE ---
Colostomy changed today. No leaking present at this time.
[2022-02-27] MEDS: oxyCODONE 5 mg IR Tab/Cap PO (19:18)
[2022-02-27 20:42] LABS: Blood Urea Nitrogen 27 mg/dL (8-23); Calcium 7.3 mg/dL (8.5-10.5); Carbon Dioxide 11 mmol/L (22-29); Chloride 110 mmol/L (98-107); Glomerular Filtration Rate 26.4 mL/min (90-130); Glucose 182 mg/dL (65-115); Osmolality Calculated 294 mOsm/kg (285-295); Sodium 137 mmol/L (136-145)
[2022-02-28] VITALS (14 sets, daily range): BP systolic 120–139; BP diastolic 66–86; PULSE 77–101; RESP 13–26; TEMP 36.7–37.1; O2SAT 92–100
--- NOTE | 2022-02-28 00:55 | PC.NURSE ---
0050 report called to RUBEN Barker [id number] patient transported via bed to room 259 - 1; tolerated well
[2022-02-28] MEDS: piperacillin-tazobactam 3.375 GM in sodium chloride 0.9% (plus) 50 ML IV ×2 (01:17→16:08)
[2022-02-28] MEDS: lanolin oint 7 gm 1 APPLIC TOPICAL (01:17)
[2022-02-28 06:04] LABS: Basophils # 0.1 10^3/uL (0.0-0.1); Basophils % 0.4 %; Eosinophils # 0.1 10^3/uL (0.0-0.8); Eosinophils % 0.5 %; Hematocrit 28.4 % (37.0-47.0); Hemoglobin 9.1 g/dL (11.5-15.3); Lymphocytes # 0.4 10^3/uL (0.8-4.8); Lymphocytes % 3.8 %; Mean Corpuscular Hemoglobin 30.2 pg (28.0-34.0); Mean Corpuscular Volume 94.4 fl (81-99); Mean Platelet Volume 10.6 fL (7.4-10.4); Monocytes # 0.5 10^3/uL (0.2-0.9); Monocytes % 4.1 %; Neutrophils # 10.18 10^3/uL (1.8-7.7); Neutrophils % 89.9 %; Nucleated Red Blood Cells % 0 %; Platelet Count 175 10^3/cmm (130-400); Red Blood Count 3.01 10^6/uL (4.1-5.3); Red Cell Distribution Width 18.1 % (12.1-15.1); White Blood Count 11.3 10^3/uL (4.0-10.0)
[2022-02-28] MEDS: sodium chlor 0.45% +KCl 20 mEq 20 MEQ/1,000 ML BAG 75 MEQ IV (06:23)
[2022-02-28 06:30] LABS: Alanine Aminotransferase < 5 U/L (0-33); Alkaline Phosphatase 203 U/L (35-105); Aspartate Amino Transferase 10 U/L (0-32); Blood Urea Nitrogen 23 mg/dL (8-23); Calcium 7.4 mg/dL (8.5-10.5); Carbon Dioxide 13 mmol/L (22-29); Chloride 113 mmol/L (98-107); Creatinine Clr Calc Pharmacy 19.4235; Globulin 2.8 g/dL (1.3-4.6); Glomerular Filtration Rate 32.2 mL/min (90-130); Glucose 135 mg/dL (65-115); Osmolality Calculated 294 mOsm/kg (285-295); Sodium 139 mmol/L (136-145); Total Bilirubin 0.5 mg/dL (0.15-1.2); Total Protein 4.8 g/dL (6.6-8.7)
[2022-02-28 06:50] LABS: Glucose Point of Care 122 mg/dL (70-110)
[2022-02-28 08:54] LABS: Blood Urea Nitrogen 22 mg/dL (8-23); Calcium 7.2 mg/dL (8.5-10.5); Carbon Dioxide 13 mmol/L (22-29); Chloride 109 mmol/L (98-107); Creatinine Clr Calc Pharmacy 19.4235; Glomerular Filtration Rate 32.2 mL/min (90-130); Glucose 120 mg/dL (65-115); Osmolality Calculated 283 mOsm/kg (285-295); Sodium 134 mmol/L (136-145)
[2022-02-28 08:56] LABS: Anion Gap 15.2 (5-19); Potassium 3.2 mmol/L (3.5-5.1)
[2022-02-28] MEDS: phosphorus 250 mg Tablet PO (09:54)
[2022-02-28] MEDS: heparin 5,000 unit/mL INJ 1 mL 5000 UNIT SUBCUT (09:55)
[2022-02-28] MEDS: sodium bicarbonate 650 mg Tablet PO ×3 (09:55→21:07)
[2022-02-28] MEDS: pantoprazole DR 40 mg Tablet PO (09:55)
[2022-02-28] MEDS: oxyCODONE 5 mg IR Tab/Cap PO ×2 (09:55→21:16)
[2022-02-28 14:40] LABS: Blood Urea Nitrogen 22 mg/dL (8-23); Calcium 7.6 mg/dL (8.5-10.5); Carbon Dioxide 12 mmol/L (22-29); Chloride 105 mmol/L (98-107); Glomerular Filtration Rate 34.6 mL/min (90-130); Glucose 180 mg/dL (65-115); Osmolality Calculated 282 mOsm/kg (285-295); Sodium 132 mmol/L (136-145)
[2022-02-28 14:42] LABS: Anion Gap 18.6 (5-19); Potassium 3.6 mmol/L (3.5-5.1)
--- NOTE | 2022-02-28 16:19 | PM.PN ---
Subjective Subjective: No acute events overnight. Transfer to [facility] floor last night. Patient is comfortably in bed on examination. Afebrile. Urine output of more than 3 L in last 24 hours. Vitals/I&O/Wt Last Vital Signs Temp 98.4 F 02/28/22 11: Pulse 91 02/28/22 14:00 Resp 18 02/28/22 11:22 BP 138/66 02/28/22 11:22 Pulse Ox 93 02/28/22 11:22 O2 Del Method 02/28/22 11:22 02/28/22 02/28/22 02/28/22 06:59 14:59 22:59 Intake Total 3152.5 / 4422.5 960 / 960 Output Total 1350 / 4850 850 / 850 Balance 1802.5 / -427.5 110 / 110 Weight last 48 hrs Weight 36.061 kg Physical Exam Narrative: General: Significantly cachectic female lying in bed, reports feeling cold wants to be covered in 3 blankets. HEENT: PERRLA, pupils bilaterally equal and reactive, pallors not present Chest: Normal vesicular breath sounds, no added sounds, equal good air entry bilaterally CVS: S1-S2 regular, no murmurs, no tachycardia, no gallops, no rubs Abdomen: Malnourished, 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 Colostomy with fecal contents, no gross diarrhea. Maceration noted over anterior abdominal wall likely from leakage from stoma's. Neuro: No focal deficits, no facial deformity, AO x3, power 5/5 in all limbs Data : 02/28/22 05:38 02/28/22 13:50 Micro: Microbiology 02/26/22 19:58 Urine Culture - Final Urine,Clean Catch 02/26/22 16:38 Blood Culture - Preliminary Blood 02/26/22 16:46 Blood Culture - Preliminary Blood A&P Assessment and plan (1) Metabolic acidosis: Most likely secondary to dehydration. Continue with normal saline at 75 cc/h along with sodium bicarb infusion at 50 cc/h. Monitor BMP every 4 hours. Check into output charting. Restart home dose of sodium bicarbonate. (2) Dehydration: IV fluid as above. (3) Leukocytosis: Could be secondary dehydration but cannot rule out UTI/pyelonephritis given complicated urinary anatomy, bilateral hydronephrosis and calculi. Continue with Zosyn for now. Culture history appreciated. Monitor blood culture, urine culture. (4) Hyponatremia: Resolved. (5) Acute kidney injury: Baseline creatinine seems to be 1.4-1.6. Down to baseline. Secondary dehydration. Medical reconciliation done for nephrotoxic drugs. (6) Physical deconditioning: (7) Goals of care, counseling/discussion: (8) Protein-energy malnutrition: Plan Analgesia: Oxycodone 5 mg every 8 hour as needed. Glycemic control: Not needed. Hypoglycemia protocols Nutrition: Regular diet with protein shakes in each meal CODE STATUS: DNR/DNI PUD prophylaxis: Protonix DVT prophylaxis: Heparin 5000 every 12 hourly Discharge planning: Given recurrent admissions secondary to dehydration, metabolic acidosis with electrolyte abnormality along with chronic sickness patient would do better for likely short-term SNF placement. Discussed with the patient. She would like to think further. We discussed with family again. Case management Alerted. Plan for the day: Continue checking BMP every 8 hours. Continue with half NS at 75 cc/h, sodium bicarb infusion at 50 cc/h. Strict input output charting. Continue with regular diet with protein shakes. Follow-up with blood culture, urine culture for now. Continue with Zosyn. Palliative consult. This documentation was created by [employer] preform plate maker software. Every effort was made to ensure accuracy of preform plate maker. Any obvious errors or omissions should be clarified with the author of the document. Attestations Medical Necessity Statement*: For management of acute kidney injury, metabolic acidosis secondary to dehydration in a patient with a history of vulvar cancer post colostomy and urostomy, severe protein energy malnutrition Time Spent in Patient Care: Greater than 35 minutes Coding Level of Care Code Acute Mica Inspector for Chg Fwd Diagnoses Metabolic acidosis E87.20 Dehydration E86.0 Leukocytosis D72.829 Hyponatremia E87.1 Acute kidney injury N17.9 Physical deconditioning R53.81 Goals of care, counseling/discussion Z71.89 Protein-energy malnutrition E46
[2022-02-28] MEDS: sodium chlor 0.45% +KCl 20 mEq 20 MEQ/1,000 ML BAG 50 MEQ IV (19:37)
[2022-02-28 21:13] LABS: Glucose Point of Care 235 mg/dL (70-110)
[2022-02-28] MEDS: sodium bicarbonate 150 MEQ in dextrose 5% 1,000 ML 50 MEQ IV (22:19)
[2022-02-28 22:43] LABS: Blood Urea Nitrogen 21 mg/dL (8-23); Carbon Dioxide 16 mmol/L (22-29); Chloride 106 mmol/L (98-107); Glomerular Filtration Rate 34.6 mL/min (90-130); Glucose 182 mg/dL (65-115); Osmolality Calculated 286 mOsm/kg (285-295); Sodium 134 mmol/L (136-145)
[2022-03-01] VITALS (11 sets, daily range): BP systolic 135–149; BP diastolic 72–87; PULSE 67–92; RESP 15–20; TEMP 36.2–37.3; O2SAT 94–99
[2022-03-01] MEDS: piperacillin-tazobactam 3.375 GM in sodium chloride 0.9% (plus) 50 ML IV ×2 (00:26→15:25)
[2022-03-01] MEDS: heparin 5,000 unit/mL INJ 1 mL 5000 UNIT SUBCUT ×2 (00:27→15:57)
[2022-03-01 05:52] LABS: Basophils % 0.3 %; Eosinophils # 0.1 10^3/uL (0.0-0.8); Eosinophils % 1.3 %; Hematocrit 26.1 % (37.0-47.0); Hemoglobin 8.6 g/dL (11.5-15.3); Lymphocytes # 0.8 10^3/uL (0.8-4.8); Lymphocytes % 7.2 %; Mean Corpuscular Hemoglobin 30.1 pg (28.0-34.0); Mean Corpuscular Volume 91.3 fl (81-99); Mean Platelet Volume 10.9 fL (7.4-10.4); Monocytes # 0.6 10^3/uL (0.2-0.9); Monocytes % 5.3 %; Neutrophils # 9.26 10^3/uL (1.8-7.7); Neutrophils % 84.9 %; Nucleated Red Blood Cells % 0 %; Platelet Count 170 10^3/cmm (130-400); Red Blood Count 2.86 10^6/uL (4.1-5.3); Red Cell Distribution Width 17.8 % (12.1-15.1); White Blood Count 10.9 10^3/uL (4.0-10.0)
[2022-03-01 06:08] LABS: Anion Gap 11.9 (5-19); Blood Urea Nitrogen 19 mg/dL (8-23); Calcium 7.1 mg/dL (8.5-10.5); Carbon Dioxide 19 mmol/L (22-29); Chloride 110 mmol/L (98-107); Creatinine Clr Calc Pharmacy 23.9058; Glomerular Filtration Rate 40.9 mL/min (90-130); Glucose 108 mg/dL (65-115); Osmolality Calculated 289 mOsm/kg (285-295); Sodium 138 mmol/L (136-145)
[2022-03-01 06:17] LABS: Potassium 2.9 mmol/L (3.5-5.1)
[2022-03-01] MEDS: potassium chloride oral liq 20 mEq/15 mL UDC 60 MEQ PO (06:26)
[2022-03-01 06:55] LABS: Glucose Point of Care 124 mg/dL (70-110)
[2022-03-01] MEDS: phosphorus 250 mg Tablet PO (10:22)
[2022-03-01] MEDS: sodium bicarbonate 650 mg Tablet PO ×3 (10:23→21:15)
[2022-03-01] MEDS: pantoprazole DR 40 mg Tablet PO (10:23)
[2022-03-01] MEDS: oxyCODONE 5 mg IR Tab/Cap PO ×2 (10:33→19:08)
[2022-03-01 11:33] LABS: Glucose Point of Care 229 mg/dL (70-110)
[2022-03-01 14:51] LABS: Blood Urea Nitrogen 18 mg/dL (8-23); Calcium 7.3 mg/dL (8.5-10.5); Carbon Dioxide 15 mmol/L (22-29); Chloride 108 mmol/L (98-107); Creatinine Clr Calc Pharmacy 23.9058; Glomerular Filtration Rate 40.9 mL/min (90-130); Glucose 186 mg/dL (65-115); Osmolality Calculated 287 mOsm/kg (285-295); Sodium 135 mmol/L (136-145)
[2022-03-01] MEDS: sodium chlor 0.45% +KCl 20 mEq 20 MEQ/1,000 ML BAG 50 MEQ IV (15:27)
--- NOTE | 2022-03-01 15:27 | P.PN_ITS ---
Subjective Subjective: No acute events overnight. Patient is comfortably lying in bed. Denies any nausea, vomiting, headache. States feeling better. Has remained hemodynamically stable and afebrile. Discussed in detail with the patient regarding blood cultures being positive this time again. We also discussed most likely the source of infection is bilateral pyelonephritis in setting of obstructive nephropathy and renal stones. We discussed primary treatment for this would be source control with the stent placement which cannot be done retrograde at our hospital and she will need to be transferred to a higher center for possible bilateral nephrectomies and stent to be placed. We discussed that this is currently the treatment for the recurrent UTIs but that would not take care of the basic problem which is unfortunately secondary to the extensive vulvar cancer for which she required colostomy and urostomy. We discussed that patient does have severe protein energy malnutrition and without this she will require multiple admissions going forward. Patient stated she understands and given the nature of the disease, or weakness she does not want to pursue any further treatment want to remain comfortable and go hospice. We discussed hospice would mean that going forward she will not be on any permanent treatment and the goals will be to keep her comfortable and if and when she gets sick at home they will keep her comfortable at home and let nature takes its own Calci-Mix creatinine however dying. Patient verbalized understanding and want to continue going ahead with hospice. Vitals/I&O/Wt Last Vital Signs Temp 99.2 F 03/01/22 08:00 Pulse 85 03/01/22 08:00 Resp 15 03/01/22 10:33 BP 147/87 03/01/22 08:00 Pulse Ox 94 03/01/22 10:33 O2 Del Method 03/01/22 08:00 03/01/22 03/01/22 03/01/22 06:59 14:59 22:59 Intake Total 50 / 3189.166 720 / 720 Output Total 1375 / 3600 800 / 800 Balance -1325 / -410.834 -80 / -80 Physical Exam Narrative: General: Significantly cachectic female lying in bed, reports feeling cold wants to be covered in 3 blankets. HEENT: PERRLA, pupils bilaterally equal and reactive, pallors not present Chest: Normal vesicular breath sounds, no added sounds, equal good air entry bilaterally CVS: S1-S2 regular, no murmurs, no tachycardia, no gallops, no rubs Abdomen: Malnourished, 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 Colostomy with fecal contents, no gross diarrhea. Maceration noted over anterior abdominal wall likely from leakage from stoma's. Neuro: No focal deficits, no facial deformity, AO x3, power 5/5 in all limbs Data 03/01/22 05:36 03/01/22 14:13 Micro: Microbiology 02/26/22 16:46 Blood Culture - Preliminary Blood Pseudomonas aeruginosa 03/01/22 05:36 Blood Culture - Preliminary Blood SPECIMEN COLLECTED 03/01/22 05:36 Blood Culture - Preliminary Blood SPECIMEN COLLECTED 02/26/22 16:38 Blood Culture - Preliminary Blood Presumptive p. aeruginosa 02/26/22 19:58 Urine Culture - Final Urine,Clean Catch A&P Assessment and plan (1) Bacteremia due to Pseudomonas: Blood cultures from admission positive for Pseudomonas. Sensitivities appreciated. Secondary to obstructive pyelonephritis with bilateral hydronephrosis. Care discussed in detail with Dr. Simpson. Patient needs bilateral ureteral stent placement which cannot be done retrograde given her complex anatomy. Patient will most likely need bilateral nephrostomy tubes. For definitive care patient will need to be transferred to a higher center. Continue with [facility]. Discussed all the above in detail with patient. She do not want to pursue definitive treatment and would rather go hospice. (2) Pyelonephritis: (3) Metabolic acidosis: Most likely secondary to dehydration. Saline. Stop bicarb infusion. Monitor BMP daily for now. Strict input/output charting. Restart home dose of sodium bicarbonate. (4) Dehydration: IV fluid as above. (5) Hyponatremia: Resolved. (6) Acute kidney injury: Baseline creatinine seems to be 1.4-1.6. Down to baseline. Secondary dehydration. Medical reconciliation done for nephrotoxic drugs. (7) Physical deconditioning: (8) Goals of care, counseling/discussion: (9) Protein-energy malnutrition: Plan Analgesia: Oxycodone 5 mg every 8 hour as needed. Glycemic control: Not needed. Hypoglycemia protocols Nutrition: Regular diet with protein shakes in each meal CODE STATUS: DNR/DNI PUD prophylaxis: Protonix DVT prophylaxis: Heparin 5000 every 12 hourly Discharge planning: Given recurrent admissions secondary to dehydration, metabolic acidosis with electrolyte abnormality along with chronic sickness patient would do better for likely short-term SNF placement. Discussed with the patient. She would like to think further. We discussed with family again. Case management Alerted. Plan for the day: Continue with IV fluids. Stop bicarb infusion. Continue with Zosyn. As per goals of care discussion we will go ahead with hospice care. Appreciate alcohol abuse recommendation. Palliative consult. This documentation was created by [employer] desktop publishing operator software. Every effort was made to ensure accuracy of desktop publishing operator. Any obvious errors or omissions should be clarified with the author of the document. Attestations Medical Necessity Statement*: Requires further hospitalization for hospice care arrangement. Time Spent in Patient Care: Greater than 35 minutes Coding Level of Care Code Acute Physical Therapy Aide for g Fwd Diagnoses Bacteremia due to Pseudomonas R78.81; B96.5 Pyelonephritis N12 Metabolic acidosis E87.20 Dehydration E86.0 Hyponatremia E87.1 Acute kidney injury N17.9 Physical deconditioning R53.81 Goals of care, counseling/discussion Z71.89 Protein-energy malnutrition E46
--- NOTE | 2022-03-01 20:36 | PC.NURSE ---
UPON SHIFT CHANGE, PATIENT WAS GIVEN OXYCODONE 5MG FOR PAIN. PATIENT ASKED DOSAGE OF OXYCODONE AND WAS INFORMED IT WAS 5MG. PATIENT THEN STARED AT NURSE AND STATED YES I KNOW IT IS 5MG. THE DOCTOR WHO ORDERED THAT NEEDS SOMETHING SHOVED UP HIS ASS FOR HOW LITTLE DOSAGE THAT IS. PATIENT TOOK OXYCODONE, AND THREW EMPTY MED CUP ON BED.
--- NOTE | 2022-03-01 22:10 | PC.NURSE ---
PATIENT REQUESTING PAIN MEDICATION. NURSE INFORMED PATIENT THAT IT IS TOO EARLY FOR PAIN MED REQUESTED, AND OFFERED TYLENOL. PATIENT REFUSED TYLENOL, STATING THAT IT WOULD NOT WORK, BUT STATES THAT SHE WILL TAKE TYLENOL WITH NEXT OXYCODONE.
--- NOTE | 2022-03-01 23:37 | PC.NURSE ---
PATIENT INQUIRING ON NEXT PAIN MED, AND PATIENT INFORMED NEXT PAIN MED ISN'T FOR SEVERAL HOURS. PATIENT STATED THAT SHE WAS SICK OF IT ALL, THAT 5 MG DOESN'T HELP ANYBODY, AND THAT SHE HOPES THE DR WHO PRESCRIBED 5MG HURTS IN HIS TAILBONE THREE TIMES MUCH I DO. PATIENT RESTING IN BED WATCHING TV, AND HAD NO FURTHER CONCERNS AT THIS TIME.
[2022-03-02] VITALS (11 sets, daily range): BP systolic 125–145; BP diastolic 72–90; PULSE 74–79; RESP 14–20; TEMP 36.3–37.3; O2SAT 94–100
[2022-03-02 01:30] LABS: Glucose Point of Care 140 mg/dL (70-110)
[2022-03-02] MEDS: piperacillin-tazobactam 3.375 GM in sodium chloride 0.9% (plus) 50 ML IV ×2 (02:18→12:57)
[2022-03-02] MEDS: oxyCODONE 5 mg IR Tab/Cap PO (03:36)
[2022-03-02] MEDS: acetaminophen 325 mg Tablet 650 MG PO (03:37)
[2022-03-02] MEDS: heparin 5,000 unit/mL INJ 1 mL 5000 UNIT SUBCUT (05:40)
[2022-03-02 10:51] LABS: Glucose Point of Care 145 mg/dL (70-110)
--- NOTE | 2022-03-02 11:07 | PC.CHAP ---
Pastoral Care Encounter/Spiritual Assessment Type of Contact [] Declined unit aid visit [] Patient/Family/Request visit [] Outpatient visit [] Follow-up visit [] Physician referral [] Code/Alert [x] Routine visit [] Staff referral [] Actively dying [] Patient sleeping [x] Family support [] [] Out of room [] Palliative care [] [x] Receiving care in room [] Pre-surgical visit [] Trauma [] Long length of stay [] ICU visit [] Other: Relational/Emotional Strength [x] Patient feels connected with others/family/visitors/staff [] Distress [] Loneliness/isolation [] Abandonment Spirituality of Patient [x] Person of Jerrica [] Attends Pentecostalism of their [place] [x] Believes in Prayer [] Reads Bible or Buddhist materials [] There are Spiritual issues to be addressed Roll Up Guider Operator Interventions [x] Prayer [] Active listening [] Non-anxious presence [] Spiritual/emotional support [] Crisis/trauma care [] Spiritual counseling [] Bereavement support [] Provided bereavement packet [x] Provided Bible/devotional materials [] Provided toy/stuffed animal, coloring book to patient or family member [] Provided Communion [] Anointing/[place] [] Salvation [x] Completed spiritual assessment [] Other: Impact on Illness or Injury [] Angry [] Fearful [] Anxious [] Often cries [] Exhaustion [] Unable to work [] Unable to attend buddhism [] Unable to walk/stand [] Unable to read [] Unable to drive [] Unable to eat/drink [] Unable to sleep [] Unable to be with family [] Patient intubated [] Other: Summary Time spent with patient 30 min
[2022-03-02] MEDS: phosphorus 250 mg Tablet PO (11:36)
[2022-03-02] MEDS: pantoprazole DR 40 mg Tablet PO (11:36)
[2022-03-02] MEDS: sodium bicarbonate 650 mg Tablet PO ×3 (11:37→21:37)
[2022-03-02] MEDS: oxyCODONE 5 mg IR Tab/Cap 10 MG PO ×2 (12:51→18:52)
--- NOTE | 2022-03-02 14:53 | PM.PN ---
Subjective Subjective: No acute events overnight. Today morning patient seen sitting in chair. She is concerned about the pain medication. States pain is not well controlled. Care also discussed with daughter at bedside. They are both agreeable for hospice. Looking for hospice services in [place]. We discussed about the pain medications and adjusted accordingly. As per the nurse patient's pain pills came out whole from ostomy bag without being absorbed. We will plan to give pain medications crushed in applesauce for better reabsorption. Patient is agreeable and states she even does that at home sometimes. Vitals/I&O/Wt Last Vital Signs Temp 97.4 F L 03/02/22 11:38 Pulse 79 03/02/22 11:38 Resp 15 03/02/22 12:51 BP 143/90 03/02/22 11:38 Pulse Ox 100 03/02/22 11:38 O2 Del Method 03/02/22 11:38 03/01/22 03/02/22 03/02/22 22:59 06:59 14:59 Intake Total 1401.667 / 2121.667 50 / 2171.667 600 / 600 Output Total 2100 / 2900 650 / 3550 720 / 720 Balance -698.333 / -778.333 -600 / -1378.333 -120 / -120 Physical Exam Narrative: General: Significantly cachectic female lying in bed, in distress because of pain, AOx3 HEENT: PERRLA, pupils bilaterally equal and reactive, pallors not present Chest: Normal vesicular breath sounds, no added sounds, equal good air entry bilaterally CVS: S1-S2 regular, no murmurs, no tachycardia, no gallops, no rubs Abdomen: Malnourished, 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 Colostomy with fecal contents, no gross diarrhea. Maceration noted over anterior abdominal wall likely from leakage from stoma's. Neuro: No focal deficits, no facial deformity, AO x3, power 5/5 in all limbs Data 03/01/22 05:36 03/01/22 14:13 Micro: Microbiology 03/01/22 05:36 Blood Culture - Preliminary Blood NEGATIVE TO DATE 03/01/22 05:36 Blood Culture - Preliminary Blood NEGATIVE TO DATE 02/26/22 16:46 Blood Culture - Preliminary Blood Pseudomonas aeruginosa A&P Assessment and plan (1) Bacteremia due to Pseudomonas: Blood cultures from admission positive for Pseudomonas. Sensitivities appreciated. Secondary to obstructive pyelonephritis with bilateral hydronephrosis. Care discussed in detail with Dr. Simpson. Patient needs bilateral ureteral stent placement which cannot be done retrograde given her complex anatomy. Patient will most likely need bilateral nephrostomy tubes. For definitive care patient will need to be transferred to a higher center. Continue with Zosyn. Discussed all the above in detail with patient. She do not want to pursue definitive treatment and would rather go hospice. (2) Pyelonephritis: (3) Metabolic acidosis: Most likely secondary to dehydration. Saline. Stop bicarb infusion. Monitor BMP daily for now. Strict input/output charting. Restart home dose of sodium bicarbonate. (4) Dehydration: IV fluid as above. (5) Hyponatremia: Resolved. (6) Acute kidney injury: Baseline creatinine seems to be 1.4-1.6. Down to baseline. Secondary dehydration. Medical reconciliation done for nephrotoxic drugs. (7) Physical deconditioning: (8) Goals of care, counseling/discussion: (9) Protein-energy malnutrition: Plan Analgesia: Oxycodone 5 mg every 8 hour as needed. Glycemic control: Not needed. Hypoglycemia protocols Nutrition: Regular diet with protein shakes in each meal CODE STATUS: DNR/DNI PUD prophylaxis: Protonix DVT prophylaxis: SCDs, hold off on heparin as patient is hospice care. Discharge planning: Given recurrent admissions secondary to dehydration, metabolic acidosis with electrolyte abnormality along with chronic sickness patient would do better for likely short-term SNF placement. Discussed with the patient. She would like to think further. We discussed with family again. Case management Alerted. Plan for the day: Continue with hospice care. Awaiting placement. Continue with IV fluids and Zosyn. Change pain medications to oxycodone 10 mg every 6 hour as needed, tramadol 50 mg every 6 hour as needed. Will try to give medications crushed for better absorption. Patient is agreeable. Will increase if needed as per pain scale. Care discussed in detail with patient and daughter at bedside. She is also agreeable. This documentation was created by [employer] second rigger software. Every effort was made to ensure accuracy of second rigger. Any obvious errors or omissions should be clarified with the author of the document. Attestations Medical Necessity Statement*: Requires further hospitalization while hospice care is set up for better pain control. Time Spent in Patient Care: Greater than 35 minutes Coding Level of Care Code Acute Auto Clutch Specialist for Chg Fwd Diagnoses Bacteremia due to Pseudomonas R78.81; B96.5 Pyelonephritis N12 Metabolic acidosis E87.20 Dehydration E86.0 Hyponatremia E87.1 Acute kidney injury N17.9 Physical deconditioning R53.81 Goals of care, counseling/discussion Z71.89 Protein-energy malnutrition E46
[2022-03-02] MEDS: TRAMadol 50 mg Tablet PO (16:12)
[2022-03-02] MEDS: sodium chlor 0.45% +KCl 20 mEq 20 MEQ/1,000 ML BAG 50 MEQ IV (16:14)
[2022-03-02 17:03] LABS: Glucose Point of Care 128 mg/dL (70-110)
--- NOTE | 2022-03-02 20:23 | PC.NURSE ---
BEDSIDE REPORT TAKEN FROM ANTOINE ZUÑIGA. PATIENT A&OX4, VSS. PATIENT'S OPTIFOAM ON COCCYX CHANGED. PATIENT STATES THAT SHE HAS CHANGED HER OSTOMY DRESSINGS TODAY, REPORTS SMALL AMOUNT OF LEAKING EARLIER THIS SHIFT BUT HAS SINCE REINFORCED IT WITH TAPE. FAMILY MEMBER AT BEDSIDE. DISCUSSION OF PATIENT GOING ON HOSPICE TOOK PLACE. BED LOCKED AND IN LOW POSITION, TWO BED RAILS UP, CALL LIGHT WITHIN REACH. PATIENT REPORTS NO FURTHER NEEDS AT THIS TIME.
[2022-03-02 22:00] LABS: Glucose Point of Care 285 mg/dL (70-110)
--- NOTE | 2022-03-02 23:05 | PC.NURSE ---
UROSOTMY AND ILEOSTOMY CHANGED AT BEDSIDE WITH NURSE. SURROUNDING SKIN RED AND IRRITATED, CLEANSED AND DRIED. BED LINEN CHANGED. PATIENT RESTING IN BED, BOTH SIDE RAILS UP, BED LOCKED IN THE LOWEST POSITION, CALL LIGHT WITHIN REACH. NO FURTHER NEEDS AT THIS TIME.
[2022-03-03] VITALS (11 sets, daily range): BP systolic 121–147; BP diastolic 66–76; PULSE 69–90; RESP 14–18; TEMP 36.8–37.5; O2SAT 98–100
[2022-03-03] MEDS: piperacillin-tazobactam 3.375 GM in sodium chloride 0.9% (plus) 50 ML IV ×3 (01:39→20:38)
[2022-03-03] MEDS: oxyCODONE 5 mg IR Tab/Cap 10 MG PO ×4 (01:50→23:37)
--- NOTE | 2022-03-03 03:49 | PC.NURSE ---
PATIENT REPORTS IV IN RIGHT AC BECAME DISLODGED AND WAS LEAKING. UNCLEAR WHETHER PATIENT PULLED IV OUT OR IV CAME OUT, BUT IV IN RIGHT AC SPACE IS NO LONGER PRESENT.
[2022-03-03] MEDS: sodium bicarbonate 650 mg Tablet PO ×3 (09:38→20:38)
[2022-03-03] MEDS: pantoprazole DR 40 mg Tablet PO (09:38)
[2022-03-03] MEDS: phosphorus 250 mg Tablet PO (09:38)
--- NOTE | 2022-03-03 10:28 | PC.SOCIAL ---
IMM Updated Updated pt on IMM. No questions voiced. Provided pt a copy. Initialed, dated, & timed copy in chart.
--- NOTE | 2022-03-03 12:16 | PM.PN ---
Subjective Subjective: Status quo. No new complaints. Pain well controlled today. Vitals/I&O/Wt Last Vital Signs Temp 98.5 F 03/03/22 07:59 Pulse 90 03/03/22 07:59 Resp 14 03/03/22 09:37 BP 131/76 03/03/22 07:59 Pulse Ox 99 03/03/22 07:59 O2 Del Method 03/03/22 07:59 03/02/22 03/03/22 03/03/22 22:59 06:59 14:59 Intake Total 770 / 2370 140 / 140 Output Total 1150 / 1870 850 / 2720 Balance -380 / 500 -850 / -350 140 / 140 Weight last 48 hrs Weight 38.646 kg Physical Exam Narrative: General: Significantly cachectic female lying in bed, in distress because of pain, AOx3 HEENT: PERRLA, pupils bilaterally equal and reactive, pallors not present Chest: Normal vesicular breath sounds, no added sounds, equal good air entry bilaterally CVS: S1-S2 regular, no murmurs, no tachycardia, no gallops, no rubs Abdomen: Malnourished, 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 Colostomy with fecal contents, no gross diarrhea. Maceration noted over anterior abdominal wall likely from leakage from stoma's. Neuro: No focal deficits, no facial deformity, AO x3, power 5/5 in all limbs Data 03/01/22 05:36 03/01/22 14:13 A&P Assessment and plan (1) Bacteremia due to Pseudomonas: Blood cultures from admission positive for Pseudomonas. Sensitivities appreciated. Secondary to obstructive pyelonephritis with bilateral hydronephrosis. Care discussed in detail with Dr. Simpson. Patient needs bilateral ureteral stent placement which cannot be done retrograde given her complex anatomy. Patient will most likely need bilateral nephrostomy tubes. For definitive care patient will need to be transferred to a higher center. Continue with [facility]. Discussed all the above in detail with patient. She do not want to pursue definitive treatment and would rather go hospice. (2) Pyelonephritis: (3) Metabolic acidosis: Most likely secondary to dehydration. Saline. Stop bicarb infusion. Monitor BMP daily for now. Strict input/output charting. Restart home dose of sodium bicarbonate. (4) Dehydration: IV fluid as above. (5) Hyponatremia: Resolved. (6) Acute kidney injury: Baseline creatinine seems to be 1.4-1.6. Down to baseline. Secondary dehydration. Medical reconciliation done for nephrotoxic drugs. (7) Physical deconditioning: (8) Goals of care, counseling/discussion: (9) Protein-energy malnutrition: Plan Analgesia: Oxycodone 5 mg every 8 hour as needed. Glycemic control: Not needed. Hypoglycemia protocols Nutrition: Regular diet with protein shakes in each meal CODE STATUS: DNR/DNI PUD prophylaxis: Protonix DVT prophylaxis: SCDs, hold off on heparin as patient is hospice care. Discharge planning: SNF with hospice. Preferably at [place] as per family. Plan for the day: Continue with current pain medication. Awaiting placement with hospice. This documentation was created by [employer] consumer banker software. Every effort was made to ensure accuracy of consumer banker. Any obvious errors or omissions should be clarified with the author of the document. Attestations Medical Necessity Statement*: Requires further hospitalization while hospice at SNF is being set up. Time Spent in Patient Care: 16 - 35 minutes Coding Level of Care Code Acute Electronic Scanner Operator for Chg Fwd Diagnoses Bacteremia due to Pseudomonas R78.81; B96.5 Pyelonephritis N12 Metabolic acidosis E87.20 Dehydration E86.0 Hyponatremia E87.1 Acute kidney injury N17.9 Physical deconditioning R53.81 Goals of care, counseling/discussion Z71.89 Protein-energy malnutrition E46
[2022-03-03] MEDS: TRAMadol 50 mg Tablet PO (12:48)
[2022-03-03] MEDS: sodium chlor 0.45% +KCl 20 mEq 20 MEQ/1,000 ML BAG 50 MEQ IV (15:01)
--- NOTE | 2022-03-03 19:56 | PC.NURSE ---
REPORT TAKEN FROM YOGESH SCHULTZ. PATIENT A&O, VSS. PATIENT RESTING IN BED WATCHING TV, BED LOCKED IN LOWEST POSITION, BOTH SIDE RAILS UP AND CALL LIGHT WITHIN REACH. PATIENT EDUCATED TO PRESS CALL LIGHT IF PATIENT NEEDS ANYTHING. PATIENT STATED NO FURTHER NEEDS AT THIS TIME.
[2022-03-03 21:04] LABS: Glucose Point of Care 125 mg/dL (70-110)
[2022-03-04] VITALS: BP 155/61; PULSE 69; RESP 18; TEMP 37.1; O2SAT 98
[2022-03-04 04:00] VITALS: BP 120/80; PULSE 81; RESP 18; TEMP 37; O2SAT 91
[2022-03-04] MEDS: piperacillin-tazobactam 3.375 GM in sodium chloride 0.9% (plus) 50 ML IV ×3 (05:17→21:37)
[2022-03-04 07:53] VITALS: BP 138/69; PULSE 81; RESP 15; TEMP 36.8; O2SAT 98
[2022-03-04] MEDS: phosphorus 250 mg Tablet PO (08:04)
[2022-03-04] MEDS: pantoprazole DR 40 mg Tablet PO (08:04)
[2022-03-04] MEDS: oxyCODONE 5 mg IR Tab/Cap 10 MG PO ×3 (08:04→18:50)
[2022-03-04] MEDS: sodium bicarbonate 650 mg Tablet PO ×3 (08:05→21:38)
[2022-03-04 11:06] LABS: Glucose Point of Care 147 mg/dL (70-110)
[2022-03-04] MEDS: TRAMadol 50 mg Tablet PO ×3 (11:31→22:51)
[2022-03-04 11:52] VITALS: BP 121/72; PULSE 86; RESP 16; TEMP 36.9; O2SAT 98
--- NOTE | 2022-03-04 12:18 | PM.PN ---
Subjective Subjective: Status quo. Family at bedside. States pain is relieved but would appreciate if could be increased further. Awaiting placement. Vitals/I&O/Wt Last Vital Signs Temp 98.5 F 03/04/22 11:52 Pulse 86 03/04/22 11:52 Resp 16 03/04/22 11:52 BP 121/72 03/04/22 11:52 Pulse Ox 98 03/04/22 11:52 O2 Del Method 03/04/22 11:52 03/03/22 03/04/22 03/04/22 22:59 06:59 14:59 Intake Total 1290 / 1620 530 / 2150 480 / 480 Output Total 1200 / 1200 1200 / 1200 Balance 90 / 420 530 / 950 -720 / -720 Weight last 48 hrs Weight 38.646 kg Physical Exam Narrative: General: Significantly cachectic female lying in bed, in distress because of pain, AOx3 HEENT: PERRLA, pupils bilaterally equal and reactive, pallors not present Chest: Normal vesicular breath sounds, no added sounds, equal good air entry bilaterally CVS: S1-S2 regular, no murmurs, no tachycardia, no gallops, no rubs Abdomen: Malnourished, 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 Colostomy with fecal contents, no gross diarrhea. Maceration noted over anterior abdominal wall likely from leakage from stoma's. Neuro: No focal deficits, no facial deformity, AO x3, power 5/5 in all limbs Data 03/01/22 05:36 03/01/22 14:13 Micro: Microbiology 02/26/22 16:38 Blood Culture - Final Blood Pseudomonas aeruginosa 02/26/22 16:46 Blood Culture - Final Blood Pseudomonas aeruginosa A&P Assessment and plan (1) Bacteremia due to Pseudomonas: Blood cultures from admission positive for Pseudomonas. Sensitivities appreciated. Secondary to obstructive pyelonephritis with bilateral hydronephrosis. Care discussed in detail with Dr. Simpson. Patient needs bilateral ureteral stent placement which cannot be done retrograde given her complex anatomy. Patient will most likely need bilateral nephrostomy tubes. For definitive care patient will need to be transferred to a higher center. Continue with [place]. Discussed all the above in detail with patient. She do not want to pursue definitive treatment and would rather go hospice. (2) Pyelonephritis: (3) Metabolic acidosis: Most likely secondary to dehydration. Saline. Stop bicarb infusion. Monitor BMP daily for now. Strict input/output charting. Restart home dose of sodium bicarbonate. (4) Dehydration: IV fluid as above. (5) Hyponatremia: Resolved. (6) Acute kidney injury: Baseline creatinine seems to be 1.4-1.6. Down to baseline. Secondary dehydration. Medical reconciliation done for nephrotoxic drugs. (7) Physical deconditioning: (8) Goals of care, counseling/discussion: (9) Protein-energy malnutrition: Plan Analgesia: Oxycodone 5 mg every 8 hour as needed. Glycemic control: Not needed. Hypoglycemia protocols Nutrition: Regular diet with protein shakes in each meal CODE STATUS: DNR/DNI PUD prophylaxis: Protonix DVT prophylaxis: SCDs, hold off on heparin as patient is hospice care. Discharge planning: SNF with hospice. Preferably at [place] as per family. Plan for the day: Continue with current pain medication. Awaiting placement with hospice. This documentation was created by [employer] dyer and washer software. Every effort was made to ensure accuracy of dyer and washer. Any obvious errors or omissions should be clarified with the author of the document. Attestations Medical Necessity Statement*: Requires further hospitalization while SNF placement with hospice is arranged. Time Spent in Patient Care: less than 15 minutes Coding Level of Care Code Acute Master [place] for Chg Fwd Diagnoses Bacteremia due to Pseudomonas R78.81; B96.5 Pyelonephritis N12 Metabolic acidosis E87.20 Dehydration E86.0 Hyponatremia E87.1 Acute kidney injury N17.9 Physical deconditioning R53.81 Goals of care, counseling/discussion Z71.89 Protein-energy malnutrition E46
[2022-03-04 16:00] VITALS: BP 120/68; PULSE 80; RESP 15; TEMP 36.7; O2SAT 98
[2022-03-04 17:10] LABS: Glucose Point of Care 103 mg/dL (70-110)
[2022-03-04] MEDS: sodium chlor 0.45% +KCl 20 mEq 20 MEQ/1,000 ML BAG 50 MEQ IV (19:00)
[2022-03-04 20:00] VITALS: BP 133/67; PULSE 86; RESP 14; TEMP 36.8; O2SAT 98
[2022-03-04 21:18] LABS: Glucose Point of Care 98 mg/dL (70-110)
[2022-03-05] VITALS (9 sets, daily range): BP systolic 112–138; BP diastolic 59–73; PULSE 78–89; RESP 16–18; TEMP 36.8–37.3; O2SAT 98–99
[2022-03-05] MEDS: oxyCODONE 5 mg IR Tab/Cap 10 MG PO ×4 (03:53→19:47)
[2022-03-05] MEDS: piperacillin-tazobactam 3.375 GM in sodium chloride 0.9% (plus) 50 ML IV ×3 (04:00→21:38)
[2022-03-05 06:20] LABS: Glucose Point of Care 73 mg/dL (70-110)
[2022-03-05] MEDS: phosphorus 250 mg Tablet PO (07:45)
[2022-03-05] MEDS: TRAMadol 50 mg Tablet PO (07:45)
[2022-03-05] MEDS: pantoprazole DR 40 mg Tablet PO (07:45)
[2022-03-05] MEDS: sodium bicarbonate 650 mg Tablet PO ×3 (07:45→21:44)
--- NOTE | 2022-03-05 11:03 | PC.SOCIAL ---
IMM Updated Updated pt on IMM. No questions voiced. Provided pt a copy. Initialed, dated, & timed copy in chart.
[2022-03-05 12:00] LABS: Glucose Point of Care 105 mg/dL (70-110)
--- NOTE | 2022-03-05 12:49 | P.PN_ITS ---
Subjective Subjective: She states that her pain is treated with pain medication but it does not last long enough. Otherwise states ostomy bag will need to emptying shortly. Vitals/I&O/Wt Last Vital Signs Temp 98.5 F 03/05/22 12:00 Pulse 86 03/05/22 12:00 Resp 18 03/05/22 12:00 BP 119/67 03/05/22 12:00 Pulse Ox 98 03/05/22 12:00 O2 Del Method 03/05/22 12:00 03/04/22 03/05/22 03/05/22 22:59 06:59 14:59 Intake Total 290 / 2060 250 / 2310 360 / 360 Output Total 2150 / 3350 900 / 4250 Balance -1860 / -1290 -650 / -1940 360 / 360 Physical Exam Const: COMMON NORMALS: patient oriented x3 and alert GENERAL APPEARANCE: cooperative and frail appearing NUTRITIONAL APPEARANCE: thin ORIENTATION/CONSCIOUSNESS: Yes awake HENMT: COMMON NORMALS: oropharynx normal Neck/C-Spine: COMMON NORMALS: no JVD Resp: COMMON NORMALS: normal respiratory effort and clear to auscultation bilaterally AUSCULTATION: clear to auscultation bilaterally Cardio: COMMON NORMALS: no JVD, regular rhythm, S1 normal heart sound present, S2 normal heart sound present and No murmurs present (Cardio) RHYTHM: regular rhythm HEART SOUNDS: S1 normal heart sound present and S2 normal heart sound present GI: COMMON NORMALS: Normal to inspection, nondistended, normoactive bowel sounds present, Soft to palpation and non-tender PALPATION: Yes Soft to palpation : OTHER: Urostomy. Colostomy. Extremity: COMMON NORMALS: no joint enlargement and no pedal edema Neuro: COMMON NORMALS: patient oriented x3 and moves all extremities SENSORIUM/ORIENTATION: Yes alert Skin: COMMON NORMALS: no rashes or lesions noted GENERAL SKIN EXAM: no rashes or lesions noted Data 03/01/22 05:36 03/01/22 14:13 Micro: Microbiology 02/26/22 16:38 Blood Culture - Final Blood Pseudomonas aeruginosa 02/26/22 16:46 Blood Culture - Final Blood Pseudomonas aeruginosa A&P Assessment and plan (1) Bacteremia due to Pseudomonas: Blood cultures from admission positive for Pseudomonas. Repeat cultures so far negative. Secondary to obstructive pyelonephritis with bilateral hydronephrosis. Per prior discussions with urology and patient would need transfer to higher level facility from nephrostomies, but does not want to pursue further aggressive treatments instead preferring to transition to emphasis on comfort with hospice care. Continue with Zosyn empirically while here. Otherwise pain is not optimally controlled, will increase frequency of oxycodone after acute 4-hour as needed and will increase further depending on response. Continue tramadol as needed. Appears to prior adverse reaction to morphine. Additionally pending arrangements for continued hospice care after discharge. (2) Pyelonephritis: (3) Metabolic acidosis: Combine secondary to dehydration, as well as ileal conduit, CKD. Off IVF. Home dose of sodium bicarbonate. (4) Dehydration: Received IV fluids. Continue oral intake as tolerating. (5) Hyponatremia: Resolved. (6) Acute kidney injury: Baseline creatinine seems to be 1.4-1.6. Down to baseline. Secondary dehydration. (7) Physical deconditioning: (8) Goals of care, counseling/discussion: (9) Protein-energy malnutrition: Plan Glycemic control: Not needed. Hypoglycemia protocols Nutrition: Regular diet with protein shakes in each meal CODE STATUS: DNR/DNI PUD prophylaxis: Protonix DVT prophylaxis: SCDs, hold off on heparin as patient is hospice care. Discharge planning: SNF with hospice. Preferably at [place] as per family. Attestations Medical Necessity Statement*: Continue admission for continued care for complicated pyelonephritis, optimization of pain control with initiation of hospice care with post discharge planning arrangements. Coding Level of Care Code Acute Radiologic Technology Teacher for g Fwd Diagnoses Bacteremia due to Pseudomonas R78.81; B96.5 Pyelonephritis N12 Metabolic acidosis E87.20 Dehydration E86.0 Hyponatremia E87.1 Acute kidney injury N17.9 Physical deconditioning R53.81 Goals of care, counseling/discussion Z71.89 Protein-energy malnutrition E46
[2022-03-05 16:37] LABS: Glucose Point of Care 87 mg/dL (70-110)
[2022-03-05 20:51] LABS: Glucose Point of Care 141 mg/dL (70-110)
[2022-03-06] VITALS (12 sets, daily range): BP systolic 110–132; BP diastolic 63–80; PULSE 77–96; RESP 16–22; TEMP 36.4–37.3; O2SAT 98–100
[2022-03-06] MEDS: oxyCODONE 5 mg IR Tab/Cap 10 MG PO ×6 (00:11→20:31)
[2022-03-06] MEDS: piperacillin-tazobactam 3.375 GM in sodium chloride 0.9% (plus) 50 ML IV ×3 (04:03→20:32)
[2022-03-06 07:07] LABS: Glucose Point of Care 85 mg/dL (70-110)
--- NOTE | 2022-03-06 08:33 | PC.NURSE ---
Patient's ostomies both urostomy and ileostomy were leaking at 0705. Bags and wafers changed and bed linens changed.
[2022-03-06] MEDS: pantoprazole DR 40 mg Tablet PO (08:48)
[2022-03-06] MEDS: sodium bicarbonate 650 mg Tablet PO ×3 (08:48→20:32)
[2022-03-06] MEDS: phosphorus 250 mg Tablet PO (08:48)
--- NOTE | 2022-03-06 11:32 | PC.CHAP ---
Pastoral Care Encounter/Spiritual Assessment Type of Contact [] Declined nursing care partner visit [] Patient/Family/Request visit [] Outpatient visit [] Follow-up visit [] Physician referral [] Code/Alert [x] Routine visit [] Staff referral [x] Actively dying [] Patient sleeping [] Family support [] [] Out of room [] Palliative care [] [] Receiving care in room [] Pre-surgical visit [] Trauma [] Long length of stay [] ICU visit [] Other: Relational/Emotional Strength [x] Patient feels connected with others/family/visitors/staff [] Distress [] Loneliness/isolation [] Abandonment Spirituality of Patient [x] Person of Jerrica [] Attends Voodoo of their [place] [x] Believes in Prayer x] Reads Bible or Faith materials [] There are Spiritual issues to be addressed Learning Disabled Teacher Interventions [x] Prayer [x] Active listening [x] Non-anxious presence [x] Spiritual/emotional support [] Crisis/trauma care [] Spiritual counseling [] Bereavement support [] Provided bereavement packet [x] Provided Bible/devotional materials [] Provided toy/stuffed animal, coloring book to patient or family member [] Provided Communion [] Anointing/[place] [] Salvation [] Completed spiritual assessment [] Other: Impact on Illness or Injury [] Angry [] Fearful [] Anxious [] Often cries [] Exhaustion [] Unable to work [] Unable to attend restoration [] Unable to walk/stand [] Unable to read [] Unable to drive [] Unable to eat/drink [] Unable to sleep [] Unable to be with family [] Patient intubated [] Other: Summary Time spent with patient 15 min
[2022-03-06 12:02] LABS: Glucose Point of Care 95 mg/dL (70-110)
--- NOTE | 2022-03-06 13:12 | P.PN_ITS ---
Subjective Subjective: Pain medication is now working a bit better at the decreased frequency. She requested since her ostomy bag emptied. Vitals/I&O/Wt Last Vital Signs Temp 97.7 F 03/06/22 12:00 Pulse 90 03/06/22 12:00 Resp 18 03/06/22 12:53 BP 113/65 03/06/22 12:00 Pulse Ox 98 03/06/22 12:00 O2 Del Method 03/06/22 12:00 03/05/22 03/06/22 03/06/22 22:59 06:59 14:59 Intake Total 290 / 1320 50 / 1370 110 / 110 Output Total 1200 / 1200 50 / 50 Balance 290 / 1320 -1150 / 170 60 / 60 Physical Exam Const: COMMON NORMALS: patient oriented x3 and alert GENERAL APPEARANCE: cooperative and frail appearing NUTRITIONAL APPEARANCE: thin ORIENTATION/CONSCIOUSNESS: Yes awake HENMT: COMMON NORMALS: oropharynx normal Neck/C-Spine: COMMON NORMALS: no JVD Resp: COMMON NORMALS: normal respiratory effort and clear to auscultation bilaterally AUSCULTATION: clear to auscultation bilaterally Cardio: COMMON NORMALS: no JVD, regular rhythm, S1 normal heart sound present, S2 normal heart sound present and No murmurs present (Cardio) RHYTHM: regular rhythm HEART SOUNDS: S1 normal heart sound present and S2 normal heart sound present GI: COMMON NORMALS: Normal to inspection, nondistended, normoactive bowel sounds present, Soft to palpation and non-tender PALPATION: Yes Soft to palpation : OTHER: Urostomy. Colostomy. Extremity: COMMON NORMALS: no joint enlargement and no pedal edema Neuro: COMMON NORMALS: patient oriented x3 and moves all extremities SENSORIUM/ORIENTATION: Yes alert Skin: COMMON NORMALS: no rashes or lesions noted GENERAL SKIN EXAM: no rashes or lesions noted Data 03/01/22 05:36 03/01/22 14:13 Micro: Microbiology 03/01/22 05:36 Blood Culture - Final Blood NO GROWTH AFTER 5 DAYS 03/01/22 05:36 Blood Culture - Final Blood NO GROWTH AFTER 5 DAYS A&P Assessment and plan (1) Bacteremia due to Pseudomonas: Continue with Zosyn empirically while here. Stool in ostomy bag appears more liquid. We will request for C. difficile. Blood cultures from admission positive for Pseudomonas. Repeat cultures so far negative. Secondary to obstructive pyelonephritis with bilateral hydronephrosis. Per prior discussions with urology and patient would need transfer to higher level facility from nephrostomies, but does not want to pursue further aggressive treatments instead preferring to transition to emphasis on comfort with hospice care. Pain control is better, continue to optimize while awaiting placement for continuation of hospice care. Otherwise pain is not optimally controlled, will increase frequency of oxycodone after acute 4-hour as needed and will increase further depending on response. Continue tramadol as needed. Appears to prior adverse reaction to morphine. Additionally pending arrangements for continued hospice care after discharge. (2) Pyelonephritis: (3) Metabolic acidosis: Combine secondary to dehydration, as well as ileal conduit, CKD. Off IVF. Home dose of sodium bicarbonate. (4) Dehydration: Received IV fluids. Continue oral intake as tolerating. (5) Hyponatremia: Resolved. (6) Acute kidney injury: Baseline creatinine seems to be 1.4-1.6. Down to baseline. Secondary dehydration. (7) Physical deconditioning: (8) Goals of care, counseling/discussion: (9) Protein-energy malnutrition: Plan Glycemic control: Not needed. Hypoglycemia protocols Nutrition: Regular diet with protein shakes in each meal CODE STATUS: DNR/DNI PUD prophylaxis: Protonix DVT prophylaxis: SCDs, hold off on heparin as patient is hospice care. Discharge planning: SNF with hospice. Preferably at [facility] as per family. Attestations Medical Necessity Statement*: Continue IV antibiotic while here for pseudomonal bacteremia, continue arrangements for post discharge hospice care for optimization of pain control. Coding Level of Care Code Acute Professor Of Geology for Chg Fwd Diagnoses Bacteremia due to Pseudomonas R78.81; B96.5 Pyelonephritis N12 Metabolic acidosis E87.20 Dehydration E86.0 Hyponatremia E87.1 Acute kidney injury N17.9 Physical deconditioning R53.81 Goals of care, counseling/discussion Z71.89 Protein-energy malnutrition E46
[2022-03-06 16:34] LABS: Glucose Point of Care 97 mg/dL (70-110)
[2022-03-06 20:47] LABS: Glucose Point of Care 130 mg/dL (70-110)
[2022-03-07] VITALS (8 sets, daily range): BP systolic 107–124; BP diastolic 60–69; PULSE 74–86; RESP 16–18; TEMP 37–37.1; O2SAT 95–99
[2022-03-07] MEDS: oxyCODONE 5 mg IR Tab/Cap 10 MG PO ×4 (00:31→14:09)
[2022-03-07] MEDS: piperacillin-tazobactam 3.375 GM in sodium chloride 0.9% (plus) 50 ML IV (04:35)
[2022-03-07 06:35] LABS: Glucose Point of Care 75 mg/dL (70-110)
[2022-03-07] MEDS: phosphorus 250 mg Tablet PO (08:22)
[2022-03-07] MEDS: pantoprazole DR 40 mg Tablet PO (08:23)
[2022-03-07] MEDS: sodium bicarbonate 650 mg Tablet PO ×2 (08:23→14:52)
--- NOTE | 2022-03-07 08:38 | PC.SOCIAL ---
IMM update IMM updated with patient. Verbalized an understanding. Copy Pg 2 provided. Initialled, dated, timed, and placed in chart.
[2022-03-07] MEDS: ondansetron 2 mg/ML SDV 2 mL 4 MG IVP (10:47)
--- NOTE | 2022-03-07 11:54 | PM.DCS ---
Discharge Providers Date of Admission: 02/26/22 22:25 Date of Discharge: March 07, 2022 Attending Provider at Admission: Caitlyn Parry MD Attending Provider at Discharge: Son Godoy Primary Care Provider: Alexandre Edwards DO Diagnoses at Discharge Discharge Diagnosis (1) Bacteremia due to Pseudomonas: Status: Acute (2) Pyelonephritis: Status: Acute (3) Metabolic acidosis: Status: Acute (4) Dehydration: Status: Acute (5) Hyponatremia: Status: Acute (6) Acute kidney injury: Status: Acute (7) Physical deconditioning: Status: Acute (8) Goals of care, counseling/discussion: Status: Acute (9) Protein-energy malnutrition: Status: Acute Reason for Visit Reason for Visit: SOB Hospital Course Hospital Course Not sure what exactly it happened there Pleasant 66-year-old lady with history of vulvar cancer, status post colostomy, ileal conduit with urostomy, with history of recurrent pyelonephritis, obstructive nephropathy, bilateral hydronephrosis, was admitted for cyst management after presenting with malaise, some fevers, leakage around stoma. On presentation found to be dehydrated, with hyponatremia sodium 119, leukocytosis of 17,000, again with metabolic acidosis, LORRI, creatinine up to 2.6. She has continued on oral bicarbonate due to recurrent acidosis secondary to ileal conduit. Due to concern for pyelonephritis with vesicoureteric reflux versus obstruction, staghorn calculus, transfer to high-level care facility, no beds were available in [place] at [facility] or [facility], she declined transfer to [facility]. Received IV hydration, transiently also on bicarb drip. Treated empirically with antibiotic with Zosyn due to concern for again complicated urinary infection. Renal and electrolyte abnormalities have improved, came back to baseline. Blood cultures are growing Pseudomonas aeruginosa with bacteremia secondary to bilateral pyelonephritis, which was pansensitive. As per discussion with urology given altered anatomy would not be a good candidate for retrograde ureteral stents. Would need bilateral nephrostomies, possibly multiple procedures for stent placement. With her overall condition, including also malnutrition, functional decline as per discussion of management options she had expressed would not want further surgeries elected instead to initiate care with hospice which she will follow [facility] at [facility]. Discontinue Zosyn while in hospital, will complete antibiotic course with ciprofloxacin. On hospital colostomy output. Transiently more liquid, was tested for C. difficile and was negative. Physical Exam Const: COMMON NORMALS: patient oriented x3 and alert GENERAL APPEARANCE: cooperative and frail appearing NUTRITIONAL APPEARANCE: thin ORIENTATION/CONSCIOUSNESS: Yes awake HENMT: COMMON NORMALS: oropharynx normal Neck/C-Spine: COMMON NORMALS: no JVD Resp: COMMON NORMALS: normal respiratory effort and clear to auscultation bilaterally AUSCULTATION: clear to auscultation bilaterally Cardio: COMMON NORMALS: no JVD, regular rhythm, S1 normal heart sound present, S2 normal heart sound present and No murmurs present (Cardio) RHYTHM: regular rhythm HEART SOUNDS: S1 normal heart sound present and S2 normal heart sound present GI: COMMON NORMALS: Normal to inspection, nondistended, normoactive bowel sounds present, Soft to palpation and non-tender PALPATION: Yes Soft to palpation : OTHER: Urostomy. Colostomy. Extremity: COMMON NORMALS: no joint enlargement and no pedal edema Neuro: COMMON NORMALS: patient oriented x3 and moves all extremities SENSORIUM/ORIENTATION: Yes alert Skin: COMMON NORMALS: no rashes or lesions noted GENERAL SKIN EXAM: no rashes or lesions noted Discharge Data Studies Completed and Pending Completed Studies During Hospitalization Category [place] [id number] Stat Cat Scan 02/26/22 18:17 Completed XR chest 1V portable [id number] Stat Exams 02/26/22 16:10 Completed Pending at discharge Category Date Time Status COVID [SARS Covid-2 Antigen] Routine Lab 03/07/22 10:46 Uncollected Radiology Impressions Chest X-Ray 02/26/22 16:10 IMPRESSION: Negative for infiltrate. Chest/Abdomen/Pelvis CT 02/26/22 18:17 IMPRESSION: 1. Negative for airspace infiltrates 2. Coronary artery atherosclerotic calcifications. 3. Emphysematous changes. 4. Scattered calcified benign granulomas. IMPRESSION: 1. 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 2. Right kidney interpolar region nonobstructive calyceal stone, similar to prior exam. 3. Left kidney appears duplicated with a lower pole nonobstructive staghorn calculus, similar to prior exam. 4. Severe left hydronephrosis and hydroureter, distal extent of the ureter is not well seen given bowel loops and air-fluid collection in the pelvis, similar to prior exam. 5. Complex collection of fluid and air in the urinary bladder measuring at least 12 cm, similar to prior exam again may reflect a dilated cecum or part of the ileal conduit, a CT with intravenous and enteric contrast could help better define this. 6. Cholecystectomy. 7. Several left kidney cysts, negative for follow-up advised. Laboratory Results WBC 10.9 10^3/uL (4.0-10.0) H 03/01/22 05:36 RBC 2.86 10^6/uL (4.1-5.3) L 03/01/22 05:36 Hgb 8.6 g/dL (11.5-15.3) L 03/01/22 05:36 Hct 26.1 % (37.0-47.0) L 03/01/22 05:36 MCV 91.3 fl (81-99) 03/01/22 05:36 MCH 30.1 pg (28.0-34.0) 03/01/22 05:36 MCHC 33.0 g/dL (30.0-36.0) 03/01/22 05:36 RDW 17.8 % (12.1-15.1) H 03/01/22 05:36 Plt Count 170 10^3/cmm (130-400) 03/01/22 05:36 MPV 10.9 fL (7.4-10.4) H 03/01/22 05:36 Neut % (Auto) 84.9 % 03/01/22 05:36 Lymph % (Auto) 7.2 % 03/01/22 05:36 [place] % (Auto) 5.3 % 03/01/22 05:36 Eos % (Auto) 1.3 % 03/01/22 05:36 Baso % (Auto) 0.3 % 03/01/22 05:36 Neut # (Auto) 9.26 10^3/uL (1.8-7.7) H 03/01/22 05:36 Lymph # (Auto) 0.8 10^3/uL (0.8-4.8) 03/01/22 05:36 [place] # (Auto) 0.6 10^3/uL (0.2-0.9) 03/01/22 05:36 Eos # (Auto) 0.1 10^3/uL (0.0-0.8) 03/01/22 05:36 Baso # (Auto) 0.0 10^3/uL (0.0-0.1) 03/01/22 05:36 Nucleated RBC % (auto) 0 % 03/01/22 05:36 Nucleated RBCs # 0.0 /100WBC 03/01/22 05:36 Specimen Type Arterial 02/27/22 09:46 Sample Site Brachial, left 02/27/22 09:46 ABG pH 7.29 (7.35-7.45) L 02/27/22 09:46 ABG pCO2 14.7 mmHg (35-45) L* 02/27/22 09:46 ABG pO2 105.0 mmHg (80.0-100.0) H 02/27/22 09:46 ABG HCO3 7.0 mmol/L (22-26) L 02/27/22 09:46 ABG O2 Saturation 99.0 02/27/22 09:46 ABG Base Excess -17.4 mmol/L (-2.0-2.0) L 02/27/22 09:46 [place]ane Test Pos 02/27/22 09:46 A-a O2 Gradient 3.1 mmHg (5-10) L 02/27/22 09:46 Hematocrit 32.5 % (37-47) L 02/27/22 09:46 Hgb O2 Saturation 97.0 % (95-100) 02/27/22 09:46 Carboxyhemoglobin 0.9 %THgb (0.4-20.1) 02/27/22 09:46 Methemoglobin 1.1 % (0.4-1.5) 02/27/22 09:46 Total Hemoglobin 10.6 g/dL (12-16) L 02/27/22 09:46 Sodium 131.0 mmol/L (131-143) 02/27/22 09:46 Potassium 2.6 mmol/L (3.5-5.0) L 02/27/22 09:46 Glucose 91.0 mg/dL (70-115) 02/27/22 09:46 Ionized Calcium 1.2 mmol/L (1.1-1.4) 02/27/22 09:46 O2 Delivery Device Room air 02/27/22 09:46 Manager Membership ID Cak 02/27/22 09:46 Sodium 135 mmol/L (136-145) L 03/01/22 14:13 Potassium 4.0 mmol/L (3.5-5.1) 03/01/22 14:13 Chloride 108 mmol/L (98-107) H 03/01/22 14:13 Carbon Dioxide 15 mmol/L (22-29) L 03/01/22 14:13 Anion Gap 16.0 (5-19) 03/01/22 14:13 BUN 18 mg/dL (8-23) 03/01/22 14:13 Creatinine 1.3 mg/dL (0.5-0.9) H 03/01/22 14:13 GFR Calculation 40.9 mL/min (90-130) L 03/01/22 14:13 Glucose 186 mg/dL (65-115) H 03/01/22 14:13 POC Glucose 75 mg/dL (70-110) 03/07/22 06:23 Calculated Osmolality 287 mOsm/kg (285-295) 03/01/22 14:13 Lactic Acid 1.6 mmol/L (0.5-2.2) 02/26/22 19:22 Calcium 7.3 mg/dL (8.5-10.5) L 03/01/22 14:13 Magnesium 2.2 mg/dL (1.7-2.3) 02/26/22 17:26 Total Bilirubin 0.5 mg/dL (0.15-1.2) 02/28/22 05:38 AST 10 U/L (0-32) 02/28/22 05:38 ALT < 5 U/L (0-33) 02/28/22 05:38 Alkaline Phosphatase 203 U/L (35-105) H 02/28/22 05:38 Troponin T Baseline 33 ng/L (0-10) H 02/26/22 17:26 Troponin T 120 Minute 31.04 ng/L (0-10) H 02/26/22 19:22 Delta Troponin T -1.96 ABS# (0-10) L 02/26/22 19:22 Troponin T Hi Sens 6Hr 29.29 ng/L (0-10) H 02/26/22 22:42 Troponin T Hi Sens 6Hr Delta -3.71 ng/L (0-12) L 02/26/22 22:42 C-Reactive Protein 245.4 mg/L (0.0-4.9) H 02/26/22 17:26 NT-Pro-B Natriuret Pep 1551 pg/mL (0-125) H 02/26/22 17:26 Total Protein 4.8 g/dL (6.6-8.7) L 02/28/22 05:38 Albumin 2.0 g/dL (3.5-5.2) L 02/28/22 05:38 Globulin 2.8 g/dL (1.3-4.6) 02/28/22 05:38 Procalcitonin 58.21 ng/mL (0-0.5) H 02/26/22 17:26 TSH 0.39 uIU/mL (0.27-4.20) 02/26/22 17:26 Urine Color Light yellow (Yellow) 02/26/22 19:58 Urine Appearance Turbid (CLEAR) A 02/26/22 19:58 Urine pH 6 (5-7) 02/26/22 19:58 Ur Specific [place] 1.015 (1.005-1.030) 02/26/22 19:58 Urine Protein 2+ (Negative) H 02/26/22 19:58 Urine Glucose (UA) Norm (Normal) 02/26/22 19:58 Urine Ketones Negative (Negative) 02/26/22 19:58 Urine Blood 3+ (Negative) H 02/26/22 19:58 Urine Nitrate Negative (Negative) 02/26/22 19:58 Urine Bilirubin Neg (Negative) 02/26/22 19:58 Urine Urobilinogen Norm mg/dL (Negative) 02/26/22 19:58 Ur Leukocyte Esterase 2+ (Negative) H 02/26/22 19:58 Urine RBC Too numerous to cnt /hpf (0-2) H 02/26/22 19:58 Urine WBC Too numerous to cnt /hpf (0-5) H 02/26/22 19:58 Ur Squamous Epith Cells None /hpf (0-5) 02/26/22 19:58 Amorphous Sediment Not Reportable 02/26/22 19:58 Urine Bacteria 4+ /hpf (NONE) H 02/26/22 19:58 Urine Mucus 3+ /hpf 02/26/22 19:58 Coronavirus 229E (PCR) Not detected (NOT DETECT) 02/26/22 19:58 SARS-CoV-2 (PCR) Not detected (NOT DETECT) 02/26/22 19:58 Vitals Last Vital Signs Temp 98.8 F 03/07/22 07:35 Pulse 81 03/07/22 07:35 Resp 18 03/07/22 08:22 BP 107/60 03/07/22 07:35 Pulse Ox 95 03/07/22 08:22 O2 Del Method 03/07/22 07:35 Discharge Plan Discharge Patient Disposition: Hospice - Medical Facility Condition: Stable Prescriptions: New ciprofloxacin HCl 500 mg tablet 500 mg PO BID Qty: 40 0RF Continued oxycodone 5 mg tablet 7.5 mg PO Q6H PRN (Reason: Moderate Pain) 30 Days Qty: 84 0RF sodium bicarbonate 650 mg Tablet 650 mg PO TID Qty: 100 3RF Q-Keui-Mpqpolq 250 mg tablet 1 tab PO DAILY Qty: 60 3RF potassium chloride 10 mEq tablet extended release 10 meq PO DAILY Qty: 20 0RF Lanolin (HPA) 100 % Cream 1 applic topical PRN PRN (Reason: Dryness) Qty: 21 0RF naloxone [Narcan] 4 mg/actuation spray,non-aerosol 1 spray intranasal Q2M PRN (Reason: opioid overdose) Qty: 2 0RF Rx Instructions: spray 1 dose into ONE nostril; alternate nostrils w each dose until help arrives Held tizanidine 2 mg tablet 2 mg PO Q8H PRN (Reason: muscle spasticity) Qty: 60 0RF Hold Instructions: Resume on 03/22/22. Until after Cipro is completed Discharge Orders: Discharge Order (Routine); Ordered 03/07/22 Ordered By: Son Godoy Referrals: Primary, provider [Other] - 4-7 days [place] [Other] [facility] [Outside] Alexandre Edwards, DO [Primary Care Provider] - Discharge Diet: Regular Discharge Activity: Resume usual activity and Increase activity as tolerated Patient Instructions: Ciprofloxacin (By mouth), Hospice Care (GEN) Discharge Attestations Time Spent in Discharge Care*: greater than 30 min Quality Metrics Clinical Quality Measures [ No reported AMI, CVA or VTE this stay] Coding Level of Care Code Acute Chg FW DC note Diagnoses Bacteremia due to Pseudomonas R78.81; B96.5 Pyelonephritis N12 Metabolic acidosis E87.20 Dehydration E86.0 Hyponatremia E87.1 Acute kidney injury N17.9 Physical deconditioning R53.81 Goals of care, counseling/discussion Z71.89 Protein-energy malnutrition E46
[2022-03-07 11:57] LABS: Glucose Point of Care 94 mg/dL (70-110)
[2022-03-07 12:46] LABS: SARS Covid-2 Antigen negative (Negative)
--- NOTE | 2022-03-07 13:48 | PC.NURSE ---
1300 Report called to Denilson SCHULTZ at [facility] in [facility]
[2022-03-07] MEDS: TRAMadol 50 mg Tablet PO (16:25)
--- NOTE | 2022-03-07 20:16 | PC.NURSE ---
1620 EMS here and report given. patient illeostomy and urostomy emptied. patient family at bedside. 1640 patient discharged to [facility] in [facility]. with EMS patient in stable condition. Personal belongings packed and sent with patient and EMS
--- NOTE | 2022-03-07 20:20 | PC.NURSE ---
1030 Patients Illiestomy leaking stool patient bathed and appliance changed per patients direction. patient tolerated well
== END 2022-03-07 17:00 | disposition hospice, home (50) | DRG 871 ==
LOC: ER 21:51 → ICU 22:25 → MEDSURG 02-28 00:57
PROVIDERS: Student in an Organized Health Care Education/Training Program; Admitting Provider Student in an Organized Health Care Education/Training Program; Emergency Provider Emergency Medicine; PCP Family Medicine; Visit Provider Internal Medicine
DX: A41.9 Sepsis, unspecified organism (principal); E43 Unspecified severe protein-calorie malnutrition; N13.6 Pyonephrosis; E87.1 Hypo-osmolality and hyponatremia; E87.20 Acidosis, unspecified; Z68.1 Body mass index [BMI] 19.9 or less, adult; N17.9 Acute kidney failure, unspecified; Z85.89 Personal history of malignant neoplasm of other organs and systems; Z93.3 Colostomy status; Z93.2 Ileostomy status; G89.29 Other chronic pain; N18.9 Chronic kidney disease, unspecified; M47.812 Spondylosis without myelopathy or radiculopathy, cervical region; M79.7 Fibromyalgia; Z87.442 Personal history of urinary calculi; Z98.84 Bariatric surgery status; E86.0 Dehydration; Z79.891 Long term (current) use of opiate analgesic; Z75.1 Person awaiting admission to adequate facility elsewhere; B96.5 Pseudomonas (aeruginosa) (mallei) (pseudomallei) as the cause of diseases classified elsewhere; Z66 Do not resuscitate
CPT/HCPCS: 36415; 36416; 36600; 71045; 71250; 74176; 80048; 80051; 80053; 81001; 82330; 82803; 82805; 82962; 83605; 83735; 83880; 84145; 84443; 84484; 85025; 86140; 87040; 87077; 87086; 87186; 87426; 87493; 87635; 93005; 96365; 96367; 96372; 97110; 97161; 99291; J0692; J1644; J2405; J2543; J3370; J3480; J7030; J7050; J7070; J7120